=== PATIENT | female | born 1950 | race Caucasian/White ===

== ENCOUNTER 2017-12-02 13:42 | Inpatient (IN) | payer MEDICARE, OTHER ==
[~2017-12-02 13:42] MED LIST: MIDAZOLAM 2 MG/2 ML VIAL IV PRN; ceFAZolin 1,000 MG in SODIUM CHLORIDE 0.9% IRRIGATIO 250 ML IRRIGATION ONE; ceFAZolin IN SWFI 2 GM/20 ML SYRINGE IVP ONE; fentaNYL (PF) 50 MCG/ML 2 ML AMP IV PRN
[2017-12-02 14:27] LABS: Glucose,Whole Blood 121 mg/dL (75-99)
[2017-12-02] MEDS: SODIUM CHLORIDE 0.9% 1,000 ML IV SCH (14:31)
[2017-12-02 14:40] LABS: Anisocytosis Slight; Basophils % (A) 0 %; Eosinophils # (A) 0.2 k/uL (0-0.7); Eosinophils % (A) 2 %; HCT 34.1 % (34.0-46.0); HGB 10.8 gm/dL (11.4-16.0); Lymphocytes # (A) 1.2 k/uL (1.0-4.8); Lymphocytes % (A) 12 %; MCHC 31.8 g/dL (31.0-37.0); MCV 85.1 fL (80.0-100.0); Mean Platelet Volume 7.9; Monocytes # (A) 0.7 k/uL (0-1.0); Monocytes % (A) 7 %; Neutrophils # (A) 7.6 k/uL (1.3-7.7); Neutrophils % (A) 77 %; Platelet Count 205 k/uL (150-450); RBC 4.01 m/uL (3.80-5.40); RDW 16.3 % (11.5-15.5); WBC 9.9 k/uL (3.8-10.6)
[2017-12-02 14:45] LABS: Calcium 9.2 mg/dL (8.4-10.2); Potassium 4.8 mmol/L (3.5-5.1)
[2017-12-02 14:47] LABS: INR 2.5 (<1.2); Prothrombin Time 22.4 sec (9.0-12.0)
[2017-12-02] MEDS ORDERED: LIDOCAINE 1% INJ 10MG/ML (20 ML MDV) ONE (15:04)
[2017-12-02] MEDS ORDERED: LIDOCAINE 1% INJ 10MG/ML (20 ML MDV) SQ ONE ×4 (15:42→17:01)
[2017-12-02] MEDS ORDERED: NITROGLYCERIN OINT 1 INCH/GM PACKET TOPICAL ONE (15:58)
[2017-12-02] MEDS ORDERED: FUROSEMIDE 10 MG/ML 4 ML VIAL ONE ×2 (16:06→16:13)
[2017-12-02] MEDS ORDERED: DOBUTamine DRIP 500 MG in DEXTROSE/WATER 1 250ML.BAG IV ONE (16:45)
[2017-12-02] MEDS ORDERED: ACETAMINOPHEN TAB 325 MG TAB PO PRN (17:24)
--- NOTE | 2017-12-02 17:36 | P.PCN ---
Preoperative Diagnosis: Management of flash pulmonary edema during biventricular ICD generator change Patient started complaining of shortness of breath while lying flat on the EP lab table as the generator, biventricular ICD, was be connected to the leads. Her respirations deteriorated rapidly. motor carrier inspector was called immediately. An additional pump house operator was also called. She was intubated, given 1 dose of IV epinephrine and a biventricular ICD/biventricular pacemaker was programmed to a single zone VF with Bi V pacing turned on a total of 120 mg of IV Lasix was administered followed by an IV Lasix drip that was started at 10 mg /h Briefly 1 inch of Nitropaste was used which was removed later. Under sterile precautions 1. A Solis catheter was placed Under sterile precautions a right femoral venous sheath was placed for central venous access. Access was obtained a guidewire was placed and an 8-Burkinan sheath was placed in the femoral vein on the right side Under sterile precautions femoral arterial access was obtained. A guidewire was placed. A 5-Burkinan arterial sheath was placed for continuous hemodynamic monitoring and sampling Both the arterial and venous sheaths were then secured to the skin Plan ICU management IV Lasix drip 10 mg an hour IV antibiotics 4 doses IV dobutamine 5 g per KG per minute IV dopamine 2 mics per KG per minute Strict intake output charting Continue warfarin, continue spironolactone Continue statins, continue Singulair Hold beta blockers and angiotensin receptor blockers Discussed with family including and daughter
[2017-12-02] MEDS ORDERED: IPRATROPIUM-ALBUTEROL 3 ML NEB INHALATION PRN (18:54)
[2017-12-02] MEDS ORDERED: PROPOFOL 100 ML IV ONE (18:55)
[2017-12-02 18:58] LABS: Glucose,Whole Blood 208 mg/dL (75-99)
[2017-12-02] MEDS: LACTATED RINGERS 1,000 ML IV SCH (19:11)
[2017-12-02] MEDS: FUROSEMIDE 250 MG in SODIUM CHLORIDE 0.9% 225 ML IVP SCH (19:15)
[2017-12-02 19:31] LABS: ABG Base Excess 0.2 mmol/L; ABG HCO3 27 mmol/L (21-25); ABG PCO2 58 mmHg (35-45); ABG PH 7.28 (7.35-7.45); ABG PO2 86 mmHg (83-108); ABG TCO2 29 mmol/L (19-24)
--- NOTE | 2017-12-02 19:45 | CE ---
CARDIAC ELECTROPHYSIOLOGY REPORT Priscilla Gee has a biventricular ICD which is at [facility]. She has severe congestive heart failure class III as well as severe cardiomyopathy and device at [facility] for normal battery depletion. She was brought into the EP lab in the fasting state. Written informed consent was obtained prior to the procedure. The left shoulder area was prepped and draped as per protocol. An incision was made over the generator and carried down to the level of the generator. Hemostasis was assured. A partial capsulectomy was performed. The device was removed. A new device was connected. As the new device was being connected, she started complaining of shortness of breath and difficulty breathing and went into flash pulmonary edema with acute respiratory failure, requiring intubation. Please see the separate dictation for this. As she was being intubated by anesthesia, the incision site was covered sterilely and with sterile precautions and once she was intubated and her respirations were controlled, the wound was closed in 3 layers and dressed per protocol. She received perioperative antibiotics. MMODL / IJN: [id number] /
[2017-12-02] MEDS: IPRATROPIUM-ALBUTEROL 3 ML NEB INHALATION SCH ×2 (20:00→23:16)
[2017-12-02] MEDS ORDERED: NOREPINEPHRINE 4 MG in DEXTROSE 5% IN WATER 250 ML IV SCH ×2 (20:15)
[2017-12-02] MEDS ORDERED: NOREPINEPHRIN 4 MG-0.9% NS PMX 4 MG/250 ML ML IV ONE (20:32)
[2017-12-02] MEDS: AMIODARONE 450 MG in DEXTROSE 5% IN WATER 250 ML IV SCH ×2 (21:00)
--- NOTE | 2017-12-02 21:16 | XR ---
EXAMINATION: XR chest 1V portable DATE AND TIME: 12/02/2017 7:14 PM ORDERING PROVIDER: Tennille Armenta MD CLINICAL INDICATION: Tube placement TECHNIQUE: AP semiupright portable COMPARISON: 12/20/2015 DESCRIPTION: ET tube tip at the ryan and may be better placed if withdrawn 3 cm proximally. Cardiac pacemaker and EKG leads. There is a whiteout of the right hemithorax, having the appearance of a posteriorly layering large pl eural effusion and airspace filling process throughout the right upper and mid and lower lung zones. There remains partial inflation of the right lung, however. Left upper lung zone is well inflated. The left mid and lower lung zone appears only partially inflat ed. Moderately enlarged cardiac silhouette. No definite abnormal gas collections, but supine radiography cannot exclude pneumothorax or pneumoperitoneum. IMPRESSION: POST INTUBATION CHEST X-RAY, ET TUBE TIP MAY BE BETTER PLACED MORE PROXIMALLY.
[2017-12-02 21:24] LABS: ABG Base Excess -1.9 mmol/L; ABG HCO3 24 mmol/L (21-25); ABG Oxygen Saturation 95.6 % (94-97); ABG PCO2 45 mmHg (35-45); ABG PH 7.34 (7.35-7.45); ABG PO2 76 mmHg (83-108); ABG TCO2 25 mmol/L (19-24)
[2017-12-02] MEDS: WARFARIN 3 MG TAB PO SCH (21:54)
[2017-12-02] MEDS: PROPOFOL 1,000 MG in EMPTY BAG 1 BAG IV SCH (21:55)
[2017-12-02] MEDS: INSULIN DETEMIR 100 UNIT/ML 10 ML VIAL SQ SCH (22:00)
[2017-12-02] MEDS: MONTELUKAST 10 MG TAB PO SCH (22:00)
[2017-12-02] MEDS: CHLORHEXIDINE GLUCONATE 15 ML CUP MUCOUS MEM SCH (22:00)
[2017-12-02] MEDS: ATORVASTATIN 20 MG TAB PO SCH (22:00)
[2017-12-02] MEDS: ceFAZolin IN SWFI 2 GM/20 ML SYRINGE IVP SCH (22:02)
[2017-12-02 22:05] LABS: Glucose,Whole Blood 260 mg/dL (75-99)
[2017-12-02] MEDS ORDERED: INSULIN ASPART 100 UNIT/ML 1 ML 10 ML VIAL SQ SCH (22:30)
[2017-12-02] MEDS ORDERED: fentaNYL (PF) 2,500 MCG in SODIUM CHLORIDE 0.9% 200 ML IV SCH (23:00)
[2017-12-03 00:27] LABS: Glucose,Whole Blood 315 mg/dL (75-99)
[2017-12-03] MEDS: SODIUM CHLORIDE 0.9% 1,000 ML IV SCH (02:30)
[2017-12-03] MEDS: IPRATROPIUM-ALBUTEROL 3 ML NEB INHALATION SCH ×5 (03:15→20:24)
[2017-12-03] MEDS: AMIODARONE 450 MG in DEXTROSE 5% IN WATER 250 ML IV SCH ×8 (03:50→22:32)
[2017-12-03] MEDS: ceFAZolin IN SWFI 2 GM/20 ML SYRINGE IVP SCH ×3 (04:03→15:16)
[2017-12-03] MEDS: INSULIN ASPART 100 UNIT/ML 1 ML 10 ML VIAL SQ SCH ×4 (04:05→18:57)
[2017-12-03] MEDS: PROPOFOL 1,000 MG in EMPTY BAG 1 BAG IV SCH ×2 (04:16→08:35)
[2017-12-03 04:26] LABS: Anisocytosis Slight; HGB 11.1 gm/dL (11.4-16.0); Hypochromasia Slight; MCH 27.2 pg (25.0-35.0); MCHC 31.8 g/dL (31.0-37.0); MCV 85.6 fL (80.0-100.0); Mean Platelet Volume 8.3; Platelet Count 259 k/uL (150-450); RBC 4.09 m/uL (3.80-5.40); WBC 20.3 k/uL (3.8-10.6)
[2017-12-03 04:36] LABS: INR 2.7 (<1.2); Prothrombin Time 24.1 sec (9.0-12.0)
[2017-12-03 04:41] LABS: Albumin 3.4 g/dL (3.5-5.0); Calcium 8.6 mg/dL (8.4-10.2); Magnesium 1.9 mg/dL (1.6-2.3); Phosphorus 4.1 mg/dL (2.5-4.5); Total Bilirubin 0.2 mg/dL (0.2-1.3); Total Protein 5.7 g/dL (6.3-8.2)
[2017-12-03] MEDS ORDERED: Magnesium Replacement Protocol 1 EACH MISC MISCELLANE PRN (04:54)
[2017-12-03] MEDS ORDERED: NOREPINEPHRIN 16 MG-0.9%NS PMX 16 MG/250 ML ML IV SCH (05:30)
--- NOTE | 2017-12-03 06:28 | P.PN ---
Progress Note - Text Progress Note Date: 12/02/17 Brief incident note: Patient is a 66-year-old female who was scheduled for by the pacemaker generator change. Patient is a history of severe cardiomyopathy with an EF of 15%. Prior to procedure patient stated that she was tolerant to laying flat, and throughout the majority of the procedure the patient was tolerating laying supine position well. However about three quarters into the procedure was to new generator was placed, patient was complaining of shortness of breath. She is quickly placed in the reverse Trendelenburg position as much was allowed on the electrophysiology bed. Patient appeared to go into flash pulmonary edema. We quickly secured and airway with an endotracheal tube. During the process of securing an airway we will unable to obtain a palpable pulse, and ACLS protocol then ensued. Chest compressions were initiated and 1 mg of epinephrine wasn't was given. A pulse was quickly then identified within 1 minute and ACLS was suspended. Arterial line and central venous catheter were placed. Prior to transportation to the intensive care unit, patient was following commands moving all extremities, and hemodynamically stable on dobutamine 5 mics per KG minute.
[2017-12-03 06:51] LABS: Glucose,Whole Blood 233 mg/dL (75-99)
[2017-12-03] MEDS: LEVOTHYROXINE 25 MCG TAB PO SCH (06:57)
[2017-12-03] MEDS: LACTATED RINGERS 1,000 ML IV SCH (07:03)
--- NOTE | 2017-12-03 07:18 | XR ---
EXAMINATION TYPE: XR chest 1V portable DATE OF EXAM: 12/03/2017 Comparison: 12/02/2017 Clinical History: 66-year-old female Tube placement Findings: ET tube has been pulled back in the interval. The tip is 3.7 cm from the ryan. NG tube is satisfact ory. Left anterior chest wall is the generator with right atrial and right ventricular leads. Overlyi ng skin dorcas. Significantly improved aeration of the right lung though residual hazy densities rem ain throughout. Continued dense opacity in the retrocardiac region. Impression: 1. ET tube pulled back, now satisfactory, with improving aeration in the right lung. There is residua l diffuse edema or atelectasis that remains on the right. 2. Continued dense retrocardiac atelectasis and/or consolidation or underlying effusion.
--- NOTE | 2017-12-03 08:10 | P.PN ---
Subjective Principal diagnosis: Patient is still intubated. She is on IV Lasix drip has had an adequate urine output of between 50-100 mL per hour. She is not on dobutamine or dopamine is on levo fed for blood pressure management. She has had ventricular ectopy on Levophed. She also had a rapid supraventricular possibly atrial fibrillation and was started on IV amiodarone last night. Labs are reviewed.[id number] hemoglobin 11.1, sodium 135, potassium 4.0, BUN 56, creatinine 1.9 Pulse rate in the 70s, intermittent Bi V pacing, ventricular ectopy noted, on levo fed blood pressure 126/54 mmHg Breath sounds are reduced bilaterally but equal Heart sounds are distant Extremity is warm skin is warm Impression /Pulmonary edema during ICD generator change requiring intubation, IV Lasix push as well as drip, IV dobutamine Central venous line, femoral was placed Femoral arterial line for hemodynamic monitoring was placed Severe cardio myopathy and heart failure history Discussed with nurses Discussed with nurse practitioner Suggest Reduce Levophed dose to maintain blood pressure around 100 systolic Continue IV Lasix drip Continue IV antibiotics Hopefully she can be extubated today and oppressors can come off once her sedation is off Patient of Dr. VC Roman was around Status at this time She will need higher doses of oral diuretics as an outpatient and we will have to except a higher BUN/creatinine to keep her free of heart failure symptoms especially orthopnea Objective - Vital Signs Vital signs: Vital Signs Temp 97.9 F 12/03/17 06:00 Pulse 74 12/03/17 08:00 Resp 23 12/03/17 08:00 BP 178/77 12/02/17 18:40 Pulse Ox 97 12/03/17 08:00 Intake & Output 12/02/17 12/03/17 12/03/17 18:59 06:59 18:59 Intake Total 52 1009.98 80 Output Total 1085 100 Balance 52 -75.02 -20 Weight 125.7 kg 130.181 kg Intake: IV 52 710 80 Furosemide 250 mg In 110 10 Sodium Chloride 0.9% 225 ml @ 10 MG/HR 10 mls/hr IVP .Q24H KRISTY Rx#: [id number] Lactated Ringers 1,000 ml 20 @ 20 mls/hr IV .Q24H KRISTY Rx#:[id number] Sodium Chloride 0.9% 1, 600 50 000 ml @ 50 mls/hr IV . Q20H KRISTY Rx#:[id number] Intake, IV Titration 299.98 Amount Amiodarone 450 mg In 199.98 Dextrose 5% in Water 250 ml @ 1 MG/MIN 33.33 mls/ hr IV .Q7H31M KRISTY Rx#: [id number] Propofol 1,000 mg In 100 Empty Bag 1 bag @ Titrate IV .Q0M KRISTY Rx#: [id number] Output: Urine 1085 100 Other: Voiding Method Indwelling Catheter ABP, PAP, CO, CI - Last Documented Arterial Blood Pressure 126/51 - Labs CBC & Chem 7: 12/03/17 04:14 12/03/17 04:14 Labs: Abnormal Lab Results - Last 24 Hours (Table) 12/02/17 12/02/17 12/02/17 Range/Units 14:10 14:10 14:10 WBC (3.8-10.6) k/uL Hgb 10.8 L (11.4-16.0) gm/dL RDW 16.3 H (11.5-15.5) % PT 22.4 H (9.0-12.0) sec INR 2.5 H (<1.2) ABG pH (7.35-7.45) ABG pCO2 (35-45) mmHg ABG pO2 (83-108) mmHg ABG HCO3 (21-25) mmol/L ABG Total CO2 (19-24) mmol/L Sodium (137-145) mmol/L BUN 56 H (7-17) mg/dL Creatinine 1.70 H (0.52-1.04) mg/dL Glucose 109 H (74-99) mg/dL POC Glucose (mg/dL) (75-99) mg/dL Total Protein (6.3-8.2) g/dL Albumin (3.5-5.0) g/dL 12/02/17 12/02/17 12/02/17 Range/Units 14:19 18:38 19:28 WBC (3.8-10.6) k/uL Hgb (11.4-16.0) gm/dL RDW (11.5-15.5) % PT (9.0-12.0) sec INR (<1.2) ABG pH 7.28 L (7.35-7.45) ABG pCO2 58 H (35-45) mmHg ABG pO2 (83-108) mmHg ABG HCO3 27 H (21-25) mmol/L ABG Total CO2 29 H (19-24) mmol/L Sodium (137-145) mmol/L BUN (7-17) mg/dL Creatinine (0.52-1.04) mg/dL Glucose (74-99) mg/dL POC Glucose (mg/dL) 121 H 208 H (75-99) mg/dL Total Protein (6.3-8.2) g/dL Albumin (3.5-5.0) g/dL 12/02/17 12/02/17 12/03/17 Range/Units 21:20 22:03 00:22 WBC (3.8-10.6) k/uL Hgb (11.4-16.0) gm/dL RDW (11.5-15.5) % PT (9.0-12.0) sec INR (<1.2) ABG pH 7.34 L (7.35-7.45) ABG pCO2 (35-45) mmHg ABG pO2 76 L (83-108) mmHg ABG HCO3 (21-25) mmol/L ABG Total CO2 25 H (19-24) mmol/L Sodium (137-145) mmol/L BUN (7-17) mg/dL Creatinine (0.52-1.04) mg/dL Glucose (74-99) mg/dL POC Glucose (mg/dL) 260 H 315 H (75-99) mg/dL Total Protein (6.3-8.2) g/dL Albumin (3.5-5.0) g/dL 12/03/17 12/03/17 12/03/17 Range/Units 04:14 04:14 04:14 WBC 20.3 H (3.8-10.6) k/uL Hgb 11.1 L (11.4-16.0) gm/dL RDW 16.0 H (11.5-15.5) % PT 24.1 H (9.0-12.0) sec INR 2.7 H (<1.2) ABG pH (7.35-7.45) ABG pCO2 (35-45) mmHg ABG pO2 (83-108) mmHg ABG HCO3 (21-25) mmol/L ABG Total CO2 (19-24) mmol/L Sodium 135 L (137-145) mmol/L BUN 56 H (7-17) mg/dL Creatinine 1.90 H (0.52-1.04) mg/dL Glucose 259 H (74-99) mg/dL POC Glucose (mg/dL) (75-99) mg/dL Total Protein 5.7 L (6.3-8.2) g/dL Albumin 3.4 L (3.5-5.0) g/dL 12/03/17 Range/Units 06:28 WBC (3.8-10.6) k/uL Hgb (11.4-16.0) gm/dL RDW (11.5-15.5) % PT (9.0-12.0) sec INR (<1.2) ABG pH (7.35-7.45) ABG pCO2 (35-45) mmHg ABG pO2 (83-108) mmHg ABG HCO3 (21-25) mmol/L ABG Total CO2 (19-24) mmol/L Sodium (137-145) mmol/L BUN (7-17) mg/dL Creatinine (0.52-1.04) mg/dL Glucose (74-99) mg/dL POC Glucose (mg/dL) 233 H (75-99) mg/dL Total Protein (6.3-8.2) g/dL Albumin (3.5-5.0) g/dL
[2017-12-03] MEDS: MAGNESIUM SULFATE-D5W PMX 1 GM in DEXTROSE/WATER 1 100ML.BAG IVPB SCH ×2 (08:39→10:03)
[2017-12-03] MEDS: CHLORHEXIDINE GLUCONATE 15 ML CUP MUCOUS MEM SCH (08:40)
[2017-12-03] MEDS: SPIRONOLACTONE 25 MG TAB PO SCH (08:40)
[2017-12-03] MEDS ORDERED: LIDOCAINE 2% SYG (PF) 100 MG/5 ML ONE (09:18)
[2017-12-03 09:25] LABS: ABG Base Excess 0.2 mmol/L; ABG HCO3 24 mmol/L (21-25); ABG PCO2 36 mmHg (35-45); ABG PH 7.44 (7.35-7.45); ABG PO2 78 mmHg (83-108); ABG TCO2 25 mmol/L (19-24)
[2017-12-03 12:17] LABS: Glucose,Whole Blood 170 mg/dL (75-99)
[2017-12-03 13:23] LABS: Hemoglobin A1C 6.7 % (4.0-6.0)
--- NOTE | 2017-12-03 13:26 | P.CNPUL ---
History of Present Illness Consult date: 12/03/17 Requesting physician: Larry Hogan Reason for consult: other (Acute respiratory failure secondary to pulmonary edema) Chief complaint: Status post ICD generator change, complicated by acute pulmonary edema and History of present illness: This is a 66-year-old female, known history of severe cardiomyopathy, previous biventricular ICD placement. Patient has chronic severe congestive heart failure class III, patient was brought in yesterday by cardiology/Dr. Chavez for ICD generator change. While in the EP lab, left shoulder incision was made , partial capsulectomy was performed, device was removed, and a new device was connected. As the new device was being connected, patient started complaining of shortness of breath and difficulty breathing. Clinically the patient went into flash pulmonary edema with acute respiratory failure requiring intubation and mechanical ventilation. Patient was admitted to the intensive care unit and I was asked to see her on consultation. Overnight, the patient required pressors, she also required Lasix drip. I reviewed the chest x-ray shortly after the patient was intubated, and she was clearly in pulmonary edema. When I saw the patient this morning, her chest x-ray showed dramatic improvement, however she was still on 9 g of levo fed. Patient was also on the following vent settings assist control rate of 24 tidal volume of 400 FiO2 of 50% and PEEP of 5. ABG this morning showed a pO2 of 7 pCO2 of 36 and pH of 7.44. Labs , medications, ABG, were all reviewed chest x-ray was also reviewed. Patient was already on propofol which I have discontinued, awaken the patient, and she was very appropriate and followed all instructions properly. Then I proceeded to a short trial of weaning utilizing pressure support of 8 and CPAP. Patient did well for about half an hour while I was at bedside. Then I proceeded to extubating the patient. In the meantime I kept the patient on her Lasix drip, and she is back on her usual cardiac meds. Norepinephrine will be titrated down and hopefully discontinued soon. Patient had an excellent urine output, and her labs were basically unremarkable. She was noted however to have some ventricular ectopy on levo fed, and she was on amiodarone overnight. Review of Systems ROS unobtainable: due to endotracheal tube Past Medical History Past Medical History: Asthma, Coronary Artery Disease (CAD), Heart Failure, COPD , Diabetes Mellitus, Fibromyalgia, Hyperlipidemia, Hypertension, Renal Disease, Thyroid Disorder Additional Past Medical History / Comment(s): RENAL INSUFFICENCY,GOUT,ARRYTHMIA , CARDIOMYOPATHY,VARICOSE VEINS,HX PNEUMONIA & BRONCHITIS, HEMMRROIDS, STRESS INCONT OF URINE, ANEMIA; See DR HOGAN'S H&P History of Any Multi-Drug Resistant Organisms: None Reported Past Surgical History: Heart Catheterization, Tubal Ligation Additional Past Surgical History / Comment(s): 3 LEAD PACEMAKER AND DEFIB, RT BREAST LUMPECTOMY(BENIGN) HEART CATH 1996, BRONCHOSCOPY , Past Anesthesia/Blood Transfusion Reactions: No Reported Reaction Type of Cardiac Device: Permanent Pacemaker Device Placement Date:: Past Psychological History: No Psychological Hx Reported Smoking Status: Former smoker Past Alcohol Use History: None Reported Additional Past Alcohol Use History / Comment(s): smoked 1ppd from teens until 1985 Past Drug Use History: None Reported - Past Family History Father Family Medical History: Congestive Heart Failure (CHF), Coronary Artery Disease (CAD) Medications and Allergies Home Medications Medication Instructions Recorded Confirmed Type Montelukast [Singulair] 10 mg PO HS 09/23/13 12/02/17 History Simvastatin [Zocor] 40 mg PO HS 09/23/13 12/02/17 History Warfarin Sodium [Coumadin] 6 mg PO SUTUTH 09/23/13 12/02/17 History hydrALAZINE HCL [Apresoline] 25 mg PO TID 09/23/13 12/02/17 History Levothyroxine Sodium [Synthroid] 25 mcg PO DAILY@0630 #30 tab 09/26/13 12/02/17 Rx Allopurinol [Zyloprim] 300 mg PO DAILY 12/20/15 12/02/17 History Losartan Potassium [Cozaar] 50 mg PO DAILY 12/20/15 12/02/17 History Metoprolol Tartrate [Lopressor] 100 mg PO BID 12/20/15 12/02/17 History Spironolactone [Aldactone] 25 mg PO DAILY 12/20/15 12/02/17 History Warfarin Sodium [Coumadin] 3 mg PO [id number] 12/20/15 12/02/17 History Albuterol Inhaler [Ventolin Hfa 1 - 2 puff INHALATION RT-Q6H PRN 12/21/15 Rx Inhaler] #1 inhaler Bumetanide [BUMEX] 1 mg PO HS 11/24/17 12/02/17 History Bumetanide [Bumex] 2 mg PO [id number] 11/24/17 12/02/17 History Insulin Glargine,Hum.rec.anlog 41 unit SQ HS 12/02/17 12/02/17 History [Basaglar Kwikpen U-100] Allergies Allergy/AdvReac Type Severity Reaction Status Date / Time sotalol Allergy Rapid Verified 12/02/17 19:11 Heart Rate ADHESIVE TAPE Allergy Itching Uncoded 12/02/17 14:00 Physical Exam Vitals: Vital Signs Temp Pulse Pulse Resp BP BP Pulse Ox 12/03/17 11:50 101 H 18 12/03/17 11:41 100 18 12/03/17 11:30 102 H 17 92 L 12/03/17 11:00 106 H 16 96 12/03/17 10:30 94 20 98 12/03/17 10:00 74 16 97 12/03/17 09:30 87 24 96 12/03/17 09:00 73 27 H 95 12/03/17 08:30 79 24 97 12/03/17 08:00 74 23 97 12/03/17 07:52 85 24 12/03/17 07:31 69 24 12/03/17 07:15 73 24 97 12/03/17 07:00 96 24 97 12/03/17 06:45 74 24 97 12/03/17 06:30 74 24 97 12/03/17 06:15 74 24 96 12/03/17 06:00 97.9 F 91 25 H 97 12/03/17 05:45 69 24 97 12/03/17 05:30 92 24 98 12/03/17 05:15 82 24 97 12/03/17 05:00 69 24 97 12/03/17 04:45 75 25 H 97 12/03/17 04:30 69 24 97 12/03/17 04:15 69 24 96 12/03/17 04:00 69 25 H 97 12/03/17 03:45 69 24 97 12/03/17 03:30 69 24 97 12/03/17 03:21 69 12/03/17 03:15 85 24 98 12/03/17 03:11 69 12/03/17 03:00 69 24 98 12/03/17 02:45 75 24 98 12/03/17 02:30 69 24 98 12/03/17 02:15 73 24 98 12/03/17 02:00 69 24 98 12/03/17 01:45 69 24 99 12/03/17 01:30 68 25 H 98 12/03/17 01:15 85 24 98 12/03/17 01:00 86 24 98 12/03/17 00:45 69 24 99 12/03/17 00:30 69 25 H 98 12/03/17 00:15 69 24 98 12/03/17 00:00 97.7 F 69 24 99 12/02/17 23:45 69 24 99 12/02/17 23:30 69 24 98 12/02/17 23:26 72 12/02/17 23:18 69 12/02/17 23:15 69 25 H 98 12/02/17 23:00 71 24 98 12/02/17 22:45 69 25 H 97 12/02/17 22:30 90 26 H 96 12/02/17 22:15 69 24 96 12/02/17 22:00 76 24 96 12/02/17 21:45 80 25 H 94 L 12/02/17 21:30 81 24 94 L 12/02/17 21:16 71 24 94 L 12/02/17 21:15 71 23 94 L 12/02/17 21:00 92 20 92 L 12/02/17 20:45 108 H 23 92 L 12/02/17 20:30 121 H 23 94 L 12/02/17 20:15 134 H 25 H 89 L 12/02/17 20:00 160 H 19 95 12/02/17 19:45 174 H 16 87 L 12/02/17 19:30 114 H 16 95 12/02/17 19:15 117 H 18 12/02/17 19:00 97.5 F L 133 H 16 93 L 12/02/17 18:40 136 H 16 178/77 91 L 12/02/17 18:33 95 12/02/17 14:29 98.1 F 93 18 131/60 95 Intake and Output 12/02/17 12/03/17 12/03/17 22:59 06:59 14:59 Intake Total 280 779.98 500 Output Total 265 820 420 Balance 15 -40.02 80 Intake: IV 280 480 400 Furosemide 250 mg In 30 80 60 Sodium Chloride 0.9% 225 ml @ 10 MG/HR 10 mls/hr IVP .Q24H KRISTY Rx#: [id number] Lactated Ringers 1,000 ml 120 @ 20 mls/hr IV .Q24H KRISTY Rx#:[id number] Sodium Chloride 0.9% 1, 200 400 220 000 ml @ 50 mls/hr IV . Q20H KRISTY Rx#:[id number] Intake, IV Titration 299.98 100 Amount Amiodarone 450 mg In 199.98 Dextrose 5% in Water 250 ml @ 1 MG/MIN 33.33 mls/ hr IV .Q7H31M KRISTY Rx#: [id number] Propofol 1,000 mg In 100 100 Empty Bag 1 bag @ Titrate IV .Q0M KRISTY Rx#: [id number] Output: Urine 265 820 420 Other: Voiding Method Indwelling Catheter Indwelling Catheter Indwelling Catheter Weight 130.181 kg ABP, PAP, CO, CI - Last 8 Hours Arterial Blood Pressure 115/51 Arterial Blood Pressure 124/55 Arterial Blood Pressure 121/48 Arterial Blood Pressure 101/40 Arterial Blood Pressure 99/44 Arterial Blood Pressure 98/43 Arterial Blood Pressure 106/48 Arterial Blood Pressure 126/51 Arterial Blood Pressure 129/58 Arterial Blood Pressure 124/54 Arterial Blood Pressure 105/57 Arterial Blood Pressure 138/58 Arterial Blood Pressure 142/65 Arterial Blood Pressure 144/55 Arterial Blood Pressure 124/54 Arterial Blood Pressure 119/49 Arterial Blood Pressure 94/48 Physical Exam: Revealed a 66-year-old female obese, on mechanical ventilation, in no distress. Arousable, followed all simple instructions. Head: Atraumatic, normocephalic. HEENT:[Neck is supple.] [No neck masses.] [No thyromegaly.] [No JVD.] PERRLA, EOMI, endotracheal tube is intact. Chest: [Crackles at the right base, no rhonchi, no wheezes. Symmetrical chest expansion noted.] Cardiac Exam: [Irregular rhythm Normal S1 and S2, no S3 gallop, 2/6 systolic murmur thought the precordium. Abdomen: [Obese, Soft, nontender, no megaly, no rebound, no guarding, normal bowel sounds.] Extremities: [No clubbing, trace of bipedal edema, no cyanosis.] Good pulses bilaterally upper and lower extremities. Neurological Exam: [No focal neurologic deficit. Patient on mechanical ventilation, however able to follow all instructions when the propofol was weaned down. Lymphatics: Lymphadenopathy. Psychiatric: Normal mood affect and mental status examination.] Results - Laboratory Findings CBC and BMP: 12/03/17 04:14 12/03/17 12:03 ABG ABG pH 7.44 (7.35-7.45) 12/03/17 09:21 ABG pCO2 36 mmHg (35-45) 12/03/17 09:21 ABG pO2 78 mmHg (83-108) L 12/03/17 09:21 ABG O2 Saturation 97.0 % (94-97) 12/03/17 09:21 PT/INR, D-dimer PT 24.1 sec (9.0-12.0) H 12/03/17 04:14 INR 2.7 (<1.2) H 12/03/17 04:14 Abnormal lab findings: Abnormal Labs 12/02/17 12/02/17 12/02/17 14:10 14:10 14:10 WBC Hgb 10.8 L RDW 16.3 H PT 22.4 H INR 2.5 H ABG pH ABG pCO2 ABG pO2 ABG HCO3 ABG Total CO2 Sodium BUN 56 H Creatinine 1.70 H Glucose 109 H POC Glucose (mg/dL) Total Protein Albumin 12/02/17 12/02/17 12/02/17 14:19 18:38 19:28 WBC Hgb RDW PT INR ABG pH 7.28 L ABG pCO2 58 H ABG pO2 ABG HCO3 27 H ABG Total CO2 29 H Sodium BUN Creatinine Glucose POC Glucose (mg/dL) 121 H 208 H Total Protein Albumin 12/02/17 12/02/17 12/03/17 21:20 22:03 00:22 WBC Hgb RDW PT INR ABG pH 7.34 L ABG pCO2 ABG pO2 76 L ABG HCO3 ABG Total CO2 25 H Sodium BUN Creatinine Glucose POC Glucose (mg/dL) 260 H 315 H Total Protein Albumin 12/03/17 12/03/17 12/03/17 04:14 04:14 04:14 WBC 20.3 H Hgb 11.1 L RDW 16.0 H PT 24.1 H INR 2.7 H ABG pH ABG pCO2 ABG pO2 ABG HCO3 ABG Total CO2 Sodium 135 L BUN 56 H Creatinine 1.90 H Glucose 259 H POC Glucose (mg/dL) Total Protein 5.7 L Albumin 3.4 L 12/03/17 12/03/17 12/03/17 06:28 09:21 12:13 WBC Hgb RDW PT INR ABG pH ABG pCO2 ABG pO2 78 L ABG HCO3 ABG Total CO2 25 H Sodium BUN Creatinine Glucose POC Glucose (mg/dL) 233 H 170 H Total Protein Albumin - Diagnostic Findings Chest x-ray: image reviewed (Endotracheal tube is in the proper position, significant improvement overnight in the pulmonary edema bilaterally, continues to have some dense retrocardiac atelectasis and possibly a small effusion.) Assessment and Plan Assessment: Impression: 1 acute hypoxic respiratory failure requiring intubation and mechanical ventilation secondary to flash pulmonary edema secondary to severe cardiomyopathy and LV dysfunction. 2 status post ICD generator change, postoperative day #1. 3 intermittent ventricular ectopy, being addressed by cardiology on the case. 4 hypotension secondary to severe cardiomyopathy and LV dysfunction 5 nonischemic cardiomyopathy and LV dysfunction 6 type 2 diabetes 7 hypothyroidism maintained on Synthroid 8 acute on chronic kidney failure with history of stage III chronic kidney disease 9 suspect some component of acute kidney injury and acute tubular necrosis. Secondary to hypotension. Recommendation: Continue present treatment plan including diuretics, antibiotics , pressors which will be titrated accordingly, amiodarone for arrhythmia, continue to monitor in the ICU for the next 24 hours, and likely transfer to a monitor bed in the next 24 hours if she continues to demonstrate clinical stability. We'll continue to follow. Patient was extubated uneventfully to a nasal cannula. Critical care time is 45 minutes. Time with Patient: Greater than 30
[2017-12-03] MEDS: FUROSEMIDE 250 MG in SODIUM CHLORIDE 0.9% 225 ML IVP SCH (13:31)
--- NOTE | 2017-12-03 15:00 | P.HPIM ---
History of Present Illness H&P Date: 12/03/17 (Patient seen and evaluated examined while covering for Dr. Adams) Chief Complaint: Acute hypoxic respirator failure This is a 66-year-old female, known history of severe cardiomyopathy, previous biventricular ICD placement. Patient has chronic severe congestive heart failure class III, patient was brought in yesterday by cardiology/Dr. Chavez for ICD generator change. While in the EP lab, left shoulder incision was made , partial capsulectomy was performed, device was removed, and a new device was connected. As the new device was being connected, patient started complaining of shortness of breath and difficulty breathing. Clinically the patient went into flash pulmonary edema with acute respiratory failure requiring intubation and mechanical ventilation. Patient was admitted to the intensive care unit Patient did require transient vasopressors however came off of it patient was giving Lasix drip this, patient successfully weaned and extubated earlier this morning however patient continued to be short of breath has wheezing has dry nonproductive cough Review of Systems All systems: negative Past Medical History Past Medical History: Asthma, Coronary Artery Disease (CAD), Heart Failure, COPD , Diabetes Mellitus, Fibromyalgia, Hyperlipidemia, Hypertension, Renal Disease, Thyroid Disorder Additional Past Medical History / Comment(s): RENAL INSUFFICENCY,GOUT,ARRYTHMIA , CARDIOMYOPATHY,VARICOSE VEINS,HX PNEUMONIA & BRONCHITIS, HEMMRROIDS, STRESS INCONT OF URINE, ANEMIA; See DR IGNACIO'S H&P History of Any Multi-Drug Resistant Organisms: None Reported Past Surgical History: Heart Catheterization, Tubal Ligation Additional Past Surgical History / Comment(s): 3 LEAD PACEMAKER AND DEFIB, RT BREAST LUMPECTOMY(BENIGN) HEART CATH 1996, BRONCHOSCOPY , Past Anesthesia/Blood Transfusion Reactions: No Reported Reaction Type of Cardiac Device: Permanent Pacemaker Device Placement Date:: Past Psychological History: No Psychological Hx Reported Smoking Status: Former smoker Past Alcohol Use History: None Reported Additional Past Alcohol Use History / Comment(s): smoked 1ppd from teens until 1985 Past Drug Use History: None Reported - Past Family History Father Family Medical History: Congestive Heart Failure (CHF), Coronary Artery Disease (CAD) Medications and Allergies Home Medications Medication Instructions Recorded Confirmed Type Montelukast [Singulair] 10 mg PO HS 09/23/13 12/02/17 History Simvastatin [Zocor] 40 mg PO HS 09/23/13 12/02/17 History Warfarin Sodium [Coumadin] 6 mg PO SUTUTH 09/23/13 12/02/17 History hydrALAZINE HCL [Apresoline] 25 mg PO TID 09/23/13 12/02/17 History Levothyroxine Sodium [Synthroid] 25 mcg PO DAILY@0630 #30 tab 09/26/13 12/02/17 Rx Allopurinol [Zyloprim] 300 mg PO DAILY 12/20/15 12/02/17 History Losartan Potassium [Cozaar] 50 mg PO DAILY 12/20/15 12/02/17 History Metoprolol Tartrate [Lopressor] 100 mg PO BID 12/20/15 12/02/17 History Spironolactone [Aldactone] 25 mg PO DAILY 12/20/15 12/02/17 History Warfarin Sodium [Coumadin] 3 mg PO [id number] 12/20/15 12/02/17 History Albuterol Inhaler [Ventolin Hfa 1 - 2 puff INHALATION RT-Q6H PRN 12/21/15 Rx Inhaler] #1 inhaler Bumetanide [BUMEX] 1 mg PO HS 11/24/17 12/02/17 History Bumetanide [Bumex] 2 mg PO [id number] 11/24/17 12/02/17 History Insulin Glargine,Hum.rec.anlog 41 unit SQ HS 12/02/17 12/02/17 History [Basaglar Kwikpen U-100] Allergies Allergy/AdvReac Type Severity Reaction Status Date / Time sotalol Allergy Rapid Verified 12/02/17 19:11 Heart Rate ADHESIVE TAPE Allergy Itching Uncoded 12/02/17 14:00 Physical Exam Vitals: Vital Signs Temp Pulse Resp BP Pulse Ox 12/03/17 14:30 113 H 21 92 L 12/03/17 14:00 115 H 20 93 L 12/03/17 13:30 114 H 20 94 L 12/03/17 13:00 114 H 20 92 L 12/03/17 12:30 98 21 94 L 12/03/17 12:00 98 F 109 H 19 94 L 12/03/17 11:50 101 H 18 12/03/17 11:41 100 18 12/03/17 11:30 102 H 17 92 L 12/03/17 11:00 106 H 16 96 12/03/17 10:30 94 20 98 12/03/17 10:00 74 16 97 12/03/17 09:30 87 24 96 12/03/17 09:00 73 27 H 95 12/03/17 08:30 79 24 97 12/03/17 08:00 74 23 97 12/03/17 07:52 85 24 12/03/17 07:31 69 24 12/03/17 07:15 73 24 97 12/03/17 07:00 96 24 97 12/03/17 06:45 74 24 97 12/03/17 06:30 74 24 97 12/03/17 06:15 74 24 96 12/03/17 06:00 97.9 F 91 25 H 97 12/03/17 05:45 69 24 97 12/03/17 05:30 92 24 98 12/03/17 05:15 82 24 97 12/03/17 05:00 69 24 97 12/03/17 04:45 75 25 H 97 12/03/17 04:30 69 24 97 12/03/17 04:15 69 24 96 12/03/17 04:00 69 25 H 97 12/03/17 03:45 69 24 97 12/03/17 03:30 69 24 97 12/03/17 03:21 69 12/03/17 03:15 85 24 98 12/03/17 03:11 69 12/03/17 03:00 69 24 98 12/03/17 02:45 75 24 98 12/03/17 02:30 69 24 98 12/03/17 02:15 73 24 98 12/03/17 02:00 69 24 98 12/03/17 01:45 69 24 99 12/03/17 01:30 68 25 H 98 12/03/17 01:15 85 24 98 12/03/17 01:00 86 24 98 12/03/17 00:45 69 24 99 12/03/17 00:30 69 25 H 98 12/03/17 00:15 69 24 98 12/03/17 00:00 97.7 F 69 24 99 12/02/17 23:45 69 24 99 12/02/17 23:30 69 24 98 12/02/17 23:26 72 12/02/17 23:18 69 12/02/17 23:15 69 25 H 98 12/02/17 23:00 71 24 98 12/02/17 22:45 69 25 H 97 12/02/17 22:30 90 26 H 96 12/02/17 22:15 69 24 96 12/02/17 22:00 76 24 96 12/02/17 21:45 80 25 H 94 L 12/02/17 21:30 81 24 94 L 12/02/17 21:16 71 24 94 L 12/02/17 21:15 71 23 94 L 12/02/17 21:00 92 20 92 L 12/02/17 20:45 108 H 23 92 L 12/02/17 20:30 121 H 23 94 L 12/02/17 20:15 134 H 25 H 89 L 12/02/17 20:00 160 H 19 95 12/02/17 19:45 174 H 16 87 L 12/02/17 19:30 114 H 16 95 12/02/17 19:15 117 H 18 12/02/17 19:00 97.5 F L 133 H 16 93 L 12/02/17 18:40 136 H 16 178/77 91 L 12/02/17 18:33 95 Intake and Output 12/02/17 12/03/17 12/03/17 22:59 06:59 14:59 Intake Total 280 779.98 762.667 Output Total 265 820 620 Balance 15 -40.02 142.667 Intake: IV 280 480 480 Furosemide 250 mg In 30 80 80 Sodium Chloride 0.9% 225 ml @ 10 MG/HR 10 mls/hr IVP .Q24H [facility] Rx#: [id number] Lactated Ringers 1,000 ml 160 @ 20 mls/hr IV .Q24H [facility] Rx#:[id number] Sodium Chloride 0.9% 1, 200 400 240 000 ml @ 50 mls/hr IV . Q20H [facility] Rx#:[id number] Intake, IV Titration 299.98 282.667 Amount Amiodarone 450 mg In 199.98 Dextrose 5% in Water 250 ml @ 1 MG/MIN 33.33 mls/ hr IV .Q7H31M [facility] Rx#: [id number] Furosemide 250 mg In 182.667 Sodium Chloride 0.9% 225 ml @ 10 MG/HR 10 mls/hr IVP .Q24H [facility] Rx#: [id number] Propofol 1,000 mg In 100 100 Empty Bag 1 bag @ Titrate IV .Q0M [facility] Rx#: [id number] Output: Urine 265 820 620 Other: Voiding Method Indwelling Catheter Indwelling Catheter Indwelling Catheter Weight 130.181 kg ABP, PAP, CO, CI - Last 8 Hours Arterial Blood Pressure 101/52 Arterial Blood Pressure 120/54 Arterial Blood Pressure 131/45 Arterial Blood Pressure 109/48 Arterial Blood Pressure 102/51 Arterial Blood Pressure 118/51 Arterial Blood Pressure 115/51 Arterial Blood Pressure 124/55 Arterial Blood Pressure 121/48 Arterial Blood Pressure 101/40 Arterial Blood Pressure 99/44 Arterial Blood Pressure 98/43 Arterial Blood Pressure 106/48 Arterial Blood Pressure 126/51 Arterial Blood Pressure 129/58 Arterial Blood Pressure 124/54 - Constitutional General appearance: disheveled, mild distress, obese - EENT Eyes: EOMI, PERRLA, normal appearance ENT: hearing grossly normal Ears: bilateral: normal - Neck Neck: normal ROM Carotids: bilateral: upstroke normal Thyroid: bilateral: normal size - Respiratory Respiratory: bilateral: rhonchi, wheezing, prolonged expiration - Cardiovascular Heart sounds: normal: S1, S2 - Gastrointestinal General gastrointestinal: distended, normal bowel sounds, soft - Neurologic Neurologic: CNII-XII intact - Musculoskeletal Musculoskeletal: generalized weakness, strength equal bilaterally - Psychiatric Psychiatric: A&O x's 3, appropriate affect, intact judgment & insight Results CBC & Chem 7: 12/03/17 04:14 12/03/17 12:03 Labs: Abnormal Lab Results - Last 24 Hours (Table) 12/02/17 12/02/17 12/02/17 Range/Units 14:10 18:38 19:28 WBC (3.8-10.6) k/uL Hgb (11.4-16.0) gm/dL RDW (11.5-15.5) % PT 22.4 H (9.0-12.0) sec INR 2.5 H (<1.2) ABG pH 7.28 L (7.35-7.45) ABG pCO2 58 H (35-45) mmHg ABG pO2 (83-108) mmHg ABG HCO3 27 H (21-25) mmol/L ABG Total CO2 29 H (19-24) mmol/L Sodium (137-145) mmol/L BUN (7-17) mg/dL Creatinine (0.52-1.04) mg/dL Glucose (74-99) mg/dL POC Glucose (mg/dL) 208 H (75-99) mg/dL Hemoglobin A1c (4.0-6.0) % Total Protein (6.3-8.2) g/dL Albumin (3.5-5.0) g/dL 12/02/17 12/02/17 12/03/17 Range/Units 21:20 22:03 00:22 WBC (3.8-10.6) k/uL Hgb (11.4-16.0) gm/dL RDW (11.5-15.5) % PT (9.0-12.0) sec INR (<1.2) ABG pH 7.34 L (7.35-7.45) ABG pCO2 (35-45) mmHg ABG pO2 76 L (83-108) mmHg ABG HCO3 (21-25) mmol/L ABG Total CO2 25 H (19-24) mmol/L Sodium (137-145) mmol/L BUN (7-17) mg/dL Creatinine (0.52-1.04) mg/dL Glucose (74-99) mg/dL POC Glucose (mg/dL) 260 H 315 H (75-99) mg/dL Hemoglobin A1c (4.0-6.0) % Total Protein (6.3-8.2) g/dL Albumin (3.5-5.0) g/dL 12/03/17 12/03/17 12/03/17 Range/Units 04:14 04:14 04:14 WBC 20.3 H (3.8-10.6) k/uL Hgb 11.1 L (11.4-16.0) gm/dL RDW 16.0 H (11.5-15.5) % PT 24.1 H (9.0-12.0) sec INR 2.7 H (<1.2) ABG pH (7.35-7.45) ABG pCO2 (35-45) mmHg ABG pO2 (83-108) mmHg ABG HCO3 (21-25) mmol/L ABG Total CO2 (19-24) mmol/L Sodium (137-145) mmol/L BUN (7-17) mg/dL Creatinine (0.52-1.04) mg/dL Glucose (74-99) mg/dL POC Glucose (mg/dL) (75-99) mg/dL Hemoglobin A1c 6.7 H (4.0-6.0) % Total Protein (6.3-8.2) g/dL Albumin (3.5-5.0) g/dL 12/03/17 12/03/17 12/03/17 Range/Units 04:14 06:28 09:21 WBC (3.8-10.6) k/uL Hgb (11.4-16.0) gm/dL RDW (11.5-15.5) % PT (9.0-12.0) sec INR (<1.2) ABG pH (7.35-7.45) ABG pCO2 (35-45) mmHg ABG pO2 78 L (83-108) mmHg ABG HCO3 (21-25) mmol/L ABG Total CO2 25 H (19-24) mmol/L Sodium 135 L (137-145) mmol/L BUN 56 H (7-17) mg/dL Creatinine 1.90 H (0.52-1.04) mg/dL Glucose 259 H (74-99) mg/dL POC Glucose (mg/dL) 233 H (75-99) mg/dL Hemoglobin A1c (4.0-6.0) % Total Protein 5.7 L (6.3-8.2) g/dL Albumin 3.4 L (3.5-5.0) g/dL 12/03/17 Range/Units 12:13 WBC (3.8-10.6) k/uL Hgb (11.4-16.0) gm/dL RDW (11.5-15.5) % PT (9.0-12.0) sec INR (<1.2) ABG pH (7.35-7.45) ABG pCO2 (35-45) mmHg ABG pO2 (83-108) mmHg ABG HCO3 (21-25) mmol/L ABG Total CO2 (19-24) mmol/L Sodium (137-145) mmol/L BUN (7-17) mg/dL Creatinine (0.52-1.04) mg/dL Glucose (74-99) mg/dL POC Glucose (mg/dL) 170 H (75-99) mg/dL Hemoglobin A1c (4.0-6.0) % Total Protein (6.3-8.2) g/dL Albumin (3.5-5.0) g/dL Chest x-ray: report reviewed, image reviewed (12/02/2017 right hemithorax near- total Whiteout likely related to pulmonary edema was noted, ET tube in right mainstem bronchus, this morning x-ray showed significant improvement in the right lung with ET tube in stable position along with cardiomegaly) Assessment and Plan Assessment: Acute hypoxic respirator failure related to acute pulmonary edema Acute systolic heart failure Chronic systolic heart failure status post ICD change Severe degree of cardiomyopathy nonischemic in nature Acute renal failure with baseline his stage III chronic renal failure Plan: Monitor observe in ICU closely Bronchodilators, and short course of IV steroids can be tapered and DC in next 24-48 hours Gentle diuresis Amiodarone for arrhythmia Duration of home medication including antilipid agent Broad-spectrum antibiotics with IV cefazolin followed by IV Rocephin Anticoagulation as per planned Peptic ulcer disease prophylaxis Further recommendations pending plan of care as per clinical response of the patient Patient seen eval reexamined while covering for Dr. Adams Time with Patient: Greater than 30
[2017-12-03] MEDS: methylPREDNISolone SOD SUCCI 40 MG/ML 1 ML VIAL IV SCH (15:17)
[2017-12-03 17:18] LABS: Glucose,Whole Blood 96 mg/dL (75-99)
[2017-12-03] MEDS ORDERED: WARFARIN 3 MG TAB PO SCH (18:00)
[2017-12-03] MEDS ORDERED: Potassium Replacement Protocol 1 EACH MISC MISCELLANE PRN ×3 (18:44→23:12)
[2017-12-03] MEDS ORDERED: POTASSIUM CHLORIDE ER 20 MEQ TAB.ER PO ONE (19:00)
[2017-12-03] MEDS: BUDESONIDE 0.25 MG/2 ML NEBU INHALATION SCH (20:24)
[2017-12-03] MEDS: INSULIN DETEMIR 100 UNIT/ML 10 ML VIAL SQ SCH (21:19)
[2017-12-03] MEDS: ATORVASTATIN 20 MG TAB PO SCH (21:20)
[2017-12-03] MEDS: MONTELUKAST 10 MG TAB PO SCH (21:20)
[2017-12-03 21:21] LABS: Glucose,Whole Blood 161 mg/dL (75-99)
[2017-12-03] MEDS ORDERED: DEXTROSE 5% IN WATER 100 ML with AMIODARONE 150 MG IV ONE (21:57)
[2017-12-03] MEDS ORDERED: FUROSEMIDE 250 MG in SODIUM CHLORIDE 0.9% 225 ML IVP SCH (22:30)
[2017-12-03 22:54] LABS: Calcium 8.7 mg/dL (8.4-10.2); Magnesium 2.2 mg/dL (1.6-2.3); Phosphorus 3.1 mg/dL (2.5-4.5); Potassium 3.8 mmol/L (3.5-5.1)
[2017-12-04] MEDS: INSULIN ASPART 100 UNIT/ML 1 ML 10 ML VIAL SQ SCH ×5 (00:26→21:28)
[2017-12-04] MEDS: methylPREDNISolone SOD SUCCI 40 MG/ML 1 ML VIAL IV SCH ×4 (00:27→23:23)
[2017-12-04 00:28] LABS: Glucose,Whole Blood 194 mg/dL (75-99)
[2017-12-04 03:58] LABS: Anisocytosis Slight; HCT 32.4 % (34.0-46.0); HGB 10.6 gm/dL (11.4-16.0); MCH 27.3 pg (25.0-35.0); MCHC 32.7 g/dL (31.0-37.0); MCV 83.6 fL (80.0-100.0); Mean Platelet Volume 8.7; Platelet Count 187 k/uL (150-450); RBC 3.87 m/uL (3.80-5.40); RDW 16.2 % (11.5-15.5); WBC 14.2 k/uL (3.8-10.6)
[2017-12-04 04:06] LABS: INR 4.2 (<1.2)
[2017-12-04 04:09] LABS: Albumin 3.3 g/dL (3.5-5.0); Calcium 8.8 mg/dL (8.4-10.2); Magnesium 2.2 mg/dL (1.6-2.3); Phosphorus 3.5 mg/dL (2.5-4.5); Potassium 3.9 mmol/L (3.5-5.1); Total Bilirubin 0.3 mg/dL (0.2-1.3); Total Protein 5.6 g/dL (6.3-8.2)
[2017-12-04 05:36] LABS: Glucose,Whole Blood 170 mg/dL (75-99)
[2017-12-04] MEDS: AMIODARONE 450 MG in DEXTROSE 5% IN WATER 250 ML IV SCH ×8 (05:38→23:21)
[2017-12-04] MEDS: LACTATED RINGERS 1,000 ML IV SCH (06:17)
[2017-12-04] MEDS: LEVOTHYROXINE 25 MCG TAB PO SCH (06:18)
[2017-12-04] MEDS ORDERED: POTASSIUM CHLORIDE ER 20 MEQ TAB.ER PO STA (06:33)
[2017-12-04] MEDS: SPIRONOLACTONE 25 MG TAB PO SCH (07:07)
[2017-12-04] MEDS: IPRATROPIUM-ALBUTEROL 3 ML NEB INHALATION SCH ×4 (07:22→21:07)
[2017-12-04] MEDS: BUDESONIDE 0.25 MG/2 ML NEBU INHALATION SCH (07:22)
[2017-12-04] MEDS: cefTRIAXone IN SWFI 1,000 MG/10 ML SYRINGE IVP SCH (08:47)
[2017-12-04] MEDS ORDERED: METOPROLOL TARTRATE 25 MG TAB PO SCH (09:00)
[2017-12-04] MEDS ORDERED: SPIRONOLACTONE 25 MG TAB PO SCH (09:00)
--- NOTE | 2017-12-04 09:02 | XR ---
EXAMINATION TYPE: XR chest 1V portable DATE OF EXAM: 12/04/2017 CLINICAL HISTORY: Difficulty breathing and pulmonary edema progress study. TECHNIQUE: Single AP portable frontal view of the chest is obtained. COMPARISON: Chest x-ray from one day earlier and older studies. FINDINGS: There is interval extubation with removal of endotracheal and orogastric tubes. There is p ersistent cardiomegaly with multi lead pacemaker/AICD. There is background chronic emphysematous roman ge within improving right lung opacities. Improved aeration retrocardiac region with improved visuali zation of left hemidiaphragm is noted. No large pleural effusion or pneumothorax is seen bilaterally. Osseous structures remain demineralized. IMPRESSION: Interval extubation. Cardiomegaly and chronic emphysematous change with improving bilater al edema and/or infiltrates.
[2017-12-04] MEDS ORDERED: PHYTONADIONE ORAL 5 MG/5 ML ORAL.SYRG PO STA (10:11)
[2017-12-04] MEDS: WARFARIN 3 MG TAB PO SCH (10:20)
[2017-12-04] MEDS: BUMETANIDE 1 MG TAB PO SCH ×2 (10:39→16:45)
--- NOTE | 2017-12-04 12:17 | PN ---
PROGRESS NOTE Mrs. Gee is a 66-year-old female who underwent a pacemaker generator change and subsequently patient went into acute pulmonary edema. Patient has a nonischemic cardiomyopathy with severely impaired left ventricular systolic function. Patient's condition has improved. She is off the Levophed and she is extubated. She is feeling comfortable, lying in the bed without any . Yesterday patient had several episodes of wide QRS complex tachycardia. The patient's blood pressure is 133/59 mmHg. Heart rate is 100 per minute. First and second heart sounds are normal. Lungs are clinically clear to auscultation and percussion. Patient's potassium is 3.9, creatinine is 1.88. INR is 4.2. Chest x-ray shows improvement in the congestive cardiac failure. ASSESSMENT AND PLAN: Congestive heart failure is improving. We will discontinue the IV Lasix and start the patient on Bumex 2 mg p.o. b.i.d. Patient will be given 1 dose of vitamin K 5 mg p.o. If the INR improves, the arterial line and venous line will be removed. The patient is currently taking Lopressor 25 mg b.i.d. If the blood pressure remains stable, we will increase the dose of Lopressor from tomorrow. MMODL / IJN: [id number] /
[2017-12-04 12:31] LABS: Glucose,Whole Blood 203 mg/dL (75-99)
--- NOTE | 2017-12-04 14:05 | P.PN ---
Subjective Progress Note Date: 12/04/17 This is a 66-year-old female, known history of severe cardiomyopathy, previous biventricular ICD placement. Patient has chronic severe congestive heart failure class III, patient was brought in yesterday by cardiology/Dr. Chavez for ICD generator change. While in the EP lab, left shoulder incision was made , partial capsulectomy was performed, device was removed, and a new device was connected. As the new device was being connected, patient started complaining of shortness of breath and difficulty breathing. Clinically the patient went into flash pulmonary edema with acute respiratory failure requiring intubation and mechanical ventilation. Patient was admitted to the intensive care unit On 12/04/2017 patient was extubated yesterday. Patient states she is feeling much improved. Patient is currently off the Levophed. Patient remains on amiodarone and Lasix drip. Patient denies chest pain or shortness breath at this time. Patient is being followed cardiology and Dr. Armenta. Objective - Vital Signs Vital signs: Vital Signs Temp 97.9 F 12/04/17 08:00 Pulse 103 H 12/04/17 11:17 Resp 19 12/04/17 11:00 BP 178/77 12/02/17 18:40 Pulse Ox 94 L 12/04/17 11:00 Intake & Output 12/03/17 12/04/17 12/04/17 18:59 06:59 18:59 Intake Total 1172.667 870.512 298.2 Output Total 1045 1990 600 Balance 127.667 -1119.488 -301.8 Weight 130.1 kg 127.006 kg Intake: IV 640 435 298.2 Amiodarone 450 mg In 133.2 Dextrose 5% in Water 250 ml @ 1 MG/MIN 33.33 mls/ hr IV .Q7H31M [facility] Rx#: [id number] Furosemide 250 mg In 120 75 15 Sodium Chloride 0.9% 225 ml @ 5 MG/HR 5 mls/hr IVP .Q24H [facility] Rx#:[id number] Lactated Ringers 1,000 ml 240 240 100 @ 20 mls/hr IV .Q24H [facility] Rx#:[id number] Sodium Chloride 0.9% 1, 280 120 50 000 ml @ 50 mls/hr IV . Q20H [facility] Rx#:[id number] Intake, IV Titration 532.667 435.512 Amount Amiodarone 450 mg In 250 198.869 Dextrose 5% in Water 250 ml @ 1 MG/MIN 33.33 mls/ hr IV .Q7H31M [facility] Rx#: [id number] Amiodarone 450 mg In 236.643 Dextrose 5% in Water 250 ml @ 1 MG/MIN 33.33 mls/ hr IV .Q7H31M [facility] Rx#: [id number] Furosemide 250 mg In 182.667 Sodium Chloride 0.9% 225 ml @ 5 MG/HR 5 mls/hr IVP .Q24H [facility] Rx#:[id number] Propofol 1,000 mg In 100 Empty Bag 1 bag @ Titrate IV .Q0M [facility] Rx#: [id number] Output: Urine 1045 1990 600 Other: Voiding Method Indwelling Catheter Indwelling Catheter Indwelling Catheter ABP, PAP, CO, CI - Last Documented Arterial Blood Pressure 133/59 - Exam Head normocephalic Neck supple Lungs bilateral wheezing Heart regular rate and rhythm S1-S2, no rub or gallop Abdomen is soft nontender nondistended positive bowel sounds no hepatosplenomegaly Extremities no edema Neuro alert and orientated to 3 - Labs CBC & Chem 7: 12/04/17 03:50 12/04/17 03:50 Labs: Abnormal Lab Results - Last 24 Hours (Table) 12/03/17 12/03/17 12/03/17 Range/Units 04:14 12:13 21:18 WBC (3.8-10.6) k/uL Hgb (11.4-16.0) gm/dL Hct (34.0-46.0) % RDW (11.5-15.5) % PT (9.0-12.0) sec INR (<1.2) BUN (7-17) mg/dL Creatinine (0.52-1.04) mg/dL Glucose (74-99) mg/dL POC Glucose (mg/dL) 170 H 161 H (75-99) mg/dL Hemoglobin A1c 6.7 H (4.0-6.0) % Total Protein (6.3-8.2) g/dL Albumin (3.5-5.0) g/dL 12/03/17 12/04/17 12/04/17 Range/Units 22:10 00:05 03:50 WBC (3.8-10.6) k/uL Hgb (11.4-16.0) gm/dL Hct (34.0-46.0) % RDW (11.5-15.5) % PT 38.0 H (9.0-12.0) sec INR 4.2 H (<1.2) BUN 52 H (7-17) mg/dL Creatinine 1.94 H (0.52-1.04) mg/dL Glucose 162 H (74-99) mg/dL POC Glucose (mg/dL) 194 H (75-99) mg/dL Hemoglobin A1c (4.0-6.0) % Total Protein (6.3-8.2) g/dL Albumin (3.5-5.0) g/dL 12/04/17 12/04/17 12/04/17 Range/Units 03:50 03:50 05:32 WBC 14.2 H (3.8-10.6) k/uL Hgb 10.6 L (11.4-16.0) gm/dL Hct 32.4 L (34.0-46.0) % RDW 16.2 H (11.5-15.5) % PT (9.0-12.0) sec INR (<1.2) BUN 52 H (7-17) mg/dL Creatinine 1.88 H (0.52-1.04) mg/dL Glucose 167 H (74-99) mg/dL POC Glucose (mg/dL) 170 H (75-99) mg/dL Hemoglobin A1c (4.0-6.0) % Total Protein 5.6 L (6.3-8.2) g/dL Albumin 3.3 L (3.5-5.0) g/dL Assessment and Plan Assessment: 1 acute hypoxic respiratory failure requiring intubation and mechanical ventilation secondary to flash pulmonary edema secondary to severe cardiomyopathy and LV dysfunction. Patient has been extubated. Patient remains on Solu-Medrol, DuoNeb and pulmicort. Chest x-ray completed this morning showing interval extubation. Cardiomegaly and chronic emphysematous changes. Dr. Armenta for pulmonary services are following 2 status post ICD generator change, postoperative day #2. 3 intermittent ventricular ectopy, being addressed by cardiology on the case. Patient remains on amiodarone. [facility] services are following 4 hypotension secondary to severe cardiomyopathy and LV dysfunction. patient currently off the Levophed drip 5 nonischemic cardiomyopathy and LV dysfunction 6 type 2 diabetes. Continue home Levemir dose of 41 units and sliding scale insulin. 7 hypothyroidism maintained on Synthroid 8 acute on chronic kidney failure with history of stage III chronic kidney disease 9 suspect some component of acute kidney injury and acute tubular necrosis. Secondary to hypotension. 10. Leukocytosis. White blood cell elevated at 20.3. Improved to 14.2. Patient remains on Rocephin for antibiotics. GI prophylaxis Pepcid. DVT Prophylaxis his Coumadin I performed an examination of the patient and discussed their management with the Nurse Practitioner. I have reviewed the Nurse Practitioner's notes and agree with the documented findings and plan of care
--- NOTE | 2017-12-04 14:32 | P.PN ---
Subjective Progress Note Date: 12/04/17 This is a 66-year-old female, known history of severe cardiomyopathy, previous biventricular ICD placement. Patient has chronic severe congestive heart failure class III, patient was brought in yesterday by cardiology/Dr. Chavez for ICD generator change. While in the EP lab, left shoulder incision was made , partial capsulectomy was performed, device was removed, and a new device was connected. As the new device was being connected, patient started complaining of shortness of breath and difficulty breathing. Clinically the patient went into flash pulmonary edema with acute respiratory failure requiring intubation and mechanical ventilation. Patient was admitted to the intensive care unit and I was asked to see her on consultation. Overnight, the patient required pressors, she also required Lasix drip. I reviewed the chest x-ray shortly after the patient was intubated, and she was clearly in pulmonary edema. When I saw the patient this morning, her chest x-ray showed dramatic improvement, however she was still on 9 g of levo fed. Patient was also on the following vent settings assist control rate of 24 tidal volume of 400 FiO2 of 50% and PEEP of 5. ABG this morning showed a pO2 of 7 pCO2 of 36 and pH of 7.44. Labs , medications, ABG, were all reviewed chest x-ray was also reviewed. Patient was already on propofol which I have discontinued, awaken the patient, and she was very appropriate and followed all instructions properly. Then I proceeded to a short trial of weaning utilizing pressure support of 8 and CPAP. Patient did well for about half an hour while I was at bedside. Then I proceeded to extubating the patient. In the meantime I kept the patient on her Lasix drip, and she is back on her usual cardiac meds. Norepinephrine will be titrated down and hopefully discontinued soon. Patient had an excellent urine output, and her labs were basically unremarkable. She was noted however to have some ventricular ectopy on levo fed, and she was on amiodarone overnight. On today's evaluation of 12/04/2017, I'm seeing this patient for a follow-up. The patient day intensive care unit. The patient has been extubated. Chest x- ray shows improvement in the volume status. Currently the patient on Bumex 2 mg by mouth twice a day. The patient is a negative fluid balance. The patient is improving. The patient is currently on an amiodarone drip as the patient has developed episodes of nonsustained V. tach. These episodes are ranging between 2-3 beats up to 15 beats. The underlying rhythm is atrial fibrillation with a controlled rate. She is also on metoprolol 25 mg by mouth twice a day. She is on warfarin for long-term anticoagulation and the patient's INR is slightly supratherapeutic at 4.2. She has chronic renal failure creatinine is stable at 1.8. The patient has severe nonischemic cardiomyopathy with an ejection fraction of less than 20%. She underwent a recent AICD generator change and her postoperative course was complicated by flash pulmonary edema. Patient was briefly on the mechanical ventilator from which she was weaned off after her volume status was optimized. No cough. No sputum production. No altered mentation. No 70 chronic hypoxic respiratory failure. No history of obstructive sleep apnea. She is morbidly obese. Her current BMI 54.7. Objective - Vital Signs Vital signs: Vital Signs Temp 98.3 F 12/04/17 12:00 Pulse 114 H 12/04/17 14:00 Resp 24 12/04/17 14:00 BP 178/77 12/02/17 18:40 Pulse Ox 92 L 12/04/17 14:00 Intake & Output 12/03/17 12/04/17 12/04/17 18:59 06:59 18:59 Intake Total 1172.667 870.512 468.1 Output Total 1045 1990 925 Balance 127.667 -1119.488 -456.9 Weight 130.1 kg 127.006 kg Intake: IV 640 435 468.1 Amiodarone 450 mg In 233.1 Dextrose 5% in Water 250 ml @ 1 MG/MIN 33.33 mls/ hr IV .Q7H31M [facility] Rx#: [id number] Furosemide 250 mg In 120 75 15 Sodium Chloride 0.9% 225 ml @ 5 MG/HR 5 mls/hr IVP .Q24H [facility] Rx#:[id number] Lactated Ringers 1,000 ml 240 240 160 @ 20 mls/hr IV .Q24H [facility] Rx#:[id number] Sodium Chloride 0.9% 1, 280 120 60 000 ml @ 50 mls/hr IV . Q20H [facility] Rx#:[id number] Intake, IV Titration 532.667 435.512 Amount Amiodarone 450 mg In 250 198.869 Dextrose 5% in Water 250 ml @ 1 MG/MIN 33.33 mls/ hr IV .Q7H31M [facility] Rx#: [id number] Amiodarone 450 mg In 236.643 Dextrose 5% in Water 250 ml @ 1 MG/MIN 33.33 mls/ hr IV .Q7H31M [facility] Rx#: [id number] Furosemide 250 mg In 182.667 Sodium Chloride 0.9% 225 ml @ 5 MG/HR 5 mls/hr IVP .Q24H [facility] Rx#:[id number] Propofol 1,000 mg In 100 Empty Bag 1 bag @ Titrate IV .Q0M [facility] Rx#: [id number] Output: Urine 1045 1990 925 Other: Voiding Method Indwelling Catheter Indwelling Catheter Indwelling Catheter ABP, PAP, CO, CI - Last Documented Arterial Blood Pressure 124/49 - Exam Physical Exam: Revealed a 66-year-old female obese, on mechanical ventilation, in no distress. Awake and alert and answering questions and following commands without any major difficulties. The patient is comfortable and nonlabored breathing. Head: Atraumatic, normocephalic.Head exam was generally normal. There was no scleral icterus or corneal arcus. Mucous membranes were moist. HEENT:Neck was supple and without jugular venous distension, thyromegaly, or carotid bruits. Carotids were easily palpable bilaterally. There was no adenopathy. The patient is a Mallampati class IV was significant crowding of the posterior oropharynx Chest: Few crackles in lung bases bilaterally. Overall breath sounds are diminished. She had minimal wheezes / rhonchi at this point in time she has Cardiac Exam: [Irregular rhythm Normal S1 and S2, no S3 gallop, 2/6 systolic murmur thought the precordium. Abdomen: [Obese, Soft, nontender, no megaly, no rebound, no guarding, normal bowel sounds.] Extremities: The patient has +1 pitting edema lower extremities bilaterally. No cyanosis. No clubbing. Good pulses bilaterally upper and lower extremities. Neurological Exam: [No focal neurologic deficit. Patient on mechanical ventilation, however able to follow all instructions when the propofol was weaned down. Lymphatics: No Lymphadenopathy. Psychiatric: Normal mood affect and mental status examination.] Neurologically the patient is awake and alert and is no focal neurological deficits. Examination of the skin revealed no evidence of significant rashes, suspicious appearing nevi or other concerning lesions. - Labs CBC & Chem 7: 12/04/17 03:50 12/04/17 03:50 Labs: Abnormal Lab Results - Last 24 Hours (Table) 12/03/17 12/03/17 12/04/17 Range/Units 21:18 22:10 00:05 WBC (3.8-10.6) k/uL Hgb (11.4-16.0) gm/dL Hct (34.0-46.0) % RDW (11.5-15.5) % PT (9.0-12.0) sec INR (<1.2) BUN 52 H (7-17) mg/dL Creatinine 1.94 H (0.52-1.04) mg/dL Glucose 162 H (74-99) mg/dL POC Glucose (mg/dL) 161 H 194 H (75-99) mg/dL Total Protein (6.3-8.2) g/dL Albumin (3.5-5.0) g/dL 12/04/17 12/04/17 12/04/17 Range/Units 03:50 03:50 03:50 WBC 14.2 H (3.8-10.6) k/uL Hgb 10.6 L (11.4-16.0) gm/dL Hct 32.4 L (34.0-46.0) % RDW 16.2 H (11.5-15.5) % PT 38.0 H (9.0-12.0) sec INR 4.2 H (<1.2) BUN 52 H (7-17) mg/dL Creatinine 1.88 H (0.52-1.04) mg/dL Glucose 167 H (74-99) mg/dL POC Glucose (mg/dL) (75-99) mg/dL Total Protein 5.6 L (6.3-8.2) g/dL Albumin 3.3 L (3.5-5.0) g/dL 12/04/17 12/04/17 Range/Units 05:32 12:30 WBC (3.8-10.6) k/uL Hgb (11.4-16.0) gm/dL Hct (34.0-46.0) % RDW (11.5-15.5) % PT (9.0-12.0) sec INR (<1.2) BUN (7-17) mg/dL Creatinine (0.52-1.04) mg/dL Glucose (74-99) mg/dL POC Glucose (mg/dL) 170 H 203 H (75-99) mg/dL Total Protein (6.3-8.2) g/dL Albumin (3.5-5.0) g/dL Assessment and Plan Plan: Impression: 1 acute hypoxic respiratory failure requiring intubation and mechanical ventilation secondary to flash pulmonary edema secondary to severe cardiomyopathy and LV dysfunction. The patient was diuresed and her volume status improved and subsequent chest x-ray showed improvement in the pulmonary edema. The patient was weaned off the mechanical ventilator and extubated blood any major difficulties. Currently reading spontaneously on few liters of oxygen by nasal cannula. No other significant events overnight. 2 status post ICD generator change, postoperative day #2 3 intermittent episodes of nonsustained V. tach up to 15 beats. Currently on amiodarone IV loading. She is also on metoprolol. Electrodes are being managed including hypomagnesemia and hypokalemia. 4 hypotension secondary to severe cardiomyopathy and LV dysfunction, recovered and currently on no pressors 5 nonischemic cardiomyopathy and LV dysfunction, with an ejection fraction of less than 20% 6 type 2 diabetes 7 hypothyroidism maintained on Synthroid 8 acute on chronic kidney failure with history of stage III chronic kidney disease, creatinine stable at 1.8 for now 9 obesity with a BMI 54.7 10 long-term antibiotic ventilation with warfarin was slightly supratherapeutic INR Plan I'm going to continue the diuretics with Bumex. Replace potassium and magnesium levels. Continue amiodarone loading. Continue beta blockers. Monitor the cardiac rhythm and one concern is that recurrent episodes of nonsustained V. tach but patient is having. He is a very short runs. The AICD has been replaced and exchanged. The patient is postop day #2. Volume status improved with diuretics. We'll continue to follow. The patient be staying in ICU for now. No Coumadin for today. Monitor hemodynamics. We'll follow.
[2017-12-04] MEDS ORDERED: POTASSIUM CHLORIDE ER 20 MEQ TAB.ER PO ONE (16:00)
[2017-12-04 17:23] LABS: Glucose,Whole Blood 209 mg/dL (75-99)
[2017-12-04] MEDS: BUDESONIDE 1 MG/2 ML NEBU INHALATION SCH (21:07)
[2017-12-04] MEDS: MONTELUKAST 10 MG TAB PO SCH (21:28)
[2017-12-04] MEDS: INSULIN DETEMIR 100 UNIT/ML 10 ML VIAL SQ SCH (21:28)
[2017-12-04] MEDS: ATORVASTATIN 20 MG TAB PO SCH (21:28)
[2017-12-04] MEDS: METOPROLOL TARTRATE 50 MG TAB PO SCH (21:28)
[2017-12-04 21:30] LABS: Glucose,Whole Blood 228 mg/dL (75-99)
[2017-12-04] MEDS ORDERED: POTASSIUM CHLORIDE ER 20 MEQ TAB.ER PO SCH (23:11)
[2017-12-05 04:54] LABS: Anisocytosis Slight; HCT 33.1 % (34.0-46.0); HGB 10.5 gm/dL (11.4-16.0); MCHC 31.9 g/dL (31.0-37.0); MCV 84.8 fL (80.0-100.0); Mean Platelet Volume 8.7; Platelet Count 202 k/uL (150-450); RDW 16.3 % (11.5-15.5); WBC 19.7 k/uL (3.8-10.6)
[2017-12-05 04:56] LABS: INR 2.2 (<1.2)
[2017-12-05 05:04] LABS: Albumin 3.3 g/dL (3.5-5.0); Calcium 9.5 mg/dL (8.4-10.2); Magnesium 2.3 mg/dL (1.6-2.3); Phosphorus 3.4 mg/dL (2.5-4.5); Total Bilirubin 0.3 mg/dL (0.2-1.3); Total Protein 5.7 g/dL (6.3-8.2)
[2017-12-05] MEDS: IPRATROPIUM-ALBUTEROL 3 ML NEB INHALATION SCH ×4 (07:24→19:56)
[2017-12-05] MEDS: BUDESONIDE 1 MG/2 ML NEBU INHALATION SCH ×2 (07:24→19:56)
[2017-12-05 07:29] LABS: Glucose,Whole Blood 191 mg/dL (75-99)
[2017-12-05] MEDS: LEVOTHYROXINE 25 MCG TAB PO SCH (08:06)
[2017-12-05] MEDS: INSULIN ASPART 100 UNIT/ML 1 ML 10 ML VIAL SQ SCH ×4 (08:06→21:44)
[2017-12-05] MEDS: methylPREDNISolone SOD SUCCI 40 MG/ML 1 ML VIAL IV SCH ×3 (08:18→16:51)
--- NOTE | 2017-12-05 08:49 | P.PN ---
Subjective Progress Note Date: 12/05/17 Principal diagnosis: Acute hypoxic respiratory failure secondary to flash pulmonary edema. This is a 66-year-old female, known history of severe cardiomyopathy, previous biventricular ICD placement. Patient has chronic severe congestive heart failure class III, patient was brought in yesterday by cardiology/Dr. Chavez for ICD generator change. While in the EP lab, left shoulder incision was made , partial capsulectomy was performed, device was removed, and a new device was connected. As the new device was being connected, patient started complaining of shortness of breath and difficulty breathing. Clinically the patient went into flash pulmonary edema with acute respiratory failure requiring intubation and mechanical ventilation. Patient was admitted to the intensive care unit and I was asked to see her on consultation. Overnight, the patient required pressors, she also required Lasix drip. I reviewed the chest x-ray shortly after the patient was intubated, and she was clearly in pulmonary edema. When I saw the patient this morning, her chest x-ray showed dramatic improvement, however she was still on 9 g of levo fed. Patient was also on the following vent settings assist control rate of 24 tidal volume of 400 FiO2 of 50% and PEEP of 5. ABG this morning showed a pO2 of 7 pCO2 of 36 and pH of 7.44. Labs , medications, ABG, were all reviewed chest x-ray was also reviewed. Patient was already on propofol which I have discontinued, awaken the patient, and she was very appropriate and followed all instructions properly. Then I proceeded to a short trial of weaning utilizing pressure support of 8 and CPAP. Patient did well for about half an hour while I was at bedside. Then I proceeded to extubating the patient. In the meantime I kept the patient on her Lasix drip, and she is back on her usual cardiac meds. Norepinephrine will be titrated down and hopefully discontinued soon. Patient had an excellent urine output, and her labs were basically unremarkable. She was noted however to have some ventricular ectopy on levo fed, and she was on amiodarone overnight. On today's evaluation of 12/04/2017, I'm seeing this patient for a follow-up. The patient day intensive care unit. The patient has been extubated. Chest x- ray shows improvement in the volume status. Currently the patient on Bumex 2 mg by mouth twice a day. The patient is a negative fluid balance. The patient is improving. The patient is currently on an amiodarone drip as the patient has developed episodes of nonsustained V. tach. These episodes are ranging between 2-3 beats up to 15 beats. The underlying rhythm is atrial fibrillation with a controlled rate. She is also on metoprolol 25 mg by mouth twice a day. She is on warfarin for long-term anticoagulation and the patient's INR is slightly supratherapeutic at 4.2. She has chronic renal failure creatinine is stable at 1.8. The patient has severe nonischemic cardiomyopathy with an ejection fraction of less than 20%. She underwent a recent AICD generator change and her postoperative course was complicated by flash pulmonary edema. Patient was briefly on the mechanical ventilator from which she was weaned off after her volume status was optimized. No cough. No sputum production. No altered mentation. No 70 chronic hypoxic respiratory failure. No history of obstructive sleep apnea. She is morbidly obese. Her current BMI 54.7. The patient is seen today on 12/05/2017 in follow-up in the intensive care unit. She is awake and alert in no acute distress. She denies any worsening shortness of breath, cough or congestion. She is breathing easier today as compared to yesterday. Less wheezing. She is maintaining good O2 saturations in the mid 90s on 2 L/m per nasal cannula. She's been afebrile. White count 19.7. Hemoglobin 10.5. INR 2.2. Creatinine 1.90. She remains on empiric antibiotics in the form of ceftriaxone. She is continued on amiodarone drip per cardiology. Objective - Vital Signs Vital signs: Vital Signs Temp 98 F 12/05/17 08:00 Pulse 102 H 12/05/17 08:00 Resp 18 12/05/17 08:00 BP 178/77 12/02/17 18:40 Pulse Ox 95 12/05/17 08:00 Intake & Output 12/04/17 12/05/17 12/05/17 18:59 06:59 18:59 Intake Total 931.3 452.726 50 Output Total 1175 785 160 Balance -243.7 -332.274 -110 Weight 127.006 kg 127.3 kg Intake: IV 681.3 273.3 50 Amiodarone 450 mg In 366.3 33.3 Dextrose 5% in Water 250 ml @ 1 MG/MIN 33.33 mls/ hr IV .Q7H31M [facility] Rx#: [id number] Furosemide 250 mg In 15 Sodium Chloride 0.9% 225 ml @ 5 MG/HR 5 mls/hr IVP .Q24H [facility] Rx#:[id number] Lactated Ringers 1,000 ml 240 240 50 @ 20 mls/hr IV .Q24H [facility] Rx#:[id number] Sodium Chloride 0.9% 1, 60 000 ml @ 50 mls/hr IV . Q20H [facility] Rx#:[id number] Intake, IV Titration 250 179.426 Amount Amiodarone 450 mg In 250 179.426 Dextrose 5% in Water 250 ml @ 1 MG/MIN 33.33 mls/ hr IV .Q7H31M [facility] Rx#: [id number] Output: Urine 1175 785 160 Other: Voiding Method Indwelling Catheter Indwelling Catheter ABP, PAP, CO, CI - Last Documented Arterial Blood Pressure 140/70 - Exam Physical Exam: Revealed a 66-year-old female obese, on mechanical ventilation, in no distress. Awake and alert and answering questions and following commands without any major difficulties. The patient is comfortable and nonlabored breathing. Head: Atraumatic, normocephalic.Head exam was generally normal. There was no scleral icterus or corneal arcus. Mucous membranes were moist. HEENT:Neck was supple and without jugular venous distension, thyromegaly, or carotid bruits. Carotids were easily palpable bilaterally. There was no adenopathy. The patient is a Mallampati class IV was significant crowding of the posterior oropharynx Chest: Few crackles in lung bases bilaterally. Overall breath sounds are diminished. She had minimal wheezes / rhonchi at this point in time she has Cardiac Exam: [Irregular rhythm Normal S1 and S2, no S3 gallop, 2/6 systolic murmur thought the precordium. Abdomen: [Obese, Soft, nontender, no megaly, no rebound, no guarding, normal bowel sounds.] Extremities: The patient has +1 pitting edema lower extremities bilaterally. No cyanosis. No clubbing. Good pulses bilaterally upper and lower extremities. Neurological Exam: [No focal neurologic deficit. Patient on mechanical ventilation, however able to follow all instructions when the propofol was weaned down. Lymphatics: No Lymphadenopathy. Psychiatric: Normal mood affect and mental status examination.] Neurologically the patient is awake and alert and is no focal neurological deficits. Examination of the skin revealed no evidence of significant rashes, suspicious appearing nevi or other concerning lesions. - Labs CBC & Chem 7: 12/05/17 04:35 12/05/17 04:35 Labs: Abnormal Lab Results - Last 24 Hours (Table) 12/04/17 12/04/17 12/04/17 Range/Units 12:30 17:20 21:24 WBC (3.8-10.6) k/uL Hgb (11.4-16.0) gm/dL Hct (34.0-46.0) % RDW (11.5-15.5) % PT (9.0-12.0) sec INR (<1.2) BUN (7-17) mg/dL Creatinine (0.52-1.04) mg/dL Glucose (74-99) mg/dL POC Glucose (mg/dL) 203 H 209 H 228 H (75-99) mg/dL Total Protein (6.3-8.2) g/dL Albumin (3.5-5.0) g/dL 12/05/17 12/05/17 12/05/17 Range/Units 04:35 04:35 04:35 WBC 19.7 H (3.8-10.6) k/uL Hgb 10.5 L (11.4-16.0) gm/dL Hct 33.1 L (34.0-46.0) % RDW 16.3 H (11.5-15.5) % PT 20.0 H (9.0-12.0) sec INR 2.2 H (<1.2) BUN 59 H (7-17) mg/dL Creatinine 1.90 H (0.52-1.04) mg/dL Glucose 181 H (74-99) mg/dL POC Glucose (mg/dL) (75-99) mg/dL Total Protein 5.7 L (6.3-8.2) g/dL Albumin 3.3 L (3.5-5.0) g/dL 12/05/17 Range/Units 07:27 WBC (3.8-10.6) k/uL Hgb (11.4-16.0) gm/dL Hct (34.0-46.0) % RDW (11.5-15.5) % PT (9.0-12.0) sec INR (<1.2) BUN (7-17) mg/dL Creatinine (0.52-1.04) mg/dL Glucose (74-99) mg/dL POC Glucose (mg/dL) 191 H (75-99) mg/dL Total Protein (6.3-8.2) g/dL Albumin (3.5-5.0) g/dL Assessment and Plan Assessment: Impression: 1 acute hypoxic respiratory failure requiring intubation and mechanical ventilation secondary to flash pulmonary edema secondary to severe cardiomyopathy and LV dysfunction. The patient was diuresed and her volume status improved and subsequent chest x-ray showed improvement in the pulmonary edema. The patient was weaned off the mechanical ventilator and extubated blood any major difficulties. Currently reading spontaneously on few liters of oxygen by nasal cannula. No other significant events overnight. 2 status post ICD generator change, postoperative day #3 3 intermittent episodes of nonsustained V. tach up to 15 beats. Currently on amiodarone IV loading. She is also on metoprolol. Electrodes are being managed including hypomagnesemia and hypokalemia. 4 hypotension secondary to severe cardiomyopathy and LV dysfunction, recovered and currently on no pressors 5 nonischemic cardiomyopathy and LV dysfunction, with an ejection fraction of less than 20% 6 type 2 diabetes 7 hypothyroidism maintained on Synthroid 8 acute on chronic kidney failure with history of stage III chronic kidney disease, creatinine stable at 1.9 for now 9 obesity with a BMI 54.7 10 long-term antibiotic ventilation with warfarin was slightly supratherapeutic INR Plan The patient was seen and evaluated by Dr. Martinez. She is improved today from the pulmonary standpoint. We'll discontinue IV Solu-Medrol and start a prednisone burst and taper. Back off on the bronchodilators to avoid tachyarrhythmias. She remains on amiodarone at 1 mg/m. Less ventricular ectopy today. Continues on ceftriaxone. INR is 2.2. Right groin sheath remains in place. We'll continue to follow and make further recommendations based on her clinical status.
[2017-12-05] MEDS: METOPROLOL TARTRATE 50 MG TAB PO SCH ×2 (09:50→10:12)
[2017-12-05] MEDS: BUMETANIDE 1 MG TAB PO SCH ×2 (10:00→16:51)
[2017-12-05] MEDS: AMIODARONE 450 MG in DEXTROSE 5% IN WATER 250 ML IV SCH ×4 (10:01→17:08)
[2017-12-05] MEDS: FAMOTIDINE 20 MG TAB PO SCH (10:02)
[2017-12-05] MEDS ORDERED: ATROPINE SULFATE 0.1 MG/ML 10ML SYRINGE ONE (10:16)
[2017-12-05] MEDS: SPIRONOLACTONE 25 MG TAB PO SCH (10:16)
[2017-12-05] MEDS ORDERED: FUROSEMIDE 10 MG/ML 4 ML VIAL ONE (11:14)
[2017-12-05] MEDS ORDERED: MORPHINE SULFATE 2 MG/ML SYRINGE ONE ×2 (11:18→11:31)
[2017-12-05] MEDS ORDERED: NITROGLYCERIN SL TABS 0.4 MG TAB SUBLINGUAL ONE (11:21)
[2017-12-05] MEDS ORDERED: NITROGLYCERIN OINT 1 INCH/GM PACKET TOPICAL ONE (11:21)
[2017-12-05] MEDS ORDERED: NITROGLYCERIN OINT 1 INCH/GM PACKET TOPICAL STA (11:24)
[2017-12-05] MEDS ORDERED: NITROGLYCERIN SL TABS 0.4 MG TAB SUBLINGUAL STA (11:25)
[2017-12-05] MEDS: cefTRIAXone IN SWFI 1,000 MG/10 ML SYRINGE IVP SCH (11:30)
--- NOTE | 2017-12-05 12:00 | XR ---
EXAMINATION TYPE: XR chest 1V DATE OF EXAM: 12/05/2017 COMPARISON: Prior chest 12/04/2017 HISTORY: Shortness of breath TECHNIQUE: Single frontal view of the chest is obtained. FINDINGS: There has been interval development of airspace disease predominantly within the right hem ithorax. Difficult to exclude retrocardiac density. Intracardiac defibrillator leads are again noted. No evident pneumothorax or pleural effusion. Heart remains enlarged. Generator in the left pectoral region, there are multiple surgical dorcas at this level. There are overlying cardiac leads. IMPRESSION: Findings could represent pulmonary edema, atypical presentation of congestive heart fail ure, correlate for pneumonia, follow-up recommended.
--- NOTE | 2017-12-05 12:15 | PN ---
PROGRESS NOTE DATE OF SERVICE: 12/05/2017. HISTORY: The patient is recovering from pulmonary edema. The patient is doing better. She is comfortable. The patient continues to have intermittent wide QRS complex rhythm. Blood pressure is 140/70 mmHg. Heart S1 and S2. Her lungs are clear to auscultation and percussion. The patient's urine output remains fairly good. PLAN: We will continue the current medications artery with baseline would be discontinued. INR is 2.2. We will switch her to p.o. Lasix amiodarone 200 mg t.i.d. and increase the Lopressor to 75 mg b.i.d. Once the patient's renal functions are stable and the blood pressure remains stable, we will try the patient on . FRANK / HOLGERN: [id number] /
--- NOTE | 2017-12-05 12:19 | P.PN ---
Subjective Progress Note Date: 12/05/17 This is a 66-year-old female, known history of severe cardiomyopathy, previous biventricular ICD placement. Patient has chronic severe congestive heart failure class III, patient was brought in yesterday by cardiology/Dr. Chavez for ICD generator change. While in the EP lab, left shoulder incision was made , partial capsulectomy was performed, device was removed, and a new device was connected. As the new device was being connected, patient started complaining of shortness of breath and difficulty breathing. Clinically the patient went into flash pulmonary edema with acute respiratory failure requiring intubation and mechanical ventilation. Patient was admitted to the intensive care unit On 12/04/2017 patient was extubated yesterday. Patient states she is feeling much improved. Patient is currently off the Levophed. Patient remains on amiodarone and Lasix drip. Patient denies chest pain or shortness breath at this time. Patient is being followed cardiology and Dr. Armenta. On 12/05/2017 patient currently resting comfortably in bed. Patient denies chest pain or shortness of breath at this time. Patient remains on amiodarone drip for possible transition to by mouth per cardiology today. Lasix drip has been discontinued and patient back on home dose of Bumex and Aldactone. Patient remains on Rocephin. Cardiology and pulmonary services are following. Patient denies chest pain or shortness of breath Objective - Vital Signs Vital signs: Vital Signs Temp 98 F 12/05/17 08:00 Pulse 155 H 12/05/17 11:26 Resp 23 12/05/17 11:10 BP 149/82 12/05/17 11:10 Pulse Ox 88 L 12/05/17 11:10 Intake & Output 12/04/17 12/05/17 12/05/17 18:59 06:59 18:59 Intake Total 931.3 452.726 600 Output Total 1175 785 260 Balance -243.7 -332.274 340 Weight 127.006 kg 127.3 kg Intake: IV 681.3 273.3 110 Amiodarone 450 mg In 366.3 33.3 Dextrose 5% in Water 250 ml @ 1 MG/MIN 33.33 mls/ hr IV .Q7H31M [facility] Rx#: [id number] Furosemide 250 mg In 15 Sodium Chloride 0.9% 225 ml @ 5 MG/HR 5 mls/hr IVP .Q24H [facility] Rx#:[id number] Lactated Ringers 1,000 ml 240 240 110 @ 20 mls/hr IV .Q24H [facility] Rx#:[id number] Sodium Chloride 0.9% 1, 60 000 ml @ 50 mls/hr IV . Q20H [facility] Rx#:[id number] Intake, IV Titration 250 179.426 250 Amount Amiodarone 450 mg In 250 179.426 Dextrose 5% in Water 250 ml @ 1 MG/MIN 33.33 mls/ hr IV .Q7H31M [facility] Rx#: [id number] Amiodarone 450 mg In 250 Dextrose 5% in Water 250 ml @ 1 MG/MIN 33.33 mls/ hr IV .Q7H31M [facility] Rx#: [id number] Oral 240 Output: Urine 1175 785 260 Other: Voiding Method Indwelling Catheter Indwelling Catheter ABP, PAP, CO, CI - Last Documented Arterial Blood Pressure 135/67 - Exam Head normocephalic Neck supple Lungs diminished bilaterally Heart regular rate and rhythm S1-S2, no rub or gallop Abdomen is soft nontender nondistended positive bowel sounds no hepatosplenomegaly Extremities no edema Neuro alert and orientated to 3 - Labs CBC & Chem 7: 12/05/17 04:35 12/05/17 04:35 Labs: Abnormal Lab Results - Last 24 Hours (Table) 12/04/17 12/04/17 12/04/17 Range/Units 12:30 17:20 21:24 WBC (3.8-10.6) k/uL Hgb (11.4-16.0) gm/dL Hct (34.0-46.0) % RDW (11.5-15.5) % PT (9.0-12.0) sec INR (<1.2) BUN (7-17) mg/dL Creatinine (0.52-1.04) mg/dL Glucose (74-99) mg/dL POC Glucose (mg/dL) 203 H 209 H 228 H (75-99) mg/dL Total Protein (6.3-8.2) g/dL Albumin (3.5-5.0) g/dL 12/05/17 12/05/17 12/05/17 Range/Units 04:35 04:35 04:35 WBC 19.7 H (3.8-10.6) k/uL Hgb 10.5 L (11.4-16.0) gm/dL Hct 33.1 L (34.0-46.0) % RDW 16.3 H (11.5-15.5) % PT 20.0 H (9.0-12.0) sec INR 2.2 H (<1.2) BUN 59 H (7-17) mg/dL Creatinine 1.90 H (0.52-1.04) mg/dL Glucose 181 H (74-99) mg/dL POC Glucose (mg/dL) (75-99) mg/dL Total Protein 5.7 L (6.3-8.2) g/dL Albumin 3.3 L (3.5-5.0) g/dL 12/05/17 Range/Units 07:27 WBC (3.8-10.6) k/uL Hgb (11.4-16.0) gm/dL Hct (34.0-46.0) % RDW (11.5-15.5) % PT (9.0-12.0) sec INR (<1.2) BUN (7-17) mg/dL Creatinine (0.52-1.04) mg/dL Glucose (74-99) mg/dL POC Glucose (mg/dL) 191 H (75-99) mg/dL Total Protein (6.3-8.2) g/dL Albumin (3.5-5.0) g/dL Microbiology - Last 24 Hours (Table) 12/04/17 07:30 Gram Stain - Preliminary Sputum Assessment and Plan Assessment: 1 acute hypoxic respiratory failure requiring intubation and mechanical ventilation secondary to flash pulmonary edema secondary to severe cardiomyopathy and LV dysfunction. Patient has been extubated. Patient remains on Solu-Medrol, DuoNeb and pulmicort. Chest x-ray completed this morning showing interval extubation. Cardiomegaly and chronic emphysematous changes. Dr. Armenta for pulmonary services are following. Lasix drip has been discontinued patient is currently on bumex and Aldactone. 2 status post ICD generator change, postoperative day #3. 3 intermittent ventricular ectopy, being addressed by cardiology on the case. Patient remains on amiodarone. Cardiolgoy services are following. Possible transition to by mouth amiodarone today per cardiology 4 hypotension secondary to severe cardiomyopathy and LV dysfunction. patient currently off the Levophed drip. Resolved 5 nonischemic cardiomyopathy and LV dysfunction 6 type 2 diabetes. Continue home Levemir dose of 41 units and sliding scale insulin. 7 hypothyroidism maintained on Synthroid 8 acute on chronic kidney failure with history of stage III chronic kidney disease. Bun 59, creatinine 1.90. Continue to monitor patient closely 9 suspect some component of acute kidney injury and acute tubular necrosis. Secondary to hypotension. 10. Leukocytosis. White blood cell elevated at 20.3. Improved to 14.2. Patient remains on Rocephin for antibiotics. WBC 19.7 patient is currently on Solu-Medrol 40 mg every 8 hours. 11. History of paroxysmal atrial fibrillation. Patient currently on Coumadin managed by cardiology. INR today 2.2 GI prophylaxis Pepcid. DVT Prophylaxis his Coumadin I performed an examination of the patient and discussed their management with the Nurse Practitioner. I have reviewed the Nurse Practitioner's notes and agree with the documented findings and plan of care
[2017-12-05] MEDS: NITROGLYCERIN-D5W PMX 50 MG in DEXTROSE/WATER 1 250ML.BAG IV SCH (14:04)
[2017-12-05 14:08] LABS: Glucose,Whole Blood 194 mg/dL (75-99)
[2017-12-05] MEDS: SODIUM CHLORIDE 0.9% 1,000 ML IV SCH (14:12)
[2017-12-05] MEDS: AMIODARONE 200 MG TAB PO SCH ×2 (16:50→21:45)
[2017-12-05] MEDS: METOPROLOL TARTRATE 25 MG TAB PO SCH ×2 (16:52→21:45)
[2017-12-05 17:26] LABS: Glucose,Whole Blood 161 mg/dL (75-99)
[2017-12-05 21:37] LABS: Glucose,Whole Blood 146 mg/dL (75-99)
[2017-12-05] MEDS: MONTELUKAST 10 MG TAB PO SCH (21:45)
[2017-12-05] MEDS: ATORVASTATIN 20 MG TAB PO SCH (21:45)
[2017-12-05] MEDS: INSULIN DETEMIR 100 UNIT/ML 10 ML VIAL SQ SCH (21:45)
[2017-12-06] MEDS: methylPREDNISolone SOD SUCCI 40 MG/ML 1 ML VIAL IV SCH ×2 (00:28→08:04)
[2017-12-06] MEDS: AMIODARONE 450 MG in DEXTROSE 5% IN WATER 250 ML IV SCH ×2 (00:30)
[2017-12-06 04:17] LABS: Anisocytosis Slight; HCT 35.6 % (34.0-46.0); HGB 11.3 gm/dL (11.4-16.0); Hypochromasia Slight; MCH 27.3 pg (25.0-35.0); MCHC 31.8 g/dL (31.0-37.0); MCV 85.8 fL (80.0-100.0); Mean Platelet Volume 8.8; Platelet Count 216 k/uL (150-450); RBC 4.15 m/uL (3.80-5.40); RDW 16.1 % (11.5-15.5); WBC 17.4 k/uL (3.8-10.6)
[2017-12-06 04:28] LABS: Albumin 3.5 g/dL (3.5-5.0); Calcium 9.5 mg/dL (8.4-10.2); Magnesium 2.3 mg/dL (1.6-2.3); Phosphorus 4.7 mg/dL (2.5-4.5); Potassium 5.3 mmol/L (3.5-5.1); Total Bilirubin 0.4 mg/dL (0.2-1.3); Total Protein 5.9 g/dL (6.3-8.2)
[2017-12-06 07:10] LABS: Glucose,Whole Blood 150 mg/dL (75-99)
[2017-12-06] MEDS: IPRATROPIUM-ALBUTEROL 3 ML NEB INHALATION SCH ×4 (07:26→20:25)
[2017-12-06] MEDS: BUDESONIDE 1 MG/2 ML NEBU INHALATION SCH ×2 (07:26→20:25)
[2017-12-06] MEDS: BUMETANIDE 1 MG TAB PO SCH ×2 (08:03→18:32)
[2017-12-06] MEDS: AMIODARONE 200 MG TAB PO SCH ×3 (08:03→21:35)
[2017-12-06] MEDS: LEVOTHYROXINE 25 MCG TAB PO SCH (08:04)
[2017-12-06] MEDS: FAMOTIDINE 20 MG TAB PO SCH (08:04)
[2017-12-06] MEDS: METOPROLOL TARTRATE 25 MG TAB PO SCH ×3 (08:04→21:35)
[2017-12-06] MEDS: SPIRONOLACTONE 25 MG TAB PO SCH (08:05)
[2017-12-06] MEDS: INSULIN ASPART 100 UNIT/ML 1 ML 10 ML VIAL SQ SCH ×4 (08:05→21:34)
[2017-12-06] MEDS: cefTRIAXone IN SWFI 1,000 MG/10 ML SYRINGE IVP SCH (08:05)
--- NOTE | 2017-12-06 08:50 | XR ---
EXAMINATION TYPE: XR chest 1V portable DATE OF EXAM: 12/06/2017 HISTORY: pulmonary edema. REFERENCE: Previous study dated 12/05/2017. FINDINGS: There is a multilead pacing device in place on the left. The heart is enlarged. Pulmonary vasculature has improved. Changes of pulmonary edema have improved. No definite pleural fluid is seen. IMPRESSION: IMPROVING CHANGES OF CONGESTIVE HEART FAILURE.
--- NOTE | 2017-12-06 11:00 | P.PN ---
Subjective Progress Note Date: 12/06/17 This is a 66-year-old female, known history of severe cardiomyopathy, previous biventricular ICD placement. Patient has chronic severe congestive heart failure class III, patient was brought in yesterday by cardiology/Dr. Chavez for ICD generator change. While in the EP lab, left shoulder incision was made , partial capsulectomy was performed, device was removed, and a new device was connected. As the new device was being connected, patient started complaining of shortness of breath and difficulty breathing. Clinically the patient went into flash pulmonary edema with acute respiratory failure requiring intubation and mechanical ventilation. Patient was admitted to the intensive care unit and I was asked to see her on consultation. Overnight, the patient required pressors, she also required Lasix drip. I reviewed the chest x-ray shortly after the patient was intubated, and she was clearly in pulmonary edema. When I saw the patient this morning, her chest x-ray showed dramatic improvement, however she was still on 9 g of levo fed. Patient was also on the following vent settings assist control rate of 24 tidal volume of 400 FiO2 of 50% and PEEP of 5. ABG this morning showed a pO2 of 7 pCO2 of 36 and pH of 7.44. Labs , medications, ABG, were all reviewed chest x-ray was also reviewed. Patient was already on propofol which I have discontinued, awaken the patient, and she was very appropriate and followed all instructions properly. Then I proceeded to a short trial of weaning utilizing pressure support of 8 and CPAP. Patient did well for about half an hour while I was at bedside. Then I proceeded to extubating the patient. In the meantime I kept the patient on her Lasix drip, and she is back on her usual cardiac meds. Norepinephrine will be titrated down and hopefully discontinued soon. Patient had an excellent urine output, and her labs were basically unremarkable. She was noted however to have some ventricular ectopy on levo fed, and she was on amiodarone overnight. On today's evaluation of 12/04/2017, I'm seeing this patient for a follow-up. The patient day intensive care unit. The patient has been extubated. Chest x- ray shows improvement in the volume status. Currently the patient on Bumex 2 mg by mouth twice a day. The patient is a negative fluid balance. The patient is improving. The patient is currently on an amiodarone drip as the patient has developed episodes of nonsustained V. tach. These episodes are ranging between 2-3 beats up to 15 beats. The underlying rhythm is atrial fibrillation with a controlled rate. She is also on metoprolol 25 mg by mouth twice a day. She is on warfarin for long-term anticoagulation and the patient's INR is slightly supratherapeutic at 4.2. She has chronic renal failure creatinine is stable at 1.8. The patient has severe nonischemic cardiomyopathy with an ejection fraction of less than 20%. She underwent a recent AICD generator change and her postoperative course was complicated by flash pulmonary edema. Patient was briefly on the mechanical ventilator from which she was weaned off after her volume status was optimized. No cough. No sputum production. No altered mentation. No 70 chronic hypoxic respiratory failure. No history of obstructive sleep apnea. She is morbidly obese. Her current BMI 54.7. The patient is seen today on 12/05/2017 in follow-up in the intensive care unit. She is awake and alert in no acute distress. She denies any worsening shortness of breath, cough or congestion. She is breathing easier today as compared to yesterday. Less wheezing. She is maintaining good O2 saturations in the mid 90s on 2 L/m per nasal cannula. She's been afebrile. White count 19.7. Hemoglobin 10.5. INR 2.2. Creatinine 1.90. She remains on empiric antibiotics in the form of ceftriaxone. She is continued on amiodarone drip per cardiology. On 12/06/2017, I'm seeing this patient for a follow-up. Events from yesterday were noted. The patient went into acute pulmonary edema and this occurred as the patient was placed flat for removal of the arterial sheath. She immediately was placed on a BiPAP which was given a dose of Lasix 80 mg IV push. She was placed on a combination of morphine and nitroglycerin. Nitroglycerin was given to her in the form of a patch. Ultimately she improved. She diuresed. The patient subsequently improved. She was weaned off the BiPAP and she was placed back in oxygen currently is on oxygen by nasal cannula at 5-6 L. She is able to talk normally. No signs of any respiratory distress. She is in a bed at 30 head of bed elevation. She is having occasional PVCs. Amiodarone has been weaned and the patient is currently on oral amiodarone. No episodes of V. tach. She is on Bumex 2 mg by mouth twice a day. She is on no pressors. She is also on Aldactone. The IV Solu Medrol will be weaned down to oral prednisone. The venous sheath will be also removed. Objective - Vital Signs Vital signs: Vital Signs Temp 97.8 F 12/06/17 04:00 Pulse 91 12/06/17 08:30 Resp 22 12/06/17 08:30 BP 108/63 12/06/17 08:30 Pulse Ox 98 12/06/17 08:30 Intake & Output 12/05/17 12/06/17 12/06/17 18:59 06:59 18:59 Intake Total 858.564 412.729 60 Output Total 802 1405 157 Balance 56.564 -992.271 -97 Weight 130.1 kg Intake: IV 250 240 60 Lactated Ringers 1,000 ml 110 @ 20 mls/hr IV .Q24H [facility] Rx#:[id number] Sodium Chloride 0.9% 1, 140 240 60 000 ml @ 20 mls/hr IV . Q24H [facility] Rx#:[id number] Intake, IV Titration 368.564 122.729 Amount Amiodarone 450 mg In 368.564 122.729 Dextrose 5% in Water 250 ml @ 1 MG/MIN 33.33 mls/ hr IV .Q7H31M [facility] Rx#: [id number] Oral 240 50 Output: Urine 802 1405 157 Other: Voiding Method Indwelling Catheter Indwelling Catheter Indwelling Catheter ABP, PAP, CO, CI - Last Documented Arterial Blood Pressure 135/67 - Exam Physical Exam: Revealed a 66-year-old female obese, on mechanical ventilation, in no distress. Awake and alert and answering questions and following commands without any major difficulties. The patient is comfortable and nonlabored breathing. Head: Atraumatic, normocephalic.Head exam was generally normal. There was no scleral icterus or corneal arcus. Mucous membranes were moist. HEENT:Neck was supple and without jugular venous distension, thyromegaly, or carotid bruits. Carotids were easily palpable bilaterally. There was no adenopathy. The patient is a Mallampati class IV was significant crowding of the posterior oropharynx Chest: Few crackles in lung bases bilaterally. Overall breath sounds are diminished. She had minimal wheezes / rhonchi at this point in time she has Cardiac Exam: [Irregular rhythm Normal S1 and S2, no S3 gallop, 2/6 systolic murmur thought the precordium. Abdomen: [Obese, Soft, nontender, no megaly, no rebound, no guarding, normal bowel sounds.] Extremities: The patient has +1 pitting edema lower extremities bilaterally. No cyanosis. No clubbing. Good pulses bilaterally upper and lower extremities. Neurological Exam: [No focal neurologic deficit. Patient on mechanical ventilation, however able to follow all instructions when the propofol was weaned down. Lymphatics: No Lymphadenopathy. Psychiatric: Normal mood affect and mental status examination.] Neurologically the patient is awake and alert and is no focal neurological deficits. Examination of the skin revealed no evidence of significant rashes, suspicious appearing nevi or other concerning lesions. - Labs CBC & Chem 7: 12/06/17 04:05 12/06/17 04:05 Labs: Abnormal Lab Results - Last 24 Hours (Table) 12/05/17 12/05/17 12/05/17 Range/Units 14:00 17:13 21:24 WBC (3.8-10.6) k/uL Hgb (11.4-16.0) gm/dL RDW (11.5-15.5) % Potassium (3.5-5.1) mmol/L BUN (7-17) mg/dL Creatinine (0.52-1.04) mg/dL Glucose (74-99) mg/dL POC Glucose (mg/dL) 194 H 161 H 146 H (75-99) mg/dL Phosphorus (2.5-4.5) mg/dL Total Protein (6.3-8.2) g/dL 12/06/17 12/06/17 12/06/17 Range/Units 04:05 04:05 07:09 WBC 17.4 H (3.8-10.6) k/uL Hgb 11.3 L (11.4-16.0) gm/dL RDW 16.1 H (11.5-15.5) % Potassium 5.3 H (3.5-5.1) mmol/L BUN 77 H (7-17) mg/dL Creatinine 2.10 H (0.52-1.04) mg/dL Glucose 148 H (74-99) mg/dL POC Glucose (mg/dL) 150 H (75-99) mg/dL Phosphorus 4.7 H (2.5-4.5) mg/dL Total Protein 5.9 L (6.3-8.2) g/dL Microbiology - Last 24 Hours (Table) 12/04/17 07:30 Gram Stain - Final Sputum Sputum Culture - Final Assessment and Plan Plan: 1 acute hypoxic respiratory failure secondary to flash pulmonary edema. The patient was initially intubated and placed on a mechanical ventilator. Subsequent she was weaned off and extubated. Yesterday she had another episode of flash pulmonary edema from which she recovered without the need to intubate. She was managed by and invasive possible pressure ventilation. Currently she is on a combination of Bumex and Aldactone. She is also on amiodarone in regards to her intermittent episodes of nonsustained V. tach and frequent PVCs. She is also on beta blockers and the patient is receiving metoprolol 75 mg by mouth 3 times a day. Hemodynamically stable. She is on no pressors for now. Cardiology is on the case. 2 status post ICD generator change, postoperative day #4 3 intermittent episodes of nonsustained V. tach up to 15 beats. Currently on amiodarone orally. She is also on metoprolol. 4 hypotension secondary to severe cardiomyopathy and LV dysfunction, recovered 5 nonischemic cardiomyopathy and LV dysfunction, with an ejection fraction of less than 20% 6 type 2 diabetes 7 hypothyroidism maintained on Synthroid 8 acute on chronic kidney failure with history of stage III chronic kidney disease, creatinine stable 9 obesity with a BMI 54.7 10 long-term antibiotic ventilation with warfarin with a therapeutic INR. Plan Continue the treatment. Continue metoprolol. Continue amiodarone. Continue Bumex and Aldactone. Remove the venous sheath. Monitor PT/INR. Monitor renal function. Sit up on a chair. Wean the FiO2 to maintain a saturation above 90% . This continued IV Solu Medrol put the patient prednisone burst taper. We'll continue to follow.
[2017-12-06 12:05] LABS: Glucose,Whole Blood 133 mg/dL (75-99)
[2017-12-06] MEDS: NITROGLYCERIN-D5W PMX 50 MG in DEXTROSE/WATER 1 250ML.BAG IV SCH (12:55)
--- NOTE | 2017-12-06 14:45 | P.PN ---
Subjective Progress Note Date: 12/06/17 This is a 66-year-old female, known history of severe cardiomyopathy, previous biventricular ICD placement. Patient has chronic severe congestive heart failure class III, patient was brought in yesterday by cardiology/Dr. Chavez for ICD generator change. While in the EP lab, left shoulder incision was made , partial capsulectomy was performed, device was removed, and a new device was connected. As the new device was being connected, patient started complaining of shortness of breath and difficulty breathing. Clinically the patient went into flash pulmonary edema with acute respiratory failure requiring intubation and mechanical ventilation. Patient was admitted to the intensive care unit On 12/04/2017 patient was extubated yesterday. Patient states she is feeling much improved. Patient is currently off the Levophed. Patient remains on amiodarone and Lasix drip. Patient denies chest pain or shortness breath at this time. Patient is being followed cardiology and Dr. Armenta. On 12/05/2017 patient currently resting comfortably in bed. Patient denies chest pain or shortness of breath at this time. Patient remains on amiodarone drip for possible transition to by mouth per cardiology today. Lasix drip has been discontinued and patient back on home dose of Bumex and Aldactone. Patient remains on Rocephin. Cardiology and pulmonary services are following. Patient denies chest pain or shortness of breath. On 12/06/2017 patient is alert and oriented 3 in no apparent distress, she is seen and examined in the intensive care unit, she is maintained on oxygen via nasal cannula and is tolerating well, she denies any chest pain or shortness of breath at this time, there is no cough no nausea or vomiting no abdominal pain and no urinary symptoms. She has chest wall pain at the site of recent pacemaker incision for battery change, otherwise she denies any symptoms at this time. Objective - Vital Signs Vital signs: Vital Signs Temp 98.1 F 12/06/17 12:00 Pulse 82 12/06/17 13:30 Resp 18 12/06/17 13:30 BP 114/51 12/06/17 13:30 Pulse Ox 98 12/06/17 13:30 Intake & Output 12/05/17 12/06/17 12/06/17 18:59 06:59 18:59 Intake Total 858.564 412.729 250 Output Total 802 1405 457 Balance 56.564 -992.271 -207 Weight 130.1 kg Intake: IV 250 240 100 Lactated Ringers 1,000 ml 110 @ 20 mls/hr IV .Q24H [facility] Rx#:[id number] Sodium Chloride 0.9% 1, 140 240 100 000 ml @ 20 mls/hr IV . Q24H [facility] Rx#:[id number] Intake, IV Titration 368.564 122.729 Amount Amiodarone 450 mg In 368.564 122.729 Dextrose 5% in Water 250 ml @ 1 MG/MIN 33.33 mls/ hr IV .Q7H31M [facility] Rx#: [id number] Oral 240 50 150 Output: Urine 802 1405 457 Other: Voiding Method Indwelling Catheter Indwelling Catheter Indwelling Catheter ABP, PAP, CO, CI - Last Documented Arterial Blood Pressure 135/67 - Exam Head normocephalic and atraumatic Neck supple no JVD Lungs diminished bilaterally no crackles no wheezing Heart regular rate and rhythm S1-S2, no rub or gallop Abdomen is soft nontender nondistended positive bowel sounds no hepatosplenomegaly Extremities no edema no cyanosis or clubbing Neuro alert and orientated to 3 - Labs CBC & Chem 7: 12/06/17 04:05 12/06/17 04:05 Labs: Abnormal Lab Results - Last 24 Hours (Table) 12/05/17 12/05/17 12/06/17 Range/Units 17:13 21:24 04:05 WBC 17.4 H (3.8-10.6) k/uL Hgb 11.3 L (11.4-16.0) gm/dL RDW 16.1 H (11.5-15.5) % Potassium (3.5-5.1) mmol/L BUN (7-17) mg/dL Creatinine (0.52-1.04) mg/dL Glucose (74-99) mg/dL POC Glucose (mg/dL) 161 H 146 H (75-99) mg/dL Phosphorus (2.5-4.5) mg/dL Total Protein (6.3-8.2) g/dL 12/06/17 12/06/17 12/06/17 Range/Units 04:05 07:09 11:51 WBC (3.8-10.6) k/uL Hgb (11.4-16.0) gm/dL RDW (11.5-15.5) % Potassium 5.3 H (3.5-5.1) mmol/L BUN 77 H (7-17) mg/dL Creatinine 2.10 H (0.52-1.04) mg/dL Glucose 148 H (74-99) mg/dL POC Glucose (mg/dL) 150 H 133 H (75-99) mg/dL Phosphorus 4.7 H (2.5-4.5) mg/dL Total Protein 5.9 L (6.3-8.2) g/dL Microbiology - Last 24 Hours (Table) 12/04/17 07:30 Gram Stain - Final Sputum Sputum Culture - Final Assessment and Plan Plan: 1 acute hypoxic respiratory failure requiring intubation and mechanical ventilation secondary to flash pulmonary edema secondary to severe cardiomyopathy and LV dysfunction. Patient has been extubated. Patient remains on Solu-Medrol, DuoNeb and pulmicort. Chest x-ray completed this morning showing interval extubation. Cardiomegaly and chronic emphysematous changes. Dr. Armenta for pulmonary services are following. Lasix drip has been discontinued patient is currently on bumex and Aldactone. 2 status post ICD generator change, postoperative day #3. 3 intermittent ventricular ectopy, being addressed by cardiology on the case. Patient remains on amiodarone. Cardiolgoy services are following. Possible transition to by mouth amiodarone today per cardiology 4 hypotension secondary to severe cardiomyopathy and LV dysfunction. patient currently off the Levophed drip. Resolved 5 nonischemic cardiomyopathy and LV dysfunction 6 type 2 diabetes. Continue home Levemir dose of 41 units and sliding scale insulin. 7 hypothyroidism maintained on Synthroid 8 acute on chronic kidney failure with history of stage III chronic kidney disease. Bun 59, creatinine 1.90. Continue to monitor patient closely 9 suspect some component of acute kidney injury and acute tubular necrosis. Secondary to hypotension. 10. Leukocytosis. White blood cell elevated at 20.3. Improved to 14.2. Patient remains on Rocephin for antibiotics. WBC 19.7 patient is currently on Solu-Medrol 40 mg every 8 hours. 11. History of paroxysmal atrial fibrillation. Patient currently on Coumadin managed by cardiology. INR today is pending 12. Morbid obesity GI prophylaxis Pepcid. DVT Prophylaxis Coumadin
[2017-12-06 15:40] LABS: INR 1.4 (<1.2); Prothrombin Time 12.9 sec (9.0-12.0)
[2017-12-06 17:26] LABS: Glucose,Whole Blood 147 mg/dL (75-99)
[2017-12-06] MEDS ORDERED: WARFARIN 7.5 MG TAB PO ONE (18:00)
[2017-12-06] MEDS: SODIUM CHLORIDE 0.9% 1,000 ML IV SCH (18:33)
[2017-12-06] MEDS: ATORVASTATIN 20 MG TAB PO SCH (20:15)
[2017-12-06] MEDS: MONTELUKAST 10 MG TAB PO SCH (20:15)
[2017-12-06 20:21] LABS: Glucose,Whole Blood 200 mg/dL (75-99)
[2017-12-06 20:59] LABS: Glucose,Whole Blood 198 mg/dL (75-99)
[2017-12-06] MEDS: INSULIN DETEMIR 100 UNIT/ML 10 ML VIAL SQ SCH (21:35)
--- NOTE | 2017-12-06 22:10 | PN ---
PROGRESS NOTE This patient has advanced nonischemic cardiomyopathy. The patient's arterial line was pulled out yesterday and patient went into acute flash pulmonary edema. Patient was sedated and subsequently improved. She is doing much better. No respiratory distress is noted. The patient is afebrile. HEART: First and second heart sounds are normal. Lungs reveal bilateral few scattered wheezes. Blood pressure is 130/80 mmHg. HEART: S1 and S2 normal. Patient's electrolytes are normal. Creatinine is 2.10. ASSESSMENT AND PLAN: 1. Acute pulmonary edema, resolved. 2. Nonischemic cardiomyopathy with severely impaired left ventricular systolic function. We will continue the patient on current dose of Bumex and if the patient's blood pressure is stable, we will start the patient on hydralazine. If the patient's creatinine remains stable, we will consider starting the patient on Entresto. RONNIE / ARTIE: [id number] /
[2017-12-07 03:58] LABS: Anisocytosis Slight; Basophils % (A) 0 %; Eosinophils % (A) 0 %; HCT 34.7 % (34.0-46.0); HGB 11.1 gm/dL (11.4-16.0); Lymphocytes # (A) 0.8 k/uL (1.0-4.8); Lymphocytes % (A) 5 %; MCH 27.3 pg (25.0-35.0); MCV 85.2 fL (80.0-100.0); Mean Platelet Volume 8.6; Monocytes # (A) 1.1 k/uL (0-1.0); Monocytes % (A) 7 %; Neutrophils # (A) 13.3 k/uL (1.3-7.7); Neutrophils % (A) 86 %; Platelet Count 203 k/uL (150-450); RBC 4.07 m/uL (3.80-5.40); RDW 16.1 % (11.5-15.5); WBC 15.4 k/uL (3.8-10.6)
[2017-12-07 04:09] LABS: Albumin 3.3 g/dL (3.5-5.0); Calcium 9.1 mg/dL (8.4-10.2); Potassium 4.9 mmol/L (3.5-5.1); Total Bilirubin 0.5 mg/dL (0.2-1.3); Total Protein 5.6 g/dL (6.3-8.2)
[2017-12-07 04:13] LABS: INR 1.3 (<1.2); Prothrombin Time 12.2 sec (9.0-12.0)
[2017-12-07 06:57] LABS: Glucose,Whole Blood 134 mg/dL (75-99)
[2017-12-07] MEDS: INSULIN ASPART 100 UNIT/ML 1 ML 10 ML VIAL SQ SCH ×4 (07:51→21:23)
[2017-12-07] MEDS: LEVOTHYROXINE 25 MCG TAB PO SCH (07:58)
[2017-12-07] MEDS: AMIODARONE 200 MG TAB PO SCH ×3 (08:00→21:17)
[2017-12-07] MEDS: BUMETANIDE 1 MG TAB PO SCH ×2 (08:00→16:41)
[2017-12-07] MEDS: SPIRONOLACTONE 25 MG TAB PO SCH (08:00)
[2017-12-07] MEDS: predniSONE 10 MG TAB PO SCH (08:00)
[2017-12-07] MEDS: METOPROLOL TARTRATE 25 MG TAB PO SCH ×3 (08:00→21:18)
[2017-12-07] MEDS: FAMOTIDINE 20 MG TAB PO SCH (08:00)
[2017-12-07] MEDS: IPRATROPIUM-ALBUTEROL 3 ML NEB INHALATION SCH ×4 (08:05→20:01)
[2017-12-07] MEDS: BUDESONIDE 1 MG/2 ML NEBU INHALATION SCH ×2 (08:05→20:01)
[2017-12-07] MEDS: cefTRIAXone IN SWFI 1,000 MG/10 ML SYRINGE IVP SCH (08:05)
[2017-12-07 11:48] LABS: Glucose,Whole Blood 120 mg/dL (75-99)
--- NOTE | 2017-12-07 11:59 | PN ---
PROGRESS NOTE DATE OF SERVICE: 12/07/2017. HISTORY: This patient has recovered from acute pulmonary edema. She is feeling better. She is lying comfortably in the bed. The patient cannot lay flat for a long time. She has been diuresing fairly well. PHYSICAL EXAM: Blood pressure is 110/62 mmHg, heart rate is 82 per minute. First and second heart sounds are normal. Lung examination reveals bilateral rhonchi. Abdomen is soft. LABS: Electrolytes are normal. Creatinine is 2.27 and BUN is 98. Some rise in the BUN could be secondary to the prednisone. PLAN: I will decrease the dose of Bumex to 1 mg in the afternoon. The patient is started on hydralazine 25 mg t.i.d. and nitro paste 1 inch every 8 hours. We will get nephrology consult because of increasing creatinine. Patient's overall long-term prognosis is guarded. After discharge from the hospital we will recommend to refer the patient to the heart failure clinic at [facility]. MMODL / IJN: [id number] /
--- NOTE | 2017-12-07 13:16 | P.PN ---
Subjective Progress Note Date: 12/07/17 This is a 66-year-old female, known history of severe cardiomyopathy, previous biventricular ICD placement. Patient has chronic severe congestive heart failure class III, patient was brought in yesterday by cardiology/Dr. Chavez for ICD generator change. While in the EP lab, left shoulder incision was made , partial capsulectomy was performed, device was removed, and a new device was connected. As the new device was being connected, patient started complaining of shortness of breath and difficulty breathing. Clinically the patient went into flash pulmonary edema with acute respiratory failure requiring intubation and mechanical ventilation. Patient was admitted to the intensive care unit and I was asked to see her on consultation. Overnight, the patient required pressors, she also required Lasix drip. I reviewed the chest x-ray shortly after the patient was intubated, and she was clearly in pulmonary edema. When I saw the patient this morning, her chest x-ray showed dramatic improvement, however she was still on 9 g of levo fed. Patient was also on the following vent settings assist control rate of 24 tidal volume of 400 FiO2 of 50% and PEEP of 5. ABG this morning showed a pO2 of 7 pCO2 of 36 and pH of 7.44. Labs , medications, ABG, were all reviewed chest x-ray was also reviewed. Patient was already on propofol which I have discontinued, awaken the patient, and she was very appropriate and followed all instructions properly. Then I proceeded to a short trial of weaning utilizing pressure support of 8 and CPAP. Patient did well for about half an hour while I was at bedside. Then I proceeded to extubating the patient. In the meantime I kept the patient on her Lasix drip, and she is back on her usual cardiac meds. Norepinephrine will be titrated down and hopefully discontinued soon. Patient had an excellent urine output, and her labs were basically unremarkable. She was noted however to have some ventricular ectopy on levo fed, and she was on amiodarone overnight. On today's evaluation of 12/04/2017, I'm seeing this patient for a follow-up. The patient day intensive care unit. The patient has been extubated. Chest x- ray shows improvement in the volume status. Currently the patient on Bumex 2 mg by mouth twice a day. The patient is a negative fluid balance. The patient is improving. The patient is currently on an amiodarone drip as the patient has developed episodes of nonsustained V. tach. These episodes are ranging between 2-3 beats up to 15 beats. The underlying rhythm is atrial fibrillation with a controlled rate. She is also on metoprolol 25 mg by mouth twice a day. She is on warfarin for long-term anticoagulation and the patient's INR is slightly supratherapeutic at 4.2. She has chronic renal failure creatinine is stable at 1.8. The patient has severe nonischemic cardiomyopathy with an ejection fraction of less than 20%. She underwent a recent AICD generator change and her postoperative course was complicated by flash pulmonary edema. Patient was briefly on the mechanical ventilator from which she was weaned off after her volume status was optimized. No cough. No sputum production. No altered mentation. No 70 chronic hypoxic respiratory failure. No history of obstructive sleep apnea. She is morbidly obese. Her current BMI 54.7. The patient is seen today on 12/05/2017 in follow-up in the intensive care unit. She is awake and alert in no acute distress. She denies any worsening shortness of breath, cough or congestion. She is breathing easier today as compared to yesterday. Less wheezing. She is maintaining good O2 saturations in the mid 90s on 2 L/m per nasal cannula. She's been afebrile. White count 19.7. Hemoglobin 10.5. INR 2.2. Creatinine 1.90. She remains on empiric antibiotics in the form of ceftriaxone. She is continued on amiodarone drip per cardiology. On 12/06/2017, I'm seeing this patient for a follow-up. Events from yesterday were noted. The patient went into acute pulmonary edema and this occurred as the patient was placed flat for removal of the arterial sheath. She immediately was placed on a BiPAP which was given a dose of Lasix 80 mg IV push. She was placed on a combination of morphine and nitroglycerin. Nitroglycerin was given to her in the form of a patch. Ultimately she improved. She diuresed. The patient subsequently improved. She was weaned off the BiPAP and she was placed back in oxygen currently is on oxygen by nasal cannula at 5-6 L. She is able to talk normally. No signs of any respiratory distress. She is in a bed at 30 head of bed elevation. She is having occasional PVCs. Amiodarone has been weaned and the patient is currently on oral amiodarone. No episodes of V. tach. She is on Bumex 2 mg by mouth twice a day. She is on no pressors. She is also on Aldactone. The IV Solu Medrol will be weaned down to oral prednisone. The venous sheath will be also removed. On 12/07/2017 the patient remains in intensive care unit. The patient is calm and comfortable. No signs of any respiratory distress. No fever or chills. She is being diuresed with oral Bumex. He will noted that the patient's creatinine is on the rise and the BUN is also on the rise. Nephrology consultation was obtained. Occasional PVCs. On the site monitor. No worsening and oxygenation. No chest pain. No altered mentation. She is able to sit up on a chair as she did yesterday. No other significant events overnight. The patient is currently on 4 L about 2 by nasal cannula with a pulse ox of 97%. He is also on antibiotic ventilation with warfarin. PT/INR is subtherapeutic at this point in time Objective - Vital Signs Vital signs: Vital Signs Temp 98.7 F 12/07/17 08:00 Pulse 78 12/07/17 12:03 Resp 24 12/07/17 10:30 BP 110/62 12/07/17 10:30 Pulse Ox 97 12/07/17 10:30 Intake & Output 12/06/17 12/07/17 12/07/17 18:59 06:59 18:59 Intake Total 250 Output Total 757 1575 590 Balance -507 -0908 -038 Weight 125.2 kg Intake: IV 100 Sodium Chloride 0.9% 1, 100 000 ml @ 20 mls/hr IV . Q24H [facility] Rx#:[id number] Oral 150 Output: Urine 757 1575 590 Other: Voiding Method Indwelling Catheter Indwelling Catheter Indwelling Catheter ABP, PAP, CO, CI - Last Documented Arterial Blood Pressure 135/67 - Exam Physical Exam: Revealed a 66-year-old female obese, on mechanical ventilation, in no distress. Awake and alert and answering questions and following commands without any major difficulties. The patient is comfortable and nonlabored breathing. Head: Atraumatic, normocephalic.Head exam was generally normal. There was no scleral icterus or corneal arcus. Mucous membranes were moist. HEENT:Neck was supple and without jugular venous distension, thyromegaly, or carotid bruits. Carotids were easily palpable bilaterally. There was no adenopathy. The patient is a Mallampati class IV was significant crowding of the posterior oropharynx Chest: Few crackles in lung bases bilaterally. Overall breath sounds are diminished. She had minimal wheezes / rhonchi at this point in time she has Cardiac Exam: [Irregular rhythm Normal S1 and S2, no S3 gallop, 2/6 systolic murmur thought the precordium. Abdomen: [Obese, Soft, nontender, no megaly, no rebound, no guarding, normal bowel sounds.] Extremities: The patient has +1 pitting edema lower extremities bilaterally. No cyanosis. No clubbing. Good pulses bilaterally upper and lower extremities. Neurological Exam: [No focal neurologic deficit. Patient on mechanical ventilation, however able to follow all instructions when the propofol was weaned down. Lymphatics: No Lymphadenopathy. Psychiatric: Normal mood affect and mental status examination.] Neurologically the patient is awake and alert and is no focal neurological deficits. Examination of the skin revealed no evidence of significant rashes, suspicious appearing nevi or other concerning lesions. - Labs CBC & Chem 7: 12/07/17 03:40 12/07/17 03:40 Labs: Abnormal Lab Results - Last 24 Hours (Table) 12/06/17 12/06/17 12/06/17 Range/Units 15:13 17:23 20:17 WBC (3.8-10.6) k/uL Hgb (11.4-16.0) gm/dL RDW (11.5-15.5) % Neutrophils # (1.3-7.7) k/uL Lymphocytes # (1.0-4.8) k/uL Monocytes # (0-1.0) k/uL PT 12.9 H (9.0-12.0) sec INR 1.4 H (<1.2) BUN (7-17) mg/dL Creatinine (0.52-1.04) mg/dL Glucose (74-99) mg/dL POC Glucose (mg/dL) 147 H 200 H (75-99) mg/dL Total Protein (6.3-8.2) g/dL Albumin (3.5-5.0) g/dL 12/06/17 12/07/17 12/07/17 Range/Units 20:57 03:40 03:40 WBC 15.4 H (3.8-10.6) k/uL Hgb 11.1 L (11.4-16.0) gm/dL RDW 16.1 H (11.5-15.5) % Neutrophils # 13.3 H (1.3-7.7) k/uL Lymphocytes # 0.8 L (1.0-4.8) k/uL Monocytes # 1.1 H (0-1.0) k/uL PT 12.2 H (9.0-12.0) sec INR 1.3 H (<1.2) BUN (7-17) mg/dL Creatinine (0.52-1.04) mg/dL Glucose (74-99) mg/dL POC Glucose (mg/dL) 198 H (75-99) mg/dL Total Protein (6.3-8.2) g/dL Albumin (3.5-5.0) g/dL 12/07/17 12/07/17 12/07/17 Range/Units 03:40 06:51 11:29 WBC (3.8-10.6) k/uL Hgb (11.4-16.0) gm/dL RDW (11.5-15.5) % Neutrophils # (1.3-7.7) k/uL Lymphocytes # (1.0-4.8) k/uL Monocytes # (0-1.0) k/uL PT (9.0-12.0) sec INR (<1.2) BUN 98 H* (7-17) mg/dL Creatinine 2.27 H (0.52-1.04) mg/dL Glucose 122 H (74-99) mg/dL POC Glucose (mg/dL) 134 H 120 H (75-99) mg/dL Total Protein 5.6 L (6.3-8.2) g/dL Albumin 3.3 L (3.5-5.0) g/dL Microbiology - Last 24 Hours (Table) 12/04/17 07:30 Gram Stain - Final Sputum Sputum Culture - Final Assessment and Plan Plan: 1 acute hypoxic respiratory failure secondary to flash pulmonary edema. The patient was initially intubated and placed on a mechanical ventilator. Subsequent she was weaned off and extubated. Yesterday she had another episode of flash pulmonary edema from which she recovered without the need to intubate. She was managed by and invasive possible pressure ventilation. Currently she is on a combination of Bumex and Aldactone. She is also on amiodarone in regards to her intermittent episodes of nonsustained V. tach and frequent PVCs. She is also on beta blockers and the patient is receiving metoprolol 75 mg by mouth 3 times a day. Hemodynamically stable. She is on no pressors for now. Cardiology is on the case. On today's evaluation of 12/07/2017, the patient's pulmonary status is stable. The patient is not having any significant respiratory distress at rest. She is on 40s about 2 by nasal cannula. She is being monitored from a cardiac standpoint that she is having occasional PVCs. She is also on a combination of Bumex and Aldactone as diuretics, warfarin as long-term anticoagulation and the PT/INR is being monitored. Diuretics have been cut down based on concerns of developing renal failure. 2 status post ICD generator change, postoperative day #5 3 intermittent episodes of nonsustained V. tach up to 15 beats. Currently on amiodarone orally. She is also on metoprolol. 4 hypotension secondary to severe cardiomyopathy and LV dysfunction, recovered 5 nonischemic cardiomyopathy and LV dysfunction, with an ejection fraction of less than 20% 6 type 2 diabetes 7 hypothyroidism maintained on Synthroid 8 acute on chronic kidney failure with history of stage III chronic kidney disease, and there is interval rise in the BUN and the creatinine. Nephrology will be consulted. 9 obesity with a BMI 54.7 10 long-term antibiotic ventilation with warfarin with a therapeutic INR. Plan Continue the treatment. Continue metoprolol. Continue amiodarone. Continue Bumex and Aldactone. Her max dose was cut down by cardiology. We'll continue monitoring the function. Consult nephrology. Wean down the FiO2 as tolerated currently she is on 40s about 2 by nasal cannula. We'll continue to follow. Keep the patient ICU.
--- NOTE | 2017-12-07 15:13 | P.PN ---
Subjective Progress Note Date: 12/07/17 This is a 66-year-old female, known history of severe cardiomyopathy, previous biventricular ICD placement. Patient has chronic severe congestive heart failure class III, patient was brought in yesterday by cardiology/Dr. Chavez for ICD generator change. While in the EP lab, left shoulder incision was made , partial capsulectomy was performed, device was removed, and a new device was connected. As the new device was being connected, patient started complaining of shortness of breath and difficulty breathing. Clinically the patient went into flash pulmonary edema with acute respiratory failure requiring intubation and mechanical ventilation. Patient was admitted to the intensive care unit On 12/04/2017 patient was extubated yesterday. Patient states she is feeling much improved. Patient is currently off the Levophed. Patient remains on amiodarone and Lasix drip. Patient denies chest pain or shortness breath at this time. Patient is being followed cardiology and Dr. Armenta. On 12/05/2017 patient currently resting comfortably in bed. Patient denies chest pain or shortness of breath at this time. Patient remains on amiodarone drip for possible transition to by mouth per cardiology today. Lasix drip has been discontinued and patient back on home dose of Bumex and Aldactone. Patient remains on Rocephin. Cardiology and pulmonary services are following. Patient denies chest pain or shortness of breath. On 12/06/2017 patient is alert and oriented 3 in no apparent distress, she is seen and examined in the intensive care unit, she is maintained on oxygen via nasal cannula and is tolerating well, she denies any chest pain or shortness of breath at this time, there is no cough no nausea or vomiting no abdominal pain and no urinary symptoms. She has chest wall pain at the site of recent pacemaker incision for battery change, otherwise she denies any symptoms at this time. On 12/07/2017 patient is alert and oriented 3 she is seen and examined in ICU complaining of chest wall pain site of incision otherwise she denies any complaints at this time there is no fever or chills no headache no dizziness no chest pain no shortness of breath no cough no nausea or vomiting no abdominal pain and no urinary symptoms Objective - Vital Signs Vital signs: Vital Signs Temp 98.7 F 12/07/17 12:00 Pulse 74 08/12/18 13:30 Resp 20 12/07/17 13:30 BP 111/66 12/07/17 13:30 Pulse Ox 99 12/07/17 13:30 Intake & Output 12/06/17 12/07/17 12/07/17 18:59 06:59 18:59 Intake Total 250 Output Total 428 6587 672 Balance -396 -1643 -738 Weight 125.2 kg Intake: IV 100 Sodium Chloride 0.9% 1, 100 000 ml @ 20 mls/hr IV . Q24H [facility] Rx#:[id number] Oral 150 Output: Urine 926 [id number] 489 Other: Voiding Method Indwelling Catheter Indwelling Catheter Indwelling Catheter ABP, PAP, CO, CI - Last Documented Arterial Blood Pressure 135/67 - Exam Head normocephalic and atraumatic Neck supple no JVD Lungs diminished bilaterally no crackles no wheezing Heart regular rate and rhythm S1-S2, no rub or gallop Abdomen is soft nontender nondistended positive bowel sounds no hepatosplenomegaly Extremities no edema no cyanosis or clubbing Neuro alert and orientated to 3 - Labs CBC & Chem 7: 12/07/17 03:40 12/07/17 03:40 Labs: Abnormal Lab Results - Last 24 Hours (Table) 12/06/17 12/06/17 12/06/17 Range/Units 15:13 17:23 20:17 WBC (3.8-10.6) k/uL Hgb (11.4-16.0) gm/dL RDW (11.5-15.5) % Neutrophils # (1.3-7.7) k/uL Lymphocytes # (1.0-4.8) k/uL Monocytes # (0-1.0) k/uL PT 12.9 H (9.0-12.0) sec INR 1.4 H (<1.2) BUN (7-17) mg/dL Creatinine (0.52-1.04) mg/dL Glucose (74-99) mg/dL POC Glucose (mg/dL) 147 H 200 H (75-99) mg/dL Total Protein (6.3-8.2) g/dL Albumin (3.5-5.0) g/dL 12/06/17 12/07/17 12/07/17 Range/Units 20:57 03:40 03:40 WBC 15.4 H (3.8-10.6) k/uL Hgb 11.1 L (11.4-16.0) gm/dL RDW 16.1 H (11.5-15.5) % Neutrophils # 13.3 H (1.3-7.7) k/uL Lymphocytes # 0.8 L (1.0-4.8) k/uL Monocytes # 1.1 H (0-1.0) k/uL PT 12.2 H (9.0-12.0) sec INR 1.3 H (<1.2) BUN (7-17) mg/dL Creatinine (0.52-1.04) mg/dL Glucose (74-99) mg/dL POC Glucose (mg/dL) 198 H (75-99) mg/dL Total Protein (6.3-8.2) g/dL Albumin (3.5-5.0) g/dL 12/07/17 12/07/17 12/07/17 Range/Units 03:40 06:51 11:29 WBC (3.8-10.6) k/uL Hgb (11.4-16.0) gm/dL RDW (11.5-15.5) % Neutrophils # (1.3-7.7) k/uL Lymphocytes # (1.0-4.8) k/uL Monocytes # (0-1.0) k/uL PT (9.0-12.0) sec INR (<1.2) BUN 98 H* (7-17) mg/dL Creatinine 2.27 H (0.52-1.04) mg/dL Glucose 122 H (74-99) mg/dL POC Glucose (mg/dL) 134 H 120 H (75-99) mg/dL Total Protein 5.6 L (6.3-8.2) g/dL Albumin 3.3 L (3.5-5.0) g/dL Assessment and Plan Plan: 1 acute hypoxic respiratory failure requiring intubation and mechanical ventilation secondary to flash pulmonary edema secondary to severe cardiomyopathy and LV dysfunction. Patient has been extubated. Patient remains on Solu-Medrol, DuoNeb and pulmicort. Chest x-ray completed this morning showing interval extubation. Cardiomegaly and chronic emphysematous changes. Dr. Armenta for pulmonary services are following. Lasix drip has been discontinued patient is currently on bumex and Aldactone. 2 status post ICD generator change, postoperative day #3. 3 intermittent ventricular ectopy, being addressed by cardiology on the case. Patient remains on amiodarone. Cardiolgoy services are following. Possible transition to by mouth amiodarone today per cardiology 4 hypotension secondary to severe cardiomyopathy and LV dysfunction. patient currently off the Levophed drip. Resolved 5 nonischemic cardiomyopathy and LV dysfunction 6 type 2 diabetes. Continue home Levemir dose of 41 units and sliding scale insulin. 7 hypothyroidism maintained on Synthroid 8 acute on chronic kidney failure with history of stage III chronic kidney disease. Bun 59, creatinine 1.90. Continue to monitor patient closely 9 suspect some component of acute kidney injury and acute tubular necrosis. Secondary to hypotension. 10. Leukocytosis. White blood cell elevated at 20.3. Improved to 14.2. Patient remains on Rocephin for antibiotics. WBC 19.7 patient is currently on Solu-Medrol 40 mg every 8 hours. 11. History of paroxysmal atrial fibrillation. Patient currently on Coumadin managed by cardiology. INR today is pending 12. Morbid obesity GI prophylaxis Pepcid. DVT Prophylaxis Coumadin
[2017-12-07] MEDS: NITROGLYCERIN OINT 1 INCH/GM PACKET TOPICAL SCH ×2 (16:38→17:46)
[2017-12-07] MEDS: SODIUM CHLORIDE 0.9% 1,000 ML IV SCH (16:41)
[2017-12-07] MEDS: hydrALAZINE HCL 25 MG TAB PO SCH ×2 (16:41→22:30)
[2017-12-07 17:03] LABS: Glucose,Whole Blood 170 mg/dL (75-99)
[2017-12-07] MEDS ORDERED: WARFARIN 7.5 MG TAB PO ONE (18:00)
[2017-12-07 20:59] LABS: Glucose,Whole Blood 180 mg/dL (75-99)
[2017-12-07] MEDS: MONTELUKAST 10 MG TAB PO SCH (21:18)
[2017-12-07] MEDS: ATORVASTATIN 20 MG TAB PO SCH (21:18)
[2017-12-07] MEDS: INSULIN DETEMIR 100 UNIT/ML 10 ML VIAL SQ SCH (21:24)
[2017-12-07] MEDS ORDERED: amLODIPine 2.5 MG TAB PO SCH (23:15)
[2017-12-08] MEDS: NITROGLYCERIN OINT 1 INCH/GM PACKET TOPICAL SCH ×5 (00:18→23:55)
[2017-12-08 05:38] LABS: Anisocytosis Slight; Basophils % (A) 0 %; Eosinophils % (A) 0 %; HCT 35.7 % (34.0-46.0); HGB 11.5 gm/dL (11.4-16.0); Lymphocytes # (A) 1.2 k/uL (1.0-4.8); Lymphocytes % (A) 7 %; MCH 27.4 pg (25.0-35.0); MCHC 32.3 g/dL (31.0-37.0); MCV 84.7 fL (80.0-100.0); Mean Platelet Volume 8.8; Monocytes # (A) 1.3 k/uL (0-1.0); Monocytes % (A) 8 %; Neutrophils # (A) 12.9 k/uL (1.3-7.7); Neutrophils % (A) 81 %; Platelet Count 196 k/uL (150-450); RBC 4.21 m/uL (3.80-5.40); RDW 16.1 % (11.5-15.5); WBC 15.9 k/uL (3.8-10.6)
[2017-12-08 05:49] LABS: INR 1.5 (<1.2); Prothrombin Time 13.9 sec (9.0-12.0)
[2017-12-08 05:55] LABS: Albumin 3.4 g/dL (3.5-5.0); Calcium 8.9 mg/dL (8.4-10.2); Potassium 4.3 mmol/L (3.5-5.1); Total Bilirubin 0.5 mg/dL (0.2-1.3); Total Protein 5.7 g/dL (6.3-8.2)
[2017-12-08] MEDS: LEVOTHYROXINE 25 MCG TAB PO SCH (06:37)
[2017-12-08 07:24] LABS: Glucose,Whole Blood 89 mg/dL (75-99)
[2017-12-08] MEDS: IPRATROPIUM-ALBUTEROL 3 ML NEB INHALATION SCH ×4 (08:02→19:21)
[2017-12-08] MEDS: BUDESONIDE 1 MG/2 ML NEBU INHALATION SCH ×2 (08:02→19:26)
[2017-12-08 08:06] LABS: Magnesium 2.5 mg/dL (1.6-2.3); Phosphorus 5.2 mg/dL (2.5-4.5)
--- NOTE | 2017-12-08 08:27 | P.PN ---
Subjective Progress Note Date: 12/08/17 Principal diagnosis: Acute hypoxic respiratory failure secondary to flash pulmonary edema, nonischemic cardiomyopathy, LV dysfunction, nonsustained V. tach This is a 66-year-old female, known history of severe cardiomyopathy, previous biventricular ICD placement. Patient has chronic severe congestive heart failure class III, patient was brought in yesterday by cardiology/Dr. Chavez for ICD generator change. While in the EP lab, left shoulder incision was made , partial capsulectomy was performed, device was removed, and a new device was connected. As the new device was being connected, patient started complaining of shortness of breath and difficulty breathing. Clinically the patient went into flash pulmonary edema with acute respiratory failure requiring intubation and mechanical ventilation. Patient was admitted to the intensive care unit and I was asked to see her on consultation. Overnight, the patient required pressors, she also required Lasix drip. I reviewed the chest x-ray shortly after the patient was intubated, and she was clearly in pulmonary edema. When I saw the patient this morning, her chest x-ray showed dramatic improvement, however she was still on 9 g of levo fed. Patient was also on the following vent settings assist control rate of 24 tidal volume of 400 FiO2 of 50% and PEEP of 5. ABG this morning showed a pO2 of 7 pCO2 of 36 and pH of 7.44. Labs , medications, ABG, were all reviewed chest x-ray was also reviewed. Patient was already on propofol which I have discontinued, awaken the patient, and she was very appropriate and followed all instructions properly. Then I proceeded to a short trial of weaning utilizing pressure support of 8 and CPAP. Patient did well for about half an hour while I was at bedside. Then I proceeded to extubating the patient. In the meantime I kept the patient on her Lasix drip, and she is back on her usual cardiac meds. Norepinephrine will be titrated down and hopefully discontinued soon. Patient had an excellent urine output, and her labs were basically unremarkable. She was noted however to have some ventricular ectopy on levo fed, and she was on amiodarone overnight. On today's evaluation of 12/04/2017, I'm seeing this patient for a follow-up. The patient day intensive care unit. The patient has been extubated. Chest x- ray shows improvement in the volume status. Currently the patient on Bumex 2 mg by mouth twice a day. The patient is a negative fluid balance. The patient is improving. The patient is currently on an amiodarone drip as the patient has developed episodes of nonsustained V. tach. These episodes are ranging between 2-3 beats up to 15 beats. The underlying rhythm is atrial fibrillation with a controlled rate. She is also on metoprolol 25 mg by mouth twice a day. She is on warfarin for long-term anticoagulation and the patient's INR is slightly supratherapeutic at 4.2. She has chronic renal failure creatinine is stable at 1.8. The patient has severe nonischemic cardiomyopathy with an ejection fraction of less than 20%. She underwent a recent AICD generator change and her postoperative course was complicated by flash pulmonary edema. Patient was briefly on the mechanical ventilator from which she was weaned off after her volume status was optimized. No cough. No sputum production. No altered mentation. No 70 chronic hypoxic respiratory failure. No history of obstructive sleep apnea. She is morbidly obese. Her current BMI 54.7. The patient is seen today on 12/05/2017 in follow-up in the intensive care unit. She is awake and alert in no acute distress. She denies any worsening shortness of breath, cough or congestion. She is breathing easier today as compared to yesterday. Less wheezing. She is maintaining good O2 saturations in the mid 90s on 2 L/m per nasal cannula. She's been afebrile. White count 19.7. Hemoglobin 10.5. INR 2.2. Creatinine 1.90. She remains on empiric antibiotics in the form of ceftriaxone. She is continued on amiodarone drip per cardiology. On 12/06/2017, I'm seeing this patient for a follow-up. Events from yesterday were noted. The patient went into acute pulmonary edema and this occurred as the patient was placed flat for removal of the arterial sheath. She immediately was placed on a BiPAP which was given a dose of Lasix 80 mg IV push. She was placed on a combination of morphine and nitroglycerin. Nitroglycerin was given to her in the form of a patch. Ultimately she improved. She diuresed. The patient subsequently improved. She was weaned off the BiPAP and she was placed back in oxygen currently is on oxygen by nasal cannula at 5-6 L. She is able to talk normally. No signs of any respiratory distress. She is in a bed at 30 head of bed elevation. She is having occasional PVCs. Amiodarone has been weaned and the patient is currently on oral amiodarone. No episodes of V. tach. She is on Bumex 2 mg by mouth twice a day. She is on no pressors. She is also on Aldactone. The IV Solu Medrol will be weaned down to oral prednisone. The venous sheath will be also removed. On 12/07/2017 the patient remains in intensive care unit. The patient is calm and comfortable. No signs of any respiratory distress. No fever or chills. She is being diuresed with oral Bumex. He will noted that the patient's creatinine is on the rise and the BUN is also on the rise. Nephrology consultation was obtained. Occasional PVCs. On the court monitor. No worsening and oxygenation. No chest pain. No altered mentation. She is able to sit up on a chair as she did yesterday. No other significant events overnight. The patient is currently on 4 L about 2 by nasal cannula with a pulse ox of 97%. He is also on antibiotic ventilation with warfarin. PT/INR is subtherapeutic at this point in time On 12/08/2017 patient seen in follow-up in the intensive care unit, she is awake alert, in no acute distress, this is postop day 6 status post ICD generator change. denies any dyspnea, currently on 2 L per nasal cannula with pulse ox of 99%, she is afebrile, hemodynamically stable. No new chest x-rays today, yesterday's chest x-ray has been reviewed, and shows improving changes of congestive heart failure, left pleural effusion and atelectasis. No chest pain, no episodes of tachyarrhythmias. No altered mentation. She is off the BiPAP support. She is currently on oral Bumex she is in -1470 mL fluid balance over the last 24 hours. Lung sounds reveals bibasilar crackles, overall breath sounds are diminished. IV fluids have been hep-locked. His labs have been reviewed, WBC is 15.9, hemoglobin is 11.5, B1 is 111, creatinine is 2.4. REnal profile has slightly worsened, INR is still subtherapeutic at 1.5. Objective - Vital Signs Vital signs: Vital Signs Temp 97.8 F 12/08/17 04:00 Pulse 75 12/08/17 08:04 Resp 20 12/08/17 07:00 BP 119/58 12/08/17 07:00 Pulse Ox 99 12/08/17 07:00 Intake & Output 12/07/17 12/08/17 12/08/17 18:59 06:59 18:59 Intake Total 450 500 Output Total 1390 1030 30 Balance -940 -530 -30 Weight 123.5 kg Intake: Oral 450 500 Output: Urine 1390 1030 30 Other: Voiding Method Indwelling Catheter Indwelling Catheter ABP, PAP, CO, CI - Last Documented Arterial Blood Pressure 135/67 - Exam Physical Exam: Revealed a 66-year-old female obese, on mechanical ventilation, in no distress. Awake and alert and answering questions and following commands without any major difficulties. The patient is comfortable and nonlabored breathing. Head: Atraumatic, normocephalic.Head exam was generally normal. There was no scleral icterus or corneal arcus. Mucous membranes were moist. HEENT:Neck was supple and without jugular venous distension, thyromegaly, or carotid bruits. Carotids were easily palpable bilaterally. There was no adenopathy. The patient is a Mallampati class IV was significant crowding of the posterior oropharynx Chest: Few crackles in lung bases bilaterally. Overall breath sounds are diminished. She had minimal wheezes / rhonchi at this point in time she has Cardiac Exam: [Irregular rhythm Normal S1 and S2, no S3 gallop, 2/6 systolic murmur thought the precordium. Abdomen: [Obese, Soft, nontender, no megaly, no rebound, no guarding, normal bowel sounds.] Extremities: The patient has +1 pitting edema lower extremities bilaterally. No cyanosis. No clubbing. Good pulses bilaterally upper and lower extremities. Neurological Exam: [No focal neurologic deficit. Patient on mechanical ventilation, however able to follow all instructions when the propofol was weaned down. Lymphatics: No Lymphadenopathy. Psychiatric: Normal mood affect and mental status examination.] Neurologically the patient is awake and alert and is no focal neurological deficits. Examination of the skin revealed no evidence of significant rashes, suspicious appearing nevi or other concerning lesions. - Labs CBC & Chem 7: 12/08/17 05:16 12/08/17 05:16 Labs: Abnormal Lab Results - Last 24 Hours (Table) 12/07/17 12/07/17 12/07/17 Range/Units 11:29 17:01 20:57 WBC (3.8-10.6) k/uL RDW (11.5-15.5) % Neutrophils # (1.3-7.7) k/uL Monocytes # (0-1.0) k/uL PT (9.0-12.0) sec INR (<1.2) BUN (7-17) mg/dL Creatinine (0.52-1.04) mg/dL POC Glucose (mg/dL) 120 H 170 H 180 H (75-99) mg/dL Phosphorus (2.5-4.5) mg/dL Magnesium (1.6-2.3) mg/dL Total Protein (6.3-8.2) g/dL Albumin (3.5-5.0) g/dL 12/08/17 12/08/17 12/08/17 Range/Units 05:16 05:16 05:16 WBC 15.9 H (3.8-10.6) k/uL RDW 16.1 H (11.5-15.5) % Neutrophils # 12.9 H (1.3-7.7) k/uL Monocytes # 1.3 H (0-1.0) k/uL PT 13.9 H (9.0-12.0) sec INR 1.5 H (<1.2) BUN 111 H* (7-17) mg/dL Creatinine 2.40 H (0.52-1.04) mg/dL POC Glucose (mg/dL) (75-99) mg/dL Phosphorus (2.5-4.5) mg/dL Magnesium (1.6-2.3) mg/dL Total Protein 5.7 L (6.3-8.2) g/dL Albumin 3.4 L (3.5-5.0) g/dL 12/08/17 Range/Units 05:16 WBC (3.8-10.6) k/uL RDW (11.5-15.5) % Neutrophils # (1.3-7.7) k/uL Monocytes # (0-1.0) k/uL PT (9.0-12.0) sec INR (<1.2) BUN (7-17) mg/dL Creatinine (0.52-1.04) mg/dL POC Glucose (mg/dL) (75-99) mg/dL Phosphorus 5.2 H (2.5-4.5) mg/dL Magnesium 2.5 H (1.6-2.3) mg/dL Total Protein (6.3-8.2) g/dL Albumin (3.5-5.0) g/dL Assessment and Plan Plan: Assessment: 1 acute hypoxic respiratory failure secondary to flash pulmonary edema. The patient was initially intubated and placed on a mechanical ventilator. Subsequent she was weaned off and extubated. Yesterday she had another episode of flash pulmonary edema from which she recovered without the need to intubate. She was managed by and invasive possible pressure ventilation. Currently she is on a combination of Bumex and Aldactone. She is also on amiodarone in regards to her intermittent episodes of nonsustained V. tach and frequent PVCs. She is also on beta blockers and the patient is receiving metoprolol 75 mg by mouth 3 times a day. Hemodynamically stable. She is on no pressors for now. Cardiology is on the case. On today's evaluation of 12/07/2017, the patient's pulmonary status is stable. The patient is not having any significant respiratory distress at rest. She is on 40s about 2 by nasal cannula. She is being monitored from a cardiac standpoint that she is having occasional PVCs. She is also on a combination of Bumex and Aldactone as diuretics, warfarin as long-term anticoagulation and the PT/INR is being monitored. Diuretics have been cut down based on concerns of developing renal failure. On 12/08/2017 patient remains stable, she remains in the intensive care, she has had no recurring episodes of V. tach, she has been weaned off the BiPAP support, currently on 2 L per nasal cannula, stable oxygenation above 95%, no dyspnea, no chest pain. Remains on oral diuretics, 2 status post ICD generator change, postoperative day #6 3 intermittent episodes of nonsustained V. tach up to 15 beats. Currently on amiodarone orally. She is also on metoprolol. 4 hypotension secondary to severe cardiomyopathy and LV dysfunction, recovered 5 nonischemic cardiomyopathy and LV dysfunction, with an ejection fraction of less than 20% 6 type 2 diabetes 7 hypothyroidism maintained on Synthroid 8 acute on chronic kidney failure with history of stage III chronic kidney disease, and there is interval rise in the BUN and the creatinine. Nephrology will be consulted. 9 obesity with a BMI 54.7 10 long-term antibiotic ventilation with warfarin with a therapeutic INR. Plan Continue oral diuretics, continue oral prednisone, Coumadin dosing per cardiology, patient has not had any episodes of V. tach, and she is no longer BiPAP dependent, increase activity as tolerated. Today's blood work has been reviewed, and shows slight worsening of the renal profile. Diuretics per cardiology. Continue GI and DVT prophylaxis. Patient remains stable and can probably move out of the intensive care unit today selective care. I performed a history & physical examination of the patient and discussed their management with my nurse practitioner, Rukhsana Goodwin. I reviewed the nurse practitioner's note and agree with the documented findings and plan of care. Lung sounds are positive for some bibasilar crackles. The findings and the impression was discussed with the patient. I attest to the documentation by the nurse practitioner. Time with Patient: Greater than 30
[2017-12-08] MEDS: AMIODARONE 200 MG TAB PO SCH ×3 (08:59→20:07)
[2017-12-08] MEDS: INSULIN ASPART 100 UNIT/ML 1 ML 10 ML VIAL SQ SCH ×5 (08:59→20:15)
[2017-12-08] MEDS: FAMOTIDINE 20 MG TAB PO SCH (09:00)
[2017-12-08] MEDS: hydrALAZINE HCL 25 MG TAB PO SCH ×3 (09:00→23:55)
[2017-12-08] MEDS: BUMETANIDE 1 MG TAB PO SCH ×2 (09:00→17:27)
[2017-12-08] MEDS: METOPROLOL TARTRATE 25 MG TAB PO SCH ×3 (09:00→21:33)
[2017-12-08] MEDS: SPIRONOLACTONE 25 MG TAB PO SCH (09:01)
[2017-12-08] MEDS: predniSONE 10 MG TAB PO SCH (09:01)
[2017-12-08] MEDS: cefTRIAXone IN SWFI 1,000 MG/10 ML SYRINGE IVP SCH (09:06)
--- NOTE | 2017-12-08 10:33 | P.PN ---
Subjective Progress Note Date: 12/08/17 This is a 66-year-old female, known history of severe cardiomyopathy, previous biventricular ICD placement. Patient has chronic severe congestive heart failure class III, patient was brought in yesterday by cardiology/Dr. Chavez for ICD generator change. While in the EP lab, left shoulder incision was made , partial capsulectomy was performed, device was removed, and a new device was connected. As the new device was being connected, patient started complaining of shortness of breath and difficulty breathing. Clinically the patient went into flash pulmonary edema with acute respiratory failure requiring intubation and mechanical ventilation. Patient was admitted to the intensive care unit On 12/04/2017 patient was extubated yesterday. Patient states she is feeling much improved. Patient is currently off the Levophed. Patient remains on amiodarone and Lasix drip. Patient denies chest pain or shortness breath at this time. Patient is being followed cardiology and Dr. Armenta. On 12/05/2017 patient currently resting comfortably in bed. Patient denies chest pain or shortness of breath at this time. Patient remains on amiodarone drip for possible transition to by mouth per cardiology today. Lasix drip has been discontinued and patient back on home dose of Bumex and Aldactone. Patient remains on Rocephin. Cardiology and pulmonary services are following. Patient denies chest pain or shortness of breath. On 12/06/2017 patient is alert and oriented 3 in no apparent distress, she is seen and examined in the intensive care unit, she is maintained on oxygen via nasal cannula and is tolerating well, she denies any chest pain or shortness of breath at this time, there is no cough no nausea or vomiting no abdominal pain and no urinary symptoms. She has chest wall pain at the site of recent pacemaker incision for battery change, otherwise she denies any symptoms at this time. On 12/07/2017 patient is alert and oriented 3 she is seen and examined in ICU complaining of chest wall pain site of incision otherwise she denies any complaints at this time there is no fever or chills no headache no dizziness no chest pain no shortness of breath no cough no nausea or vomiting no abdominal pain and no urinary symptoms On 12/08/2017 patient is alert and oriented 3 patient. Patient remains in the ICU. Patient denies shortness of breath or chest pain at this time. Patient's bun 111 today and creatinine 2.40. Nephrology services were consulted. Patient remains on 2 L of oxygen. Objective - Vital Signs Vital signs: Vital Signs Temp 97.8 F 12/08/17 04:00 Pulse 80 12/08/17 08:17 Resp 20 12/08/17 07:00 BP 119/58 12/08/17 07:00 Pulse Ox 99 12/08/17 07:00 Intake & Output 12/07/17 12/08/17 12/08/17 18:59 06:59 18:59 Intake Total 450 500 Output Total 1390 1030 30 Balance -940 -530 -30 Weight 123.5 kg Intake: Oral 450 500 Output: Urine 1390 1030 30 Other: Voiding Method Indwelling Catheter Indwelling Catheter ABP, PAP, CO, CI - Last Documented Arterial Blood Pressure 135/67 - Exam Head normocephalic Neck supple Lungs diminished bilaterally Heart regular rate and rhythm S1-S2, no rub or gallop Abdomen is soft nontender nondistended positive bowel sounds no hepatosplenomegaly Extremities no edema Neuro alert and orientated to 3 - Labs CBC & Chem 7: 12/08/17 05:16 12/08/17 05:16 Labs: Abnormal Lab Results - Last 24 Hours (Table) 12/07/17 12/07/17 12/07/17 Range/Units 11:29 17:01 20:57 WBC (3.8-10.6) k/uL RDW (11.5-15.5) % Neutrophils # (1.3-7.7) k/uL Monocytes # (0-1.0) k/uL PT (9.0-12.0) sec INR (<1.2) BUN (7-17) mg/dL Creatinine (0.52-1.04) mg/dL POC Glucose (mg/dL) 120 H 170 H 180 H (75-99) mg/dL Phosphorus (2.5-4.5) mg/dL Magnesium (1.6-2.3) mg/dL Total Protein (6.3-8.2) g/dL Albumin (3.5-5.0) g/dL 12/08/17 12/08/17 12/08/17 Range/Units 05:16 05:16 05:16 WBC 15.9 H (3.8-10.6) k/uL RDW 16.1 H (11.5-15.5) % Neutrophils # 12.9 H (1.3-7.7) k/uL Monocytes # 1.3 H (0-1.0) k/uL PT 13.9 H (9.0-12.0) sec INR 1.5 H (<1.2) BUN 111 H* (7-17) mg/dL Creatinine 2.40 H (0.52-1.04) mg/dL POC Glucose (mg/dL) (75-99) mg/dL Phosphorus (2.5-4.5) mg/dL Magnesium (1.6-2.3) mg/dL Total Protein 5.7 L (6.3-8.2) g/dL Albumin 3.4 L (3.5-5.0) g/dL 12/08/17 Range/Units 05:16 WBC (3.8-10.6) k/uL RDW (11.5-15.5) % Neutrophils # (1.3-7.7) k/uL Monocytes # (0-1.0) k/uL PT (9.0-12.0) sec INR (<1.2) BUN (7-17) mg/dL Creatinine (0.52-1.04) mg/dL POC Glucose (mg/dL) (75-99) mg/dL Phosphorus 5.2 H (2.5-4.5) mg/dL Magnesium 2.5 H (1.6-2.3) mg/dL Total Protein (6.3-8.2) g/dL Albumin (3.5-5.0) g/dL Assessment and Plan Assessment: 1 acute hypoxic respiratory failure requiring intubation and mechanical ventilation secondary to flash pulmonary edema secondary to severe cardiomyopathy and LV dysfunction. Patient has been extubated. Patient remains on Solu-Medrol, DuoNeb and pulmicort. Chest x-ray completed this morning showing interval extubation. Cardiomegaly and chronic emphysematous changes. Dr. Armenta for pulmonary services are following. Lasix drip has been discontinued patient is currently on bumex and Aldactone. 2 status post ICD generator change, postoperative day #3. 3 intermittent ventricular ectopy, being addressed by cardiology on the case. Patient remains on amiodarone. Cardiolgoy services are following. Possible transition to by mouth amiodarone today per cardiology 4 hypotension secondary to severe cardiomyopathy and LV dysfunction. patient currently off the Levophed drip. Resolved 5 nonischemic cardiomyopathy and LV dysfunction. Ejection fraction of less than 20%. 6 type 2 diabetes. Continue home Levemir dose of 41 units and sliding scale insulin. 7 hypothyroidism maintained on Synthroid 8 acute on chronic kidney failure with history of stage III chronic kidney disease. Bun 59, creatinine 1.90. Continue to monitor patient closely. BUN 111 and creatinine 2.40. Nephrology services are consulted 9 suspect some component of acute kidney injury and acute tubular necrosis. Secondary to hypotension. 10. Leukocytosis. White blood cell elevated at 20.3. Improved to 14.2. Patient remains on Rocephin for antibiotics. WBC 15.9 patient. Patient remains on Rocephin for antibiotics and prednisone 30 mg daily. 11. History of paroxysmal atrial fibrillation. Patient currently on Coumadin managed by cardiology. INR today 1.5. Cardiology managing GI prophylaxis Pepcid. DVT Prophylaxis his Coumadin I performed an examination of the patient and discussed their management with the Nurse Practitioner. I have reviewed the Nurse Practitioner's notes and agree with the documented findings and plan of care
[2017-12-08 12:18] LABS: Glucose,Whole Blood 119 mg/dL (75-99)
--- NOTE | 2017-12-08 14:11 | P.NPCON ---
History of Present Illness - Reason for Consult acute renal failure, chronic renal failure - History of Present Illness Reason for consultation: Acute kidney injury on chronic kidney disease History of present illness: Patient is a 66-year-old female seen in renal consultation for acute kidney injury on chronic kidney disease. Patient has chronic kidney disease stage IIIB secondary to diabetic kidney disease and cardiorenal syndrome with baseline creatinine in the range of 1.5-2. Her creatinine on admission was 1.7 and is up to 2.4 today. Patient presented to the hospital for defibrillator generator change and developed flash pulmonary edema. She was subsequently intubated and has received aggressive diuresis over the last few days. She is currently maintained on oral Bumex. Patient has systolic CHF with ejection fraction of less than 20%. Oral intake is good. Denies vomiting or diarrhea. Admits to good urine output. Does admit to taking Motrin about twice weekly. Hemodynamically stable. Vital signs are stable. General: The patient appeared well nourished and normally developed. HEENT: Head exam is unremarkable. Neck is without jugular venous distension. LUNGS: Lungs are clear to auscultation and percussion. Breath sounds decreased. HEART: Rate and Rhythm are regular. First and second heart sounds normal. No murmurs, rubs or gallops. ABDOMEN: Abdominal exam reveals normal bowel sounds. Non-tender and non- distended. No evidence of peritonitis. EXTREMITITES: No clubbing, cyanosis, or edema. Past Medical History Past Medical History: Asthma, Coronary Artery Disease (CAD), Heart Failure, COPD , Diabetes Mellitus, Fibromyalgia, Hyperlipidemia, Hypertension, Renal Disease, Thyroid Disorder Additional Past Medical History / Comment(s): RENAL INSUFFICENCY,GOUT,ARRYTHMIA , CARDIOMYOPATHY,VARICOSE VEINS,HX PNEUMONIA & BRONCHITIS, HEMMRROIDS, STRESS INCONT OF URINE, ANEMIA; See DR IGNACIO'S H&P History of Any Multi-Drug Resistant Organisms: None Reported Past Surgical History: Heart Catheterization, Tubal Ligation Additional Past Surgical History / Comment(s): 3 LEAD PACEMAKER AND DEFIB, RT BREAST LUMPECTOMY(BENIGN) HEART CATH 1996, BRONCHOSCOPY , Past Anesthesia/Blood Transfusion Reactions: No Reported Reaction Type of Cardiac Device: Permanent Pacemaker Device Placement Date:: Smoking Status: Former smoker - Past Family History Father Family Medical History: Congestive Heart Failure (CHF), Coronary Artery Disease (CAD) Medications and Allergies Home Medications Medication Instructions Recorded Confirmed Type Montelukast [Singulair] 10 mg PO HS 09/23/13 12/02/17 History Simvastatin [Zocor] 40 mg PO HS 09/23/13 12/02/17 History Warfarin Sodium [Coumadin] 6 mg PO SUTUTH 09/23/13 12/02/17 History hydrALAZINE HCL [Apresoline] 25 mg PO TID 09/23/13 12/02/17 History Levothyroxine Sodium [Synthroid] 25 mcg PO DAILY@0630 #30 tab 09/26/13 12/02/17 Rx Allopurinol [Zyloprim] 300 mg PO DAILY 12/20/15 12/02/17 History Losartan Potassium [Cozaar] 50 mg PO DAILY 12/20/15 12/02/17 History Metoprolol Tartrate [Lopressor] 100 mg PO BID 12/20/15 12/02/17 History Spironolactone [Aldactone] 25 mg PO DAILY 12/20/15 12/02/17 History Warfarin Sodium [Coumadin] 3 mg PO [id number] 12/20/15 12/02/17 History Albuterol Inhaler [Ventolin Hfa 1 - 2 puff INHALATION RT-Q6H PRN 12/21/15 Rx Inhaler] #1 inhaler Bumetanide [BUMEX] 1 mg PO HS 11/24/17 12/02/17 History Bumetanide [Bumex] 2 mg PO [id number] 11/24/17 12/02/17 History Insulin Glargine,Hum.rec.anlog 41 unit SQ 12/02/17 12/02/17 History [Basaglar Kwikpen U-100] Allergies Allergy/AdvReac Type Severity Reaction Status Date / Time sotalol Allergy Rapid Verified 12/02/17 19:11 Heart Rate ADHESIVE TAPE Allergy Itching Uncoded 12/02/17 14:00 Physical Exam Vitals: Vital Signs Temp Pulse Resp BP Pulse Ox 12/08/17 13:00 76 20 104/52 96 12/08/17 12:00 98.2 F 75 24 109/63 96 12/08/17 11:49 66 12/08/17 11:43 57 L 12/08/17 11:00 78 23 126/61 96 12/08/17 10:00 74 22 105/76 96 12/08/17 09:00 71 10 L 110/73 97 12/08/17 08:17 80 12/08/17 08:04 75 12/08/17 08:00 98.1 F 76 36 H 126/53 96 12/08/17 07:00 81 20 119/58 99 12/08/17 06:00 76 20 122/97 98 12/08/17 05:00 75 21 117/58 98 12/08/17 04:00 97.8 F 80 22 127/67 98 12/08/17 03:30 74 21 119/55 97 12/08/17 03:00 76 24 134/60 98 12/08/17 02:30 75 20 114/60 97 12/08/17 02:00 80 22 134/61 97 12/08/17 01:30 80 21 120/61 98 12/08/17 01:00 77 21 115/62 98 12/08/17 00:30 82 20 115/61 96 12/08/17 00:00 98.0 F 78 23 127/63 98 12/07/17 23:30 76 20 108/61 96 12/07/17 23:10 81 21 112/56 97 12/07/17 23:00 75 21 112/56 95 12/07/17 22:30 74 20 111/56 96 12/07/17 22:00 76 21 113/57 96 12/07/17 21:30 81 19 84/49 96 12/07/17 21:00 80 24 103/67 96 12/07/17 20:30 98.1 F 79 21 109/57 96 12/07/17 20:26 88 12/07/17 20:01 84 12/07/17 20:00 81 21 102/47 97 12/07/17 19:30 79 20 113/66 97 12/07/17 19:00 78 17 92/57 99 12/07/17 18:30 80 24 111/56 97 12/07/17 18:00 81 24 100/42 96 12/07/17 17:30 87 22 115/60 96 12/07/17 17:00 78 16 111/60 96 12/07/17 16:30 84 27 H 101/58 96 12/07/17 16:00 98.4 F 81 22 120/61 100 12/07/17 15:58 86 12/07/17 15:48 79 100 12/07/17 15:30 74 20 116/57 97 12/07/17 15:00 79 22 109/59 98 12/07/17 14:30 86 22 119/54 98 Intake and Output 12/07/17 12/08/17 12/08/17 22:59 06:59 14:59 Intake Total 450 500 Output Total 850 630 555 Balance -400 -130 -555 Intake: Oral 450 500 Output: Urine 850 630 555 Other: Voiding Method Indwelling Catheter Indwelling Catheter Weight 123.5 kg Results - Lab Results Most recent lab results ABG pH 7.44 (7.35-7.45) 12/03/17 09:21 ABG pCO2 36 mmHg (35-45) 12/03/17 09:21 ABG pO2 78 mmHg (83-108) L 12/03/17 09:21 ABG HCO3 24 mmol/L (21-25) 12/03/17 09:21 ABG O2 Saturation 97.0 % (94-97) 12/03/17 09:21 Calcium 8.9 mg/dL (8.4-10.2) 12/08/17 05:16 Phosphorus 5.2 mg/dL (2.5-4.5) H 12/08/17 05:16 Magnesium 2.5 mg/dL (1.6-2.3) H 12/08/17 05:16 12/08/17 05:16 12/08/17 05:16 Assessment and Plan Plan: Assessment: 1. Nonoliguric acute kidney injury mostly prerenal secondary to diuresis. Creatinine up to 2.4 today. 2. Chronic kidney disease stage III secondary to diabetic kidney disease and cardiorenal syndrome with baseline creatinine in the range of 1.5-2. 3. Pulmonary edema/fluid overload. Improved with diuresis. 4. Systolic CHF with ejection fraction of less than 20%. 5. Diabetes mellitus. Plan: Hold tonight's dose of Bumex. Check urinalysis. Encouraged oral intake. Avoid nephrotoxic agents and hypotensive episodes. Continue to monitor renal function and urine output. Repeat electrolytes in the morning. Thank you for the consultation. I will continue to follow the patient during her hospital stay.
--- NOTE | 2017-12-08 14:12 | PN ---
PROGRESS NOTE This patient remains hemodynamically stable. She had a good night without any symptoms of shortness of breath. The patient blood pressure remains in the range of 100-120. Urine output remains good. The patient's creatinine is 2.4. BUN is 111. First and second heart sounds are heard. Lungs examination reveals the wheezing is improved. We will restart the hydralazine 25 mg b.i.d. and hold it to keep the patient's blood pressure is less than 90 systolic. The patient would be transferred to the selective care unit and we will ambulate the patient and physical therapy will be started. MMODL / IJN: [id number] /
[2017-12-08 17:21] LABS: Glucose,Whole Blood 189 mg/dL (75-99)
[2017-12-08] MEDS: MONTELUKAST 10 MG TAB PO SCH (20:06)
[2017-12-08] MEDS: ATORVASTATIN 20 MG TAB PO SCH (20:06)
[2017-12-08 20:22] LABS: Glucose,Whole Blood 200 mg/dL (75-99)
[2017-12-08] MEDS: INSULIN DETEMIR 100 UNIT/ML 10 ML VIAL SQ SCH (20:53)
[2017-12-08 21:53] LABS: Appearance,Urine Clear (Clear); Bacteria,Urine Rare /hpf; Bilirubin,Urine Negative (Negative); Blood,Urine Large (Negative); Color,Urine Light Yellow; Glucose,Urine (UA) Negative (Negative); Hyaline Casts,Urine 57 /lpf (0-2); Ketones,Urine Negative (Negative); Leukocyte Esterase,Urine Negative (Negative); Mucus,Urine Occasional /hpf; Nitrite,Urine Negative (Negative); PH, Urine 5.5 (5.0-8.0); Protein,Urine Negative (Negative); RBC,Urine >182 /hpf (0-5); Specific Gravity,Urine 1.011 (1.001-1.035); Squamous Epithelial Cell,Urine 1 /hpf (0-4); Urobilinogen,Urine <2.0 mg/dL (<2.0); WBC,Urine 5 /hpf (0-5)
[2017-12-09 05:09] LABS: Anisocytosis Slight; Basophils % (A) 0 %; Eosinophils % (A) 0 %; HCT 35.7 % (34.0-46.0); HGB 11.4 gm/dL (11.4-16.0); Lymphocytes # (A) 1.1 k/uL (1.0-4.8); Lymphocytes % (A) 8 %; MCHC 31.8 g/dL (31.0-37.0); MCV 84.9 fL (80.0-100.0); Mean Platelet Volume 8.6; Monocytes # (A) 1.3 k/uL (0-1.0); Monocytes % (A) 9 %; Neutrophils # (A) 11.8 k/uL (1.3-7.7); Neutrophils % (A) 81 %; Platelet Count 167 k/uL (150-450); RBC 4.21 m/uL (3.80-5.40); RDW 16.3 % (11.5-15.5); WBC 14.6 k/uL (3.8-10.6)
[2017-12-09 05:12] LABS: INR 1.8 (<1.2); Prothrombin Time 16.2 sec (9.0-12.0)
[2017-12-09 05:29] LABS: Calcium 8.8 mg/dL (8.4-10.2); Potassium 4.1 mmol/L (3.5-5.1)
[2017-12-09] MEDS: LEVOTHYROXINE 25 MCG TAB PO SCH (06:52)
[2017-12-09] MEDS: NITROGLYCERIN OINT 1 INCH/GM PACKET TOPICAL SCH ×4 (06:52→23:37)
[2017-12-09] MEDS: BUDESONIDE 1 MG/2 ML NEBU INHALATION SCH ×2 (07:22→20:06)
[2017-12-09] MEDS: IPRATROPIUM-ALBUTEROL 3 ML NEB INHALATION SCH ×5 (07:22→20:06)
[2017-12-09 08:29] LABS: Glucose,Whole Blood 94 mg/dL (75-99)
[2017-12-09] MEDS: INSULIN ASPART 100 UNIT/ML 1 ML 10 ML VIAL SQ SCH ×4 (08:46→20:36)
[2017-12-09] MEDS: AMIODARONE 200 MG TAB PO SCH ×3 (08:47→22:25)
[2017-12-09] MEDS: BUMETANIDE 1 MG TAB PO SCH ×2 (08:47→16:02)
[2017-12-09] MEDS: SPIRONOLACTONE 25 MG TAB PO SCH (08:48)
[2017-12-09] MEDS: predniSONE 10 MG TAB PO SCH (08:48)
[2017-12-09] MEDS: FAMOTIDINE 20 MG TAB PO SCH (08:48)
--- NOTE | 2017-12-09 08:51 | P.PN ---
Subjective Progress Note Date: 12/09/17 Principal diagnosis: Acute hypoxic respiratory failure secondary to flash pulmonary edema, nonischemic cardiomyopathy, LV dysfunction, nonsustained V. tach This is a 66-year-old female, known history of severe cardiomyopathy, previous biventricular ICD placement. Patient has chronic severe congestive heart failure class III, patient was brought in yesterday by cardiology/Dr. Chavez for ICD generator change. While in the EP lab, left shoulder incision was made , partial capsulectomy was performed, device was removed, and a new device was connected. As the new device was being connected, patient started complaining of shortness of breath and difficulty breathing. Clinically the patient went into flash pulmonary edema with acute respiratory failure requiring intubation and mechanical ventilation. Patient was admitted to the intensive care unit and I was asked to see her on consultation. Overnight, the patient required pressors, she also required Lasix drip. I reviewed the chest x-ray shortly after the patient was intubated, and she was clearly in pulmonary edema. When I saw the patient this morning, her chest x-ray showed dramatic improvement, however she was still on 9 g of levo fed. Patient was also on the following vent settings assist control rate of 24 tidal volume of 400 FiO2 of 50% and PEEP of 5. ABG this morning showed a pO2 of 7 pCO2 of 36 and pH of 7.44. Labs , medications, ABG, were all reviewed chest x-ray was also reviewed. Patient was already on propofol which I have discontinued, awaken the patient, and she was very appropriate and followed all instructions properly. Then I proceeded to a short trial of weaning utilizing pressure support of 8 and CPAP. Patient did well for about half an hour while I was at bedside. Then I proceeded to extubating the patient. In the meantime I kept the patient on her Lasix drip, and she is back on her usual cardiac meds. Norepinephrine will be titrated down and hopefully discontinued soon. Patient had an excellent urine output, and her labs were basically unremarkable. She was noted however to have some ventricular ectopy on levo fed, and she was on amiodarone overnight. On today's evaluation of 12/04/2017, I'm seeing this patient for a follow-up. The patient day intensive care unit. The patient has been extubated. Chest x- ray shows improvement in the volume status. Currently the patient on Bumex 2 mg by mouth twice a day. The patient is a negative fluid balance. The patient is improving. The patient is currently on an amiodarone drip as the patient has developed episodes of nonsustained V. tach. These episodes are ranging between 2-3 beats up to 15 beats. The underlying rhythm is atrial fibrillation with a controlled rate. She is also on metoprolol 25 mg by mouth twice a day. She is on warfarin for long-term anticoagulation and the patient's INR is slightly supratherapeutic at 4.2. She has chronic renal failure creatinine is stable at 1.8. The patient has severe nonischemic cardiomyopathy with an ejection fraction of less than 20%. She underwent a recent AICD generator change and her postoperative course was complicated by flash pulmonary edema. Patient was briefly on the mechanical ventilator from which she was weaned off after her volume status was optimized. No cough. No sputum production. No altered mentation. No 70 chronic hypoxic respiratory failure. No history of obstructive sleep apnea. She is morbidly obese. Her current BMI 54.7. The patient is seen today on 12/05/2017 in follow-up in the intensive care unit. She is awake and alert in no acute distress. She denies any worsening shortness of breath, cough or congestion. She is breathing easier today as compared to yesterday. Less wheezing. She is maintaining good O2 saturations in the mid 90s on 2 L/m per nasal cannula. She's been afebrile. White count 19.7. Hemoglobin 10.5. INR 2.2. Creatinine 1.90. She remains on empiric antibiotics in the form of ceftriaxone. She is continued on amiodarone drip per cardiology. On 12/06/2017, I'm seeing this patient for a follow-up. Events from yesterday were noted. The patient went into acute pulmonary edema and this occurred as the patient was placed flat for removal of the arterial sheath. She immediately was placed on a BiPAP which was given a dose of Lasix 80 mg IV push. She was placed on a combination of morphine and nitroglycerin. Nitroglycerin was given to her in the form of a patch. Ultimately she improved. She diuresed. The patient subsequently improved. She was weaned off the BiPAP and she was placed back in oxygen currently is on oxygen by nasal cannula at 5-6 L. She is able to talk normally. No signs of any respiratory distress. She is in a bed at 30 head of bed elevation. She is having occasional PVCs. Amiodarone has been weaned and the patient is currently on oral amiodarone. No episodes of V. tach. She is on Bumex 2 mg by mouth twice a day. She is on no pressors. She is also on Aldactone. The IV Solu Medrol will be weaned down to oral prednisone. The venous sheath will be also removed. On 12/07/2017 the patient remains in intensive care unit. The patient is calm and comfortable. No signs of any respiratory distress. No fever or chills. She is being diuresed with oral Bumex. He will noted that the patient's creatinine is on the rise and the BUN is also on the rise. Nephrology consultation was obtained. Occasional PVCs. On the hall monitor. No worsening and oxygenation. No chest pain. No altered mentation. She is able to sit up on a chair as she did yesterday. No other significant events overnight. The patient is currently on 4 L about 2 by nasal cannula with a pulse ox of 97%. He is also on antibiotic ventilation with warfarin. PT/INR is subtherapeutic at this point in time On 12/08/2017 patient seen in follow-up in the intensive care unit, she is awake alert, in no acute distress, this is postop day 6 status post ICD generator change. denies any dyspnea, currently on 2 L per nasal cannula with pulse ox of 99%, she is afebrile, hemodynamically stable. No new chest x-rays today, yesterday's chest x-ray has been reviewed, and shows improving changes of congestive heart failure, left pleural effusion and atelectasis. No chest pain, no episodes of tachyarrhythmias. No altered mentation. She is off the BiPAP support. She is currently on oral Bumex she is in -1470 mL fluid balance over the last 24 hours. Lung sounds reveals bibasilar crackles, overall breath sounds are diminished. IV fluids have been hep-locked. His labs have been reviewed, WBC is 15.9, hemoglobin is 11.5, B1 is 111, creatinine is 2.4. REnal profile has slightly worsened, INR is still subtherapeutic at 1.5. On 12/09/2017 patient seen again in follow-up in intensive care unit. Did not require BiPAP support last night, currently on 2 L per nasal cannula, pulse ox is 92%, she is calm and comfortable, in no distress. Afebrile, vital signs are stable. Lung sounds are clear, no rhonchi, no wheezes no crackles. IV 0.9 normal saline at a rate of 20 ML per hour. Continues on oral diuretics, she is maintaining negative net fluid balance. -1470 mL over last 24 hours. Today's chest x-ray has been reviewed, and shows improving changes of congestive heart failure. Renal profile is slightly improved. BUN is 112, creatinine is 2.30. Electrolytes are relatively unremarkable. No fever, no chills. Patient is in paced rhythm, no episodes of V. tach, currently on oral amiodarone. From pulmonary standpoint patient remains stable, and could transfer out of the intensive care to [facility] (formerly [facility] Objective - Vital Signs Vital signs: Vital Signs Temp 97.7 F 12/09/17 08:00 Pulse 72 12/09/17 08:00 Resp 11 L 12/09/17 08:00 BP 104/58 12/09/17 08:00 Pulse Ox 92 L 12/09/17 08:00 Intake & Output 12/08/17 12/09/17 12/09/17 18:59 06:59 18:59 Intake Total 400 640 Output Total 850 800 Balance -450 -160 Weight 122.9 kg Intake: Oral 400 640 Output: Urine 850 800 Other: Voiding Method Indwelling Catheter Indwelling Catheter ABP, PAP, CO, CI - Last Documented Arterial Blood Pressure 135/67 - Exam Physical Exam: Revealed a 66-year-old female obese. Awake and alert and answering questions and following commands without any major difficulties. Head: Atraumatic, normocephalic.Head exam was generally normal. There was no scleral icterus or corneal arcus. Mucous membranes were moist. HEENT:Neck was supple and without jugular venous distension, thyromegaly, or carotid bruits. Carotids were easily palpable bilaterally. There was no adenopathy. The patient is a Mallampati class IV was significant crowding of the posterior oropharynx Chest: Clear breath sounds, no rhonchi, no wheezes, no rales Cardiac Exam: [Irregular rhythm Normal S1 and S2, no S3 gallop, 2/6 systolic murmur thought the precordium. Abdomen: [Obese, Soft, nontender, no megaly, no rebound, no guarding, normal bowel sounds.] Extremities: The patient has +1 pitting edema lower extremities bilaterally. No cyanosis. No clubbing. Good pulses bilaterally upper and lower extremities. Neurological Exam: [No focal neurologic deficit. Psychiatric: Normal mood affect and mental status examination.] Neurologically the patient is awake and alert and is no focal neurological deficits. Examination of the skin revealed no evidence of significant rashes, suspicious appearing nevi or other concerning lesions. - Labs CBC & Chem 7: 12/09/17 04:45 12/09/17 04:45 Labs: Abnormal Lab Results - Last 24 Hours (Table) 12/08/17 12/08/17 12/08/17 Range/Units 11:54 17:19 20:09 WBC (3.8-10.6) k/uL RDW (11.5-15.5) % Neutrophils # (1.3-7.7) k/uL Monocytes # (0-1.0) k/uL PT (9.0-12.0) sec INR (<1.2) Sodium (137-145) mmol/L BUN (7-17) mg/dL Creatinine (0.52-1.04) mg/dL Glucose (74-99) mg/dL POC Glucose (mg/dL) 119 H 189 H 200 H (75-99) mg/dL Urine Blood (Negative) Urine RBC (0-5) /hpf Urine Bacteria (None) /hpf Hyaline Casts (0-2) /lpf Urine Mucus (None) /hpf 12/08/17 12/09/17 12/09/17 Range/Units 21:34 04:45 04:45 WBC 14.6 H (3.8-10.6) k/uL RDW 16.3 H (11.5-15.5) % Neutrophils # 11.8 H (1.3-7.7) k/uL Monocytes # 1.3 H (0-1.0) k/uL PT 16.2 H (9.0-12.0) sec INR 1.8 H (<1.2) Sodium (137-145) mmol/L BUN (7-17) mg/dL Creatinine (0.52-1.04) mg/dL Glucose (74-99) mg/dL POC Glucose (mg/dL) (75-99) mg/dL Urine Blood Large H (Negative) Urine RBC >182 H (0-5) /hpf Urine Bacteria Rare H (None) /hpf Hyaline Casts 57 H (0-2) /lpf Urine Mucus Occasional H (None) /hpf 12/09/17 Range/Units 04:45 WBC (3.8-10.6) k/uL RDW (11.5-15.5) % Neutrophils # (1.3-7.7) k/uL Monocytes # (0-1.0) k/uL PT (9.0-12.0) sec INR (<1.2) Sodium 135 L (137-145) mmol/L BUN 112 H* (7-17) mg/dL Creatinine 2.30 H (0.52-1.04) mg/dL Glucose 108 H (74-99) mg/dL POC Glucose (mg/dL) (75-99) mg/dL Urine Blood (Negative) Urine RBC (0-5) /hpf Urine Bacteria (None) /hpf Hyaline Casts (0-2) /lpf Urine Mucus (None) /hpf Assessment and Plan Plan: Assessment: 1 acute hypoxic respiratory failure secondary to flash pulmonary edema. The patient was initially intubated and placed on a mechanical ventilator. Subsequent she was weaned off and extubated. Yesterday she had another episode of flash pulmonary edema from which she recovered without the need to intubate. She was managed by and invasive possible pressure ventilation. Currently she is on a combination of Bumex and Aldactone. She is also on amiodarone in regards to her intermittent episodes of nonsustained V. tach and frequent PVCs. She is also on beta blockers and the patient is receiving metoprolol 75 mg by mouth 3 times a day. Hemodynamically stable. She is on no pressors for now. Cardiology is on the case. On today's evaluation of 12/07/2017, the patient's pulmonary status is stable. The patient is not having any significant respiratory distress at rest. She is on 40s about 2 by nasal cannula. She is being monitored from a cardiac standpoint that she is having occasional PVCs. She is also on a combination of Bumex and Aldactone as diuretics, warfarin as long-term anticoagulation and the PT/INR is being monitored. Diuretics have been cut down based on concerns of developing renal failure. On 12/08/2017 patient remains stable, she remains in the intensive care, she has had no recurring episodes of V. tach, she has been weaned off the BiPAP support, currently on 2 L per nasal cannula, stable oxygenation above 95%, no dyspnea, no chest pain. Remains on oral diuretics, On 12/09/2017 patient remains stable, she could be transferred out of the intensive care today to selective care. No further episodes of recurrent V. tach, remains on oral amiodarone, continues on oral diuretics, and continues in negative fluid balance. 2 status post ICD generator change, postoperative day #7 3 intermittent episodes of nonsustained V. tach up to 15 beats. Currently on amiodarone orally. She is also on metoprolol. 4 hypotension secondary to severe cardiomyopathy and LV dysfunction, recovered 5 nonischemic cardiomyopathy and LV dysfunction, with an ejection fraction of less than 20% 6 type 2 diabetes 7 hypothyroidism maintained on Synthroid 8 acute on chronic kidney failure with history of stage III chronic kidney disease, and there is interval rise in the BUN and the creatinine. Nephrology will be consulted. 9 obesity with a BMI 54.7 10 long-term antibiotic ventilation with warfarin with a therapeutic INR. Plan Continue current medical treatment, continue oral diuretics, prednisone, nebulized treatments, empiric antibiotics. His chest x-ray has been reviewed, shows continued improvement of congestive heart failure. Patient remains stable , no recurrent episodes of VT, increase activity as tolerated. Transferred to selective care today. I performed a history & physical examination of the patient and discussed their management with my nurse practitioner, Rukhsana Goodwin. I reviewed the nurse practitioner's note and agree with the documented findings and plan of care. Lung sounds are clear. The findings and the impression was discussed with the patient. I attest to the documentation by the nurse practitioner. Time with Patient: Greater than 30
--- NOTE | 2017-12-09 08:53 | XR ---
EXAMINATION TYPE: XR chest 1V portable DATE OF EXAM: 12/09/2017 HISTORY: Shortness of breath. COMPARISON: December 06, 2017 TECHNIQUE: Single view of the chest is submitted. FINDINGS: Demonstrated are scattered senescent parenchymal change. There is no evidence for focal infiltrate. The heart is stable. Hilar and mediastinal structures are within normal limits. Degenerative changes are seen of the dorsal spine. IMPRESSION: 1. Stable chest.
[2017-12-09] MEDS: cefTRIAXone IN SWFI 1,000 MG/10 ML SYRINGE IVP SCH (09:38)
[2017-12-09] MEDS: METOPROLOL TARTRATE 25 MG TAB PO SCH ×3 (09:38→22:25)
--- NOTE | 2017-12-09 10:37 | P.PN ---
Subjective Progress Note Date: 12/09/17 This is a 66-year-old female, known history of severe cardiomyopathy, previous biventricular ICD placement. Patient has chronic severe congestive heart failure class III, patient was brought in yesterday by cardiology/Dr. Chavez for ICD generator change. While in the EP lab, left shoulder incision was made , partial capsulectomy was performed, device was removed, and a new device was connected. As the new device was being connected, patient started complaining of shortness of breath and difficulty breathing. Clinically the patient went into flash pulmonary edema with acute respiratory failure requiring intubation and mechanical ventilation. Patient was admitted to the intensive care unit On 12/04/2017 patient was extubated yesterday. Patient states she is feeling much improved. Patient is currently off the Levophed. Patient remains on amiodarone and Lasix drip. Patient denies chest pain or shortness breath at this time. Patient is being followed cardiology and Dr. Armenta. On 12/05/2017 patient currently resting comfortably in bed. Patient denies chest pain or shortness of breath at this time. Patient remains on amiodarone drip for possible transition to by mouth per cardiology today. Lasix drip has been discontinued and patient back on home dose of Bumex and Aldactone. Patient remains on Rocephin. Cardiology and pulmonary services are following. Patient denies chest pain or shortness of breath. On 12/06/2017 patient is alert and oriented 3 in no apparent distress, she is seen and examined in the intensive care unit, she is maintained on oxygen via nasal cannula and is tolerating well, she denies any chest pain or shortness of breath at this time, there is no cough no nausea or vomiting no abdominal pain and no urinary symptoms. She has chest wall pain at the site of recent pacemaker incision for battery change, otherwise she denies any symptoms at this time. On 12/07/2017 patient is alert and oriented 3 she is seen and examined in ICU complaining of chest wall pain site of incision otherwise she denies any complaints at this time there is no fever or chills no headache no dizziness no chest pain no shortness of breath no cough no nausea or vomiting no abdominal pain and no urinary symptoms On 12/08/2017 patient is alert and oriented 3 patient. Patient remains in the ICU. Patient denies shortness of breath or chest pain at this time. Patient's bun 111 today and creatinine 2.40. Nephrology services were consulted. Patient remains on 2 L of oxygen. On 12/09/2017 patient is alert and oriented 3 sitting in chair. Patient remains in intensive care unit but has been ordered to selective care per critical care team. Patient is eager to go home. Nephrology has been consulted. Creatinine today 2.30 and BUN 112. patient currently on room air. Patient denies chest pain or shortness of breath. Patient denies nausea vomiting or diarrhea. Patient denies any urinary symptoms at this time. Objective - Vital Signs Vital signs: Vital Signs Temp 97.7 F 12/09/17 08:00 Pulse 75 12/09/17 09:00 Resp 20 12/09/17 09:00 BP 119/57 12/09/17 09:00 Pulse Ox 92 L 12/09/17 08:00 Intake & Output 12/08/17 12/09/17 12/09/17 18:59 06:59 18:59 Intake Total 400 640 100 Output Total 850 800 150 Balance -450 -160 -50 Weight 122.9 kg 122.9 kg Intake: Oral 400 640 100 Output: Urine 850 800 150 Other: Voiding Method Indwelling Catheter Indwelling Catheter Indwelling Catheter ABP, PAP, CO, CI - Last Documented Arterial Blood Pressure 135/67 - Exam Head normocephalic Neck supple Lungs diminished bilaterally Heart regular rate and rhythm S1-S2, no rub or gallop Abdomen is soft nontender nondistended positive bowel sounds no hepatosplenomegaly Extremities S2 +2 nonpitting edema Neuro alert and orientated to 3 - Labs CBC & Chem 7: 12/09/17 04:45 12/09/17 04:45 Labs: Abnormal Lab Results - Last 24 Hours (Table) 12/08/17 12/08/17 12/08/17 Range/Units 11:54 17:19 20:09 WBC (3.8-10.6) k/uL RDW (11.5-15.5) % Neutrophils # (1.3-7.7) k/uL Monocytes # (0-1.0) k/uL PT (9.0-12.0) sec INR (<1.2) Sodium (137-145) mmol/L BUN (7-17) mg/dL Creatinine (0.52-1.04) mg/dL Glucose (74-99) mg/dL POC Glucose (mg/dL) 119 H 189 H 200 H (75-99) mg/dL Urine Blood (Negative) Urine RBC (0-5) /hpf Urine Bacteria (None) /hpf Hyaline Casts (0-2) /lpf Urine Mucus (None) /hpf 12/08/17 12/09/17 12/09/17 Range/Units 21:34 04:45 04:45 WBC 14.6 H (3.8-10.6) k/uL RDW 16.3 H (11.5-15.5) % Neutrophils # 11.8 H (1.3-7.7) k/uL Monocytes # 1.3 H (0-1.0) k/uL PT 16.2 H (9.0-12.0) sec INR 1.8 H (<1.2) Sodium (137-145) mmol/L BUN (7-17) mg/dL Creatinine (0.52-1.04) mg/dL Glucose (74-99) mg/dL POC Glucose (mg/dL) (75-99) mg/dL Urine Blood Large H (Negative) Urine RBC >182 H (0-5) /hpf Urine Bacteria Rare H (None) /hpf Hyaline Casts 57 H (0-2) /lpf Urine Mucus Occasional H (None) /hpf 12/09/17 Range/Units 04:45 WBC (3.8-10.6) k/uL RDW (11.5-15.5) % Neutrophils # (1.3-7.7) k/uL Monocytes # (0-1.0) k/uL PT (9.0-12.0) sec INR (<1.2) Sodium 135 L (137-145) mmol/L BUN 112 H* (7-17) mg/dL Creatinine 2.30 H (0.52-1.04) mg/dL Glucose 108 H (74-99) mg/dL POC Glucose (mg/dL) (75-99) mg/dL Urine Blood (Negative) Urine RBC (0-5) /hpf Urine Bacteria (None) /hpf Hyaline Casts (0-2) /lpf Urine Mucus (None) /hpf Assessment and Plan Assessment: 1 acute hypoxic respiratory failure requiring intubation and mechanical ventilation secondary to flash pulmonary edema secondary to severe cardiomyopathy and LV dysfunction. Patient has been extubated. Patient remains on Solu-Medrol, DuoNeb and pulmicort. Chest x-ray completed this morning showing interval extubation. Cardiomegaly and chronic emphysematous changes. Dr. Armenta for pulmonary services are following. Lasix drip has been discontinued patient is currently on bumex and Aldactone. Chest x-ray completed this a.m. showing stable chest. 2 status post ICD generator change, postoperative day #7. 3 intermittent ventricular ectopy, being addressed by cardiology on the case. Patient remains on amiodarone. Cardiolgoy services are following. Possible transition to by mouth amiodarone today per cardiology. Patient currently on by mouth amiodarone 200 mg 3 times a day 4 hypotension secondary to severe cardiomyopathy and LV dysfunction. patient currently off the Levophed drip. Resolved 5 nonischemic cardiomyopathy and LV dysfunction. Ejection fraction of less than 20%. 6 type 2 diabetes. Continue home Levemir dose of 41 units and sliding scale insulin. 7 hypothyroidism maintained on Synthroid 8 acute on chronic kidney failure with history of stage III chronic kidney disease. Bun 59, creatinine 1.90. Continue to monitor patient closely. BUN 111 and creatinine 2.40. Nephrology services are consulted. Bumex dose held last night per nephrology. Creatinine today 2.30 and bun 112. 9 suspect some component of acute kidney injury and acute tubular necrosis. Secondary to hypotension. 10. Leukocytosis. White blood cell elevated at 20.3. Improved to 14.2. Patient remains on Rocephin for antibiotics. WBC 15.9 patient. Patient remains on Rocephin for antibiotics and prednisone 30 mg daily. 11. History of paroxysmal atrial fibrillation. Patient currently on Coumadin managed by cardiology. INR today 1.8. Cardiology managing. GI prophylaxis Pepcid. DVT Prophylaxis his Coumadin I performed an examination of the patient and discussed their management with the Nurse Practitioner. I have reviewed the Nurse Practitioner's notes and agree with the documented findings and plan of care
--- NOTE | 2017-12-09 10:55 | P.PN ---
Subjective patient is seen in follow-up for acute kidney injury on chronic kidney disease. Patient has chronic kidney disease stage III with baseline creatinine in the range of 1.5-2 secondary to cardiorenal syndrome. Creatinine peaked at 2.4 this admission and is down to 2.3 today. She is noted to have systolic CHF with ejection fraction of 20%. Dyspnea is improved. Oral intake is good. She is nonoliguric. Vital signs are stable. General: The patient appeared well nourished and normally developed. HEENT: Head exam is unremarkable. Neck is without jugular venous distension. LUNGS: Lungs are clear to auscultation and percussion. Breath sounds decreased. HEART: Rate and Rhythm are regular. First and second heart sounds normal. No murmurs, rubs or gallops. ABDOMEN: Abdominal exam reveals normal bowel sounds. Non-tender and non- distended. No evidence of peritonitis. EXTREMITITES: No clubbing, cyanosis, or edema. Objective - Vital Signs Vital signs: Vital Signs Temp 97.7 F 12/09/17 08:00 Pulse 75 12/09/17 09:00 Resp 20 12/09/17 09:00 BP 119/57 12/09/17 09:00 Pulse Ox 92 L 12/09/17 08:00 Intake & Output 12/08/17 12/09/17 12/09/17 18:59 06:59 18:59 Intake Total 400 640 100 Output Total 850 800 150 Balance -450 -160 -50 Weight 122.9 kg 122.9 kg Intake: Oral 400 640 100 Output: Urine 850 800 150 Other: Voiding Method Indwelling Catheter Indwelling Catheter Indwelling Catheter ABP, PAP, CO, CI - Last Documented Arterial Blood Pressure 135/67 - Labs CBC & Chem 7: 12/09/17 04:45 12/09/17 04:45 Labs: Abnormal Lab Results - Last 24 Hours (Table) 12/08/17 12/08/17 12/08/17 Range/Units 11:54 17:19 20:09 WBC (3.8-10.6) k/uL RDW (11.5-15.5) % Neutrophils # (1.3-7.7) k/uL Monocytes # (0-1.0) k/uL PT (9.0-12.0) sec INR (<1.2) Sodium (137-145) mmol/L BUN (7-17) mg/dL Creatinine (0.52-1.04) mg/dL Glucose (74-99) mg/dL POC Glucose (mg/dL) 119 H 189 H 200 H (75-99) mg/dL Urine Blood (Negative) Urine RBC (0-5) /hpf Urine Bacteria (None) /hpf Hyaline Casts (0-2) /lpf Urine Mucus (None) /hpf 12/08/17 12/09/17 12/09/17 Range/Units 21:34 04:45 04:45 WBC 14.6 H (3.8-10.6) k/uL RDW 16.3 H (11.5-15.5) % Neutrophils # 11.8 H (1.3-7.7) k/uL Monocytes # 1.3 H (0-1.0) k/uL PT 16.2 H (9.0-12.0) sec INR 1.8 H (<1.2) Sodium (137-145) mmol/L BUN (7-17) mg/dL Creatinine (0.52-1.04) mg/dL Glucose (74-99) mg/dL POC Glucose (mg/dL) (75-99) mg/dL Urine Blood Large H (Negative) Urine RBC >182 H (0-5) /hpf Urine Bacteria Rare H (None) /hpf Hyaline Casts 57 H (0-2) /lpf Urine Mucus Occasional H (None) /hpf 12/09/17 Range/Units 04:45 WBC (3.8-10.6) k/uL RDW (11.5-15.5) % Neutrophils # (1.3-7.7) k/uL Monocytes # (0-1.0) k/uL PT (9.0-12.0) sec INR (<1.2) Sodium 135 L (137-145) mmol/L BUN 112 H* (7-17) mg/dL Creatinine 2.30 H (0.52-1.04) mg/dL Glucose 108 H (74-99) mg/dL POC Glucose (mg/dL) (75-99) mg/dL Urine Blood (Negative) Urine RBC (0-5) /hpf Urine Bacteria (None) /hpf Hyaline Casts (0-2) /lpf Urine Mucus (None) /hpf Assessment and Plan Plan: Assessment: 1. Nonoliguric acute kidney injury mostly prerenal secondary to diuresis. Creatinine peaked at 2.4 this admission and is 2.3 today. 2. Chronic kidney disease stage III secondary to cardiorenal syndrome with baseline creatinine in the range of 1.5-2. No proteinuria on UA. 3. Pulmonary edema/fluid overload. Improved with diuresis. 4. Systolic CHF with ejection fraction of less than 20%. 5. Diabetes mellitus. Plan: Continue Bumex 2 mg in the morning and 1 mg in the afternoon. Encouraged oral intake. Avoid nephrotoxic agents and hypotensive episodes. Continue to monitor renal function and urine output. Repeat electrolytes in the morning. D/c [facility]. F/u outpatient in 1-2 weeks; BMP in 2-3 days post-discharge.
[2017-12-09 11:53] LABS: Glucose,Whole Blood 91 mg/dL (75-99)
[2017-12-09] MEDS: hydrALAZINE HCL 25 MG TAB PO SCH ×2 (12:21→23:37)
--- NOTE | 2017-12-09 13:28 | PN ---
PROGRESS NOTE This patient has a history of ischemic cardiomyopathy. Patient remains stable. She had no respiratory distress during the night. She spends the night at 45 degree angle. Blood pressure is 110/53 mmHg. First and second heart sounds are normal. Lungs are clinically clear to auscultation and percussion. We will continue the patient's current medications. We will check her oxygen saturation with ambulation. If patient remains stable for the next 24 hours, we will discharge the patient tomorrow. MMFRANK / HOLGERN: [id number] /
[2017-12-09 20:31] LABS: Glucose,Whole Blood 185 mg/dL (75-99)
[2017-12-09] MEDS: ATORVASTATIN 20 MG TAB PO SCH (20:31)
[2017-12-09] MEDS: INSULIN DETEMIR 100 UNIT/ML 10 ML VIAL SQ SCH (20:32)
[2017-12-09] MEDS: MONTELUKAST 10 MG TAB PO SCH (20:33)
[2017-12-10 05:07] LABS: Anisocytosis Slight; Basophils % (A) 0 %; Eosinophils % (A) 0 %; HCT 36.4 % (34.0-46.0); HGB 11.9 gm/dL (11.4-16.0); Lymphocytes # (A) 1.1 k/uL (1.0-4.8); Lymphocytes % (A) 8 %; MCH 27.5 pg (25.0-35.0); MCHC 32.7 g/dL (31.0-37.0); MCV 84.1 fL (80.0-100.0); Mean Platelet Volume 9.1; Monocytes # (A) 1.2 k/uL (0-1.0); Monocytes % (A) 8 %; Neutrophils # (A) 11.9 k/uL (1.3-7.7); Neutrophils % (A) 81 %; Platelet Count 160 k/uL (150-450); RBC 4.33 m/uL (3.80-5.40); RDW 16.2 % (11.5-15.5); WBC 14.6 k/uL (3.8-10.6)
[2017-12-10 05:18] LABS: Calcium 8.8 mg/dL (8.4-10.2); Potassium 3.7 mmol/L (3.5-5.1)
--- NOTE | 2017-12-10 06:31 | P.PN ---
Subjective Progress Note Date: 12/10/17 Principal diagnosis: Shortness of breath Progress note dated 12/10/2017 66-year-old female with a history of acute hypoxemic respiratory failure secondary to flash pulmonary edema. She was initially intubated and then subsequently extubated from mechanical ventilation. Afterwards, she developed another episode of flash pulmonary edema but was able to be managed with BiPAP therapy. Currently, she's doing reasonably well. The patient has been weaned off of oxygen. She's not receiving any IV fluids. She might be able to be discharged to the floor and/or home later today. She denies any pain or difficulty breathing. She is not coughing or wheezing. There is no fever chills nausea vomiting or diarrhea. Denies any chest pain or palpitations. In addition, she is postop day #8 status post ICD generator change, she's had episodes of nonsustained ventricular tachycardia hypotension secondary to LV dysfunction nonischemic cardiomyopathy type 2 diabetes hypothyroidism chronic kidney disease, stage III obesity and long-term anticoagulation with Coumadin. Objective - Vital Signs Vital signs: Vital Signs Temp 97.7 F 12/10/17 00:00 Pulse 72 12/10/17 00:00 Resp 12 12/10/17 00:00 BP 118/58 12/10/17 00:00 Pulse Ox 92 L 12/10/17 00:00 Intake & Output 12/09/17 12/09/17 12/10/17 06:59 18:59 06:59 Intake Total 640 100 140 Output Total 800 750 400 Balance -160 -650 -260 Weight 122.9 kg 122.9 kg Intake: Oral 640 100 140 Output: Urine 800 750 400 Other: Voiding Method Indwelling Catheter Toilet Toilet # Voids 1 # Bowel Movements 1 ABP, PAP, CO, CI - Last Documented Arterial Blood Pressure 135/67 - Exam No acute distress, oriented 3. No supplemental oxygen noted. HEENT examination is grossly unremarkable. Mucous membranes are moist. No oral lesions. Neck supple. Full range of motion. No adenopathy thyromegaly or neck vein distention. Cardiovascular examination reveals regular rhythm rate. S1-S2 normal. No S3 or S4. 2/6 systolic murmur noted. Lungs reveal clear breath sounds. Her sounds are equal bilaterally. No adventitious lung sounds including wheezes rhonchi or crackles. Abdomen soft bowel sounds are heard. No masses or tenderness. Extremities are intact. Mild pitting edema of the lower extremities noted. No cyanosis or clubbing. Skin is without rash or lesion. Neurologic examination is brief but nonfocal. - Labs CBC & Chem 7: 12/10/17 04:40 12/10/17 04:40 Labs: Abnormal Lab Results - Last 24 Hours (Table) 12/09/17 12/10/17 12/10/17 Range/Units 20:24 04:40 04:40 WBC 14.6 H (3.8-10.6) k/uL RDW 16.2 H (11.5-15.5) % Neutrophils # 11.9 H (1.3-7.7) k/uL Monocytes # 1.2 H (0-1.0) k/uL Sodium 136 L (137-145) mmol/L BUN 106 H* (7-17) mg/dL Creatinine 2.00 H (0.52-1.04) mg/dL POC Glucose (mg/dL) 185 H (75-99) mg/dL Assessment and Plan Assessment: Assessment Acute hypoxemic respiratory failure secondary to flash pulmonary edema, initially requiring intubation and mechanical ventilation with subsequent extubation and subsequent to that, another episode of pulmonary edema managed with BiPAP therapy History of ICD generator change, postop day #8 Nonsustained ventricular tachycardia Hypotension, secondary to severe cardiomyopathy and LV dysfunction, resolved Nonischemic cardiopathy myopathy with ejection fraction of less than 20% Type 2 diabetes mellitus Hypothyroidism Stage III chronic kidney disease. Morbid obesity Plan: Plan dated 12/10/2017 The patient seemed be doing relatively well. The patient's currently been weaned off of oxygen. She'll need a resting room air saturation and also a saturation while she is ambulating. She may or may not need oxygen on discharge. From our perspective, the patient could be discharged to the floor and/or discharged home. We'll leave that up to the manager production in the hospital service. She's not getting any IV fluids at this time. She has no particular complaints. Her overall prognosis remains guarded. Additional recommendations and suggestions are forthcoming. White count 14.6 and hemoglobin 11.9, hematocrit 36.4 platelet count 160,000. Sodium 136 potassium chloride CO2 all normal. Anion gap normal. BUN 106 and creatinine 2. Chest x- ray is stable. Time with Patient: Less than 30
[2017-12-10] MEDS: BUDESONIDE 1 MG/2 ML NEBU INHALATION SCH (07:15)
[2017-12-10] MEDS: IPRATROPIUM-ALBUTEROL 3 ML NEB INHALATION SCH ×2 (07:15→10:44)
[2017-12-10 08:11] LABS: Glucose,Whole Blood 76 mg/dL (75-99)
[2017-12-10 08:45] VITALS: BP 119/66; RESP 18; TEMP 98.1
[2017-12-10] MEDS: BUMETANIDE 1 MG TAB PO SCH (08:45)
[2017-12-10] MEDS: cefTRIAXone IN SWFI 1,000 MG/10 ML SYRINGE IVP SCH (08:45)
[2017-12-10] MEDS: SPIRONOLACTONE 25 MG TAB PO SCH (08:45)
[2017-12-10] MEDS: METOPROLOL TARTRATE 25 MG TAB PO SCH (08:46)
[2017-12-10] MEDS: AMIODARONE 200 MG TAB PO SCH (08:46)
[2017-12-10] MEDS: LEVOTHYROXINE 25 MCG TAB PO SCH (08:46)
[2017-12-10] MEDS: FAMOTIDINE 20 MG TAB PO SCH (08:47)
[2017-12-10] MEDS: predniSONE 10 MG TAB PO SCH (08:47)
[2017-12-10] MEDS: NITROGLYCERIN OINT 1 INCH/GM PACKET TOPICAL SCH ×2 (08:47→13:35)
[2017-12-10] MEDS: INSULIN ASPART 100 UNIT/ML 1 ML 10 ML VIAL SQ SCH ×2 (08:48→13:35)
--- NOTE | 2017-12-10 09:54 | P.PN ---
Subjective patient is seen in follow-up for acute kidney injury on chronic kidney disease. Patient has chronic kidney disease stage III with baseline creatinine in the range of 1.5-2 secondary to cardiorenal syndrome. Creatinine peaked at 2.4 this admission and is down to 2.0 today. She is noted to have systolic CHF with ejection fraction of 20%. Dyspnea is improved. Oral intake is good. She is nonoliguric. Eager to go home. Vital signs are stable. General: The patient appeared well nourished and normally developed. HEENT: Head exam is unremarkable. Neck is without jugular venous distension. LUNGS: Lungs are clear to auscultation and percussion. Breath sounds decreased. HEART: Rate and Rhythm are regular. First and second heart sounds normal. No murmurs, rubs or gallops. ABDOMEN: Abdominal exam reveals normal bowel sounds. Non-tender and non- distended. No evidence of peritonitis. EXTREMITITES: No clubbing, cyanosis, or edema. Objective - Vital Signs Vital signs: Vital Signs Temp 98.1 F 12/10/17 08:38 Pulse 75 12/10/17 08:38 Resp 18 12/10/17 08:38 BP 119/66 12/10/17 08:38 Pulse Ox 95 12/10/17 08:38 Intake & Output 12/09/17 12/10/17 12/10/17 18:59 06:59 18:59 Intake Total 100 140 Output Total 750 400 Balance -650 -260 Weight 122.9 kg 122.2 kg Intake: Oral 100 140 Output: Urine 750 400 Other: Voiding Method Toilet Toilet # Voids 1 # Bowel Movements 1 ABP, PAP, CO, CI - Last Documented Arterial Blood Pressure 135/67 - Labs CBC & Chem 7: 12/10/17 04:40 12/10/17 04:40 Labs: Abnormal Lab Results - Last 24 Hours (Table) 12/09/17 12/10/17 12/10/17 Range/Units 20:24 04:40 04:40 WBC 14.6 H (3.8-10.6) k/uL RDW 16.2 H (11.5-15.5) % Neutrophils # 11.9 H (1.3-7.7) k/uL Monocytes # 1.2 H (0-1.0) k/uL Sodium 136 L (137-145) mmol/L BUN 106 H* (7-17) mg/dL Creatinine 2.00 H (0.52-1.04) mg/dL POC Glucose (mg/dL) 185 H (75-99) mg/dL Assessment and Plan Plan: Assessment: 1. Nonoliguric acute kidney injury mostly prerenal secondary to diuresis. Creatinine peaked at 2.4 this admission and is 2.0 today. 2. Chronic kidney disease stage III secondary to cardiorenal syndrome with baseline creatinine in the range of 1.5-2. No proteinuria on UA. 3. Pulmonary edema/fluid overload. Improved with diuresis. 4. Systolic CHF with ejection fraction of less than 20%. 5. Diabetes mellitus. Plan: Continue Bumex 2 mg in the morning and 1 mg in the afternoon. Encouraged oral intake. Avoid nephrotoxic agents and hypotensive episodes. Continue to monitor renal function and urine output. Repeat electrolytes in the morning. F/u outpatient in 1-2 weeks; BMP in 2-3 days post-discharge.
[2017-12-10 10:55] VITALS: PULSE 75
--- NOTE | 2017-12-10 12:26 | P.DS ---
Providers Date of admission: 12/02/17 16:30 Expected date of discharge: 12/10/17 Attending physician: Queta Adams Consults: 12/02/17 17:37 Consult Physician Stat Consulting Provider: Tennille Armenta Consult Reason/Comments: Intubated for acute respiratory failure/flash pulmonary edema Do you want consulting provider notified?: Yes 12/04/17 10:13 Consult Physician Stat Consulting Provider: Queta Adams Consult Reason/Comments: med management Do you want consulting provider notified?: Already Contacted Consult Physician Urgent Consulting Provider: [facility] Consult Reason/Comments: heart blockages Do you want consulting provider notified?: Already Contacted 12/07/17 10:40 Consult Physician Routine Consulting Provider: Mateus Goins Consult Reason/Comments: elevated creatinine Do you want consulting provider notified?: Yes Primary care physician: Nuria Jaimes Hospital Course: Discharge diagnosis 1 acute hypoxic respiratory failure requiring intubation and mechanical ventilation secondary to flash pulmonary edema secondary to severe cardiomyopathy and LV dysfunction. Patient has been extubated. Patient remains on Solu-Medrol, DuoNeb and pulmicort. Chest x-ray completed this morning showing interval extubation. Cardiomegaly and chronic emphysematous changes. Dr. Armenta for pulmonary services are following. Lasix drip has been discontinued patient is currently on bumex and Aldactone. Chest x-ray completed this a.m. showing stable chest. Patient has been cleared for discharge from pulmonary standpoint. Patient will go home on Ceftin antibiotic. Prednisone taper and DuoNeb nebulizers. Will follow-up outpatient 2 status post ICD generator change, postoperative day #7. 3 intermittent ventricular ectopy, being addressed by cardiology on the case. Patient remains on amiodarone. Cardiolgoy services are following. Possible transition to by mouth amiodarone today per cardiology. Patient currently on by mouth amiodarone 200 mg 3 times a day. Patient has been cleared for discharge from cardiology standpoint. patients hydralazine and Lopressor dose changed per cardiology recommendation. She also be discharged home on amiodarone 200 mg 3 times a day. Cozaar has been discontinued during stay per cardiology. Patient to follow-up outpatient with cardiology services 4 hypotension secondary to severe cardiomyopathy and LV dysfunction. patient currently off the Levophed drip. Resolved 5 nonischemic cardiomyopathy and LV dysfunction. Ejection fraction of less than 20%. 6 type 2 diabetes. Continue home Levemir dose of 41 units and sliding scale insulin. 7 hypothyroidism maintained on Synthroid 8 acute on chronic kidney failure with history of stage III chronic kidney disease. Bun 59, creatinine 1.90. Continue to monitor patient closely. BUN 111 and creatinine 2.40. Nephrology services are consulted. Bumex dose held last night per nephrology. Creatinine today 2.30 and bun 112. Intake 2.00 and bun 106. Patient has been cleared for discharge from nephrology standpoint. Continue home dose of Bumex 2 mg in a.m. and 1 mg in afternoon. Follow-up outpatient 1-2 weeks. BMP has been ordered 2-3 days post discharge per nephrology. 9 suspect some component of acute kidney injury and acute tubular necrosis. Secondary to hypotension. 10. Leukocytosis. White blood cell elevated at 20.3. Improved to 14.2. Patient remains on Rocephin for antibiotics. WBC 15.9 patient. Patient remains on Rocephin for antibiotics and prednisone 30 mg daily. Will be discharged home on Ceftin 500 twice a day for 7 days. Prednisone taper has been ordered 11. History of paroxysmal atrial fibrillation. Patient currently on Coumadin managed by cardiology. INR today 1.8. Cardiology managing. Continue current home Coumadin dose upon discharge. Hospital course This is a 66-year-old female, known history of severe cardiomyopathy, previous biventricular ICD placement. Patient has chronic severe congestive heart failure class III, patient was brought in yesterday by cardiology/Dr. Chavez for ICD generator change. While in the EP lab, left shoulder incision was made , partial capsulectomy was performed, device was removed, and a new device was connected. As the new device was being connected, patient started complaining of shortness of breath and difficulty breathing. Clinically the patient went into flash pulmonary edema with acute respiratory failure requiring intubation and mechanical ventilation. Patient was admitted to the intensive care unit On 12/04/2017 patient was extubated yesterday. Patient states she is feeling much improved. Patient is currently off the Levophed. Patient remains on amiodarone and Lasix drip. Patient denies chest pain or shortness breath at this time. Patient is being followed cardiology and Dr. Armenta. On 12/05/2017 patient currently resting comfortably in bed. Patient denies chest pain or shortness of breath at this time. Patient remains on amiodarone drip for possible transition to by mouth per cardiology today. Lasix drip has been discontinued and patient back on home dose of Bumex and Aldactone. Patient remains on Rocephin. Cardiology and pulmonary services are following. Patient denies chest pain or shortness of breath. On 12/06/2017 patient is alert and oriented 3 in no apparent distress, she is seen and examined in the intensive care unit, she is maintained on oxygen via nasal cannula and is tolerating well, she denies any chest pain or shortness of breath at this time, there is no cough no nausea or vomiting no abdominal pain and no urinary symptoms. She has chest wall pain at the site of recent pacemaker incision for battery change, otherwise she denies any symptoms at this time. On 12/07/2017 patient is alert and oriented 3 she is seen and examined in ICU complaining of chest wall pain site of incision otherwise she denies any complaints at this time there is no fever or chills no headache no dizziness no chest pain no shortness of breath no cough no nausea or vomiting no abdominal pain and no urinary symptoms On 12/08/2017 patient is alert and oriented 3 patient. Patient remains in the ICU. Patient denies shortness of breath or chest pain at this time. Patient's bun 111 today and creatinine 2.40. Nephrology services were consulted. Patient remains on 2 L of oxygen. On 12/09/2017 patient is alert and oriented 3 sitting in chair. Patient remains in intensive care unit but has been ordered to selective care per critical care team. Patient is eager to go home. Nephrology has been consulted. Creatinine today 2.30 and BUN 112. patient currently on room air. Patient denies chest pain or shortness of breath. Patient denies nausea vomiting or diarrhea. Patient denies any urinary symptoms at this time. On 12/10/2017 patient is alert and oriented 3 sitting in chair. Patient is eager to go home. Patient has been overflow in the intensive care unit for multiple days. Patient has been cleared for discharge from pulmonary, cardiology and nephrology standpoint. Patient will follow-up outpatient with consulting providers. Patient will be discharged home on amiodarone. And will follow-up PCP in 1-2 days Patient Condition at Discharge: Stable Plan - Discharge Summary Discharge Rx Participant: Yes New Discharge Prescriptions: New Amiodarone [Cordarone] 200 mg PO TID #90 tab Cefuroxime Axetil [Ceftin] 500 mg PO BID 7 Days #14 tab hydrALAZINE HCL [Apresoline] 25 mg PO 1200,0000 #60 tab Ipratropium-Albuterol Nebulize [Duoneb 0.5 mg-3 mg/3 ml Soln] 3 ml INHALATION QID #60 ampul.neb Ipratropium-Albuterol Nebulize [Duoneb 0.5 mg-3 mg/3 ml Soln] 3 ml INHALATION Q2H PRN #60 ampul.neb PRN Reason: Shortness Of Breath Or Wheezing Metoprolol Tartrate [Lopressor] 75 mg PO TID #120 tab predniSONE 10 mg PO DIRECTED #18 tab Continue Montelukast [Singulair] 10 mg PO HS Simvastatin [Zocor] 40 mg PO HS Warfarin Sodium [Coumadin] 6 mg PO SUTUTH Levothyroxine Sodium [Synthroid] 25 mcg PO DAILY@0630 #30 tab Warfarin Sodium [Coumadin] 3 mg PO MOWEFRSA Allopurinol [Zyloprim] 300 mg PO DAILY Spironolactone [Aldactone] 25 mg PO DAILY Albuterol Inhaler [Ventolin Hfa Inhaler] 1 - 2 puff INHALATION RT-Q6H PRN #1 inhaler PRN Reason: Wheezing Bumetanide [BUMEX] 2 mg PO AC-BRKFST Bumetanide [BUMEX] 1 mg PO HS Insulin Glargine,Hum.rec.anlog [Basaglar Lisaikpen U-100] 41 unit SQ HS Discontinued hydrALAZINE HCL [Apresoline] 25 mg PO TID Metoprolol Tartrate [Lopressor] 100 mg PO BID Losartan Potassium [Cozaar] 50 mg PO DAILY Discharge Medication List Montelukast [Singulair] 10 mg PO HS 09/23/13 [History] Simvastatin [Zocor] 40 mg PO HS 09/23/13 [History] Warfarin Sodium [Coumadin] 6 mg PO SUTUTH 09/23/13 [History] Levothyroxine Sodium [Synthroid] 25 mcg PO DAILY@0630 #30 tab 09/26/13 [Rx] Allopurinol [Zyloprim] 300 mg PO DAILY 12/20/15 [History] Spironolactone [Aldactone] 25 mg PO DAILY 12/20/15 [History] Warfarin Sodium [Coumadin] 3 mg PO MOWEFRSA 12/20/15 [History] Albuterol Inhaler [Ventolin Hfa Inhaler] 1 - 2 puff INHALATION RT-Q6H PRN #1 inhaler 12/21/15 [Rx] Bumetanide [BUMEX] 1 mg PO HS 11/24/17 [History] Bumetanide [BUMEX] 2 mg PO AC-BRKFST 11/24/17 [History] Insulin Glargine,Hum.rec.anlog [Basaglar Kwikpen U-100] 41 unit SQ HS 12/02/17 [ History] Amiodarone [Cordarone] 200 mg PO TID #90 tab 12/10/17 [Rx] Cefuroxime Axetil [Ceftin] 500 mg PO BID 7 Days #14 tab 12/10/17 [Rx] Ipratropium-Albuterol Nebulize [Duoneb 0.5 mg-3 mg/3 ml Soln] 3 ml INHALATION Q2H PRN #60 ampul.neb 12/10/17 [Rx] Ipratropium-Albuterol Nebulize [Duoneb 0.5 mg-3 mg/3 ml Soln] 3 ml INHALATION QID #60 ampul.neb 12/10/17 [Rx] Metoprolol Tartrate [Lopressor] 75 mg PO TID #120 tab 12/10/17 [Rx] hydrALAZINE HCL [Apresoline] 25 mg PO 1200,0000 #60 tab 12/10/17 [Rx] predniSONE 10 mg PO DIRECTED #18 tab 12/10/17 [Rx] Activity/Diet/Wound Care/Special Instructions: Diet heart healthy Activity as tolerated BMP ordered for 2-3 days per nephrology PT/ INR for 3 days per cardiology
[2017-12-10 13:40] VITALS: BMI 52.6
[2017-12-10 14:07] LABS: Glucose,Whole Blood 141 mg/dL (75-99)
--- NOTE | 2017-12-10 19:47 | PN ---
PROGRESS NOTE This patient has a nonischemic cardiomyopathy, status post generator change. The patient has remained comfortable without any respiratory distress. She has been ambulating in the intensive care unit. Oxygen saturations are well maintained. Blood pressure is 119/66 mmHg. First and second heart sounds are normal. Lungs are clinically clear to auscultation and percussion. The patient's creatinine is 2.0. Patient will be discharged home today. She is advised to take Bumex 2 mg in the morning and 1 mg in the evening. The patient will have BMP done in 1 week. I will see the patient in the office in 1-2 weeks. MMODL / IJN: [id number] /
== END 2017-12-10 15:46 | disposition home or self-care (01) | DRG 245 ==
LOC: CATHEP 13:42 → 6ICU 16:30 → CATHEP 17:51 → 6ICU 18:11
PROVIDERS: ADMIT Internal Medicine; ATTEND Internal Medicine
PROC: 5A1935Z Respiratory Ventilation, Less than 24 Consecutive Hours (ICD-10-PCS; 2017-12-02)
PROC: 0D9670Z Drainage of Stomach with Drainage Device, Via Natural or Artificial Opening (ICD-10-PCS; 2017-12-02)
PROC: 0BH17EZ Insertion of Endotracheal Airway into Trachea, Via Natural or Artificial Opening (ICD-10-PCS; 2017-12-02)
PROC: 0JPT0PZ Removal of Cardiac Rhythm Related Device from Trunk Subcutaneous Tissue and Fascia, Open Approach (ICD-10-PCS; principal; 2017-12-02 15:03)
PROC: 0JH609Z Insertion of Cardiac Resynchronization Defibrillator Pulse Generator into Chest Subcutaneous Tissue and Fascia, Open Approach (ICD-10-PCS; principal; 2017-12-02 15:03)
PROC: 5A09457 Assistance with Respiratory Ventilation, 24-96 Consecutive Hours, Continuous Positive Airway Pressure (ICD-10-PCS; 2017-12-05)
DX: I13.0 Hypertensive heart and chronic kidney disease with heart failure and stage 1 through stage 4 chronic kidney disease, or unspecified chronic kidney disease (principal); I50.23 Acute on chronic systolic (congestive) heart failure; J96.01 Acute respiratory failure with hypoxia; N17.0 Acute kidney failure with tubular necrosis; Z68.43 Body mass index [BMI] 50.0-59.9, adult; I47.2 Ventricular tachycardia; I95.9 Hypotension, unspecified; E11.22 Type 2 diabetes mellitus with diabetic chronic kidney disease; E66.01 Morbid (severe) obesity due to excess calories; N18.3 Chronic kidney disease, stage 3 (moderate); E83.42 Hypomagnesemia; I42.9 Cardiomyopathy, unspecified; J43.9 Emphysema, unspecified; I48.0 Paroxysmal atrial fibrillation; D72.829 Elevated white blood cell count, unspecified; I49.3 Ventricular premature depolarization; E03.9 Hypothyroidism, unspecified; E78.5 Hyperlipidemia, unspecified; I25.10 Atherosclerotic heart disease of native coronary artery without angina pectoris; T50.2X5A Adverse effect of carbonic-anhydrase inhibitors, benzothiadiazides and other diuretics, initial encounter; D64.9 Anemia, unspecified; N39.3 Stress incontinence (female) (male); M79.7 Fibromyalgia; I83.90 Asymptomatic varicose veins of unspecified lower extremity; M10.9 Gout, unspecified; Z71.3 Dietary counseling and surveillance; Z79.01 Long term (current) use of anticoagulants; Z79.890 Hormone replacement therapy; Z79.4 Long term (current) use of insulin; Z79.899 Other long term (current) drug therapy; Z87.01 Personal history of pneumonia (recurrent); Z87.19 Personal history of other diseases of the digestive system; Z98.51 Tubal ligation status; Z87.891 Personal history of nicotine dependence; Z88.8 Allergy status to other drugs, medicaments and biological substances; Z91.048 Other nonmedicinal substance allergy status; Z82.49 Family history of ischemic heart disease and other diseases of the circulatory system
CPT/HCPCS: 33264; 71045; 80048; 80053; 81001; 82805; 83036; 83735; 84100; 84132; 85025; 85027; 85610; 87070; 87205; 94002; 94003; 94640; 94660

== ENCOUNTER 2021-07-27 18:25 | Emergency (ER) | payer MEDICARE, OTHER ==
--- NOTE | 2021-07-27 18:40 | ED ---
General Adult HPI - General Stated complaint: Cardiac Arrest - History of Present Illness Initial comments: Dictation was produced using [email or web address] dictation software. please excuse any grammatical, word or spelling errors. Chief Complaint: 70-year-old female presents emergency department for cardiac arrest History of Present Illness: 70-year-old female she is brought in by EMS for cardiac arrest. Time of arrest was approximately 5:00 PM. Patient had CPR for approximately 50 minutes prior to arrival. History obtained from EMS. Initially EMS reports were patient had some respiratory distress followed by collapse. EMS reports that there was some bystander CPR. Upon their arrival patient had a paced rhythm. She denied a pulse. They started CPR she is given multiple rounds of epinephrine and amiodarone. EMS reports that she did have ventricular fibrillation and different ablation attempts were made. At no point did EMS have return of spontaneous circulation. Chart review shows that patient has a history of coronary artery disease, severe cardiomyopathy, AICD. Unable to obtain ROS second her to mental status PHYSICAL EXAM: General Impression: Obtunded, fixed dilated pupils, adrian HEENT: Normocephalic atraumatic, intubated Cardiovascular: Pulseless Chest: Easy to bag, positive breath sounds bilaterally with Abdomen: abdomen soft, non-distended, no organomegaly Musculoskeletal: Pulseless Motor: no focal deficits noted Neurological: Fixed and dilated pupils ED course: 70-year-old female with significant cardiac history presents to the emergency department after cardiac arrest. Given her bradycardia had 50 minutes of CPR with no return of spontaneous circulation. Patient is receiving trauma bay #2. CPR was continued for 3 more rounds. After the third round in our emergency department echocardiogram performed at bedside showed cardiac standstill. Resuscitative measures were discussed and continued. Time of was 1829. More history was obtained from daughter and and family meeting [facility]. The report that at approximately 5:30 PM patient was having respiratory distress. She's had similar symptoms like this in the past secondary to her cardiomyopathy though not this severe. Daughter states that she was there when patient became unresponsive and began performing CPR. Daughter reports that she called 911 multiple times [place] She checked her phone and states that it was at approximately 5:30 PM when she called. They report that patient has extensive history of coronary artery disease and cardiac history. They were notified of patient's passing. - Related Data Home Medications Medication Instructions Recorded Confirmed Montelukast [Kehindeulair] 10 mg PO HS 09/23/13 12/02/17 Simvastatin [Zocor] 40 mg PO HS 09/23/13 12/02/17 Warfarin Sodium [Coumadin] 6 mg PO SUTUTH 09/23/13 12/02/17 Spironolactone [Aldactone] 25 mg PO DAILY 12/20/15 12/02/17 Warfarin Sodium [Coumadin] 3 mg PO MOWEFRSA 12/20/15 12/02/17 allopurinoL [Zyloprim] 300 mg PO DAILY 12/20/15 12/02/17 Bumetanide [BUMEX] 1 mg PO HS 11/24/17 12/02/17 Bumetanide [BUMEX] 2 mg PO AC-BRKFST 11/24/17 12/02/17 Insulin Glargine,Hum.rec.anlog 41 unit SQ HS 12/02/17 12/02/17 [Vida Wiley U-100] Previous Rx's Medication Instructions Recorded Levothyroxine Sodium [Synthroid] 25 mcg PO DAILY@0630 #30 tab 09/26/13 Albuterol Inhaler (Mhu) [Ventolin 1 - 2 puff INHALATION RT-Q6H PRN 12/21/15 Hfa Inhaler (Mhu)] #1 inhaler Amiodarone [Cordarone] 200 mg PO TID #90 tab 12/10/17 Cefuroxime Axetil [Ceftin] 500 mg PO BID 7 Days #14 tab 12/10/17 Ipratropium-Albuterol Nebulize 3 ml INHALATION Q2H PRN #60 12/10/17 [Duoneb 0.5 mg-3 mg/3 ml Soln] ampul.neb Ipratropium-Albuterol Nebulize 3 ml INHALATION QID #60 ampul.neb 12/10/17 [Duoneb 0.5 mg-3 mg/3 ml Soln] Metoprolol Tartrate [Lopressor] 75 mg PO TID #120 tab 12/10/17 hydrALAZINE HCL [Apresoline] 25 mg PO 1200,0000 #60 tab 12/10/17 predniSONE 10 mg PO DIRECTED #18 tab 12/10/17 Allergies Allergy/AdvReac Type Severity Reaction Status Date / Time sotalol Allergy Rapid Verified 12/02/17 19:11 Heart Rate ADHESIVE TAPE Allergy Itching Uncoded 12/02/17 14:00 Review of Systems ROS Statement: Those systems with pertinent positive or pertinent negative responses have been documented in the HPI. ROS Other: All systems not noted in ROS Statement are negative. Past Medical History Past Medical History: Asthma, Coronary Artery Disease (CAD), Heart Failure, COPD, Diabetes Mellitus, Fibromyalgia, Hyperlipidemia, Hypertension, Renal Disease, Thyroid Disorder Additional Past Medical History / Comment(s): RENAL INSUFFICENCY,GOUT,ARRYTHMIA, CARDIOMYOPATHY,VARICOSE VEINS,HX PNEUMONIA & BRONCHITIS, HEMMRROIDS, STRESS INCONT OF URINE, ANEMIA; See DR IGNACIO'S H&P History of Any Multi-Drug Resistant Organisms: None Reported Past Surgical History: Heart Catheterization, Tubal Ligation Additional Past Surgical History / Comment(s): 3 LEAD PACEMAKER AND DEFIB, RT BREAST LUMPECTOMY(BENIGN) HEART CATH 1996, BRONCHOSCOPY , Past Anesthesia/Blood Transfusion Reactions: No Reported Reaction Type of Cardiac Device: Permanent Pacemaker Device Placement Date:: Past Psychological History: No Psychological Hx Reported Past Alcohol Use History: None Reported Additional Past Alcohol Use History / Comment(s): smoked 1ppd from teens until 1985 Past Drug Use History: None Reported - Past Family History Father Family Medical History: Congestive Heart Failure (CHF), Coronary Artery Disease (CAD) Medical Decision Making - Lab Data Lab Results 07/27/21 Range/Units 18:31 POC Glucose (mg/dL) 194 H (75-99) mg/dL POC Glu Stud Driver ID Serina Dumont Disposition Clinical Impression: Cardiac arrest Disposition: Referrals: Nuria Jaimes MD [Primary Care Provider] - 1-2 days Preliminary Cause of : cardiac arrest
[2021-07-27 18:41] LABS: Glucose,Whole Blood 194 mg/dL (75-99)
== END 2021-07-27 21:30 | disposition expired ==
LOC: EC 18:25
DX: I46.9 Cardiac arrest, cause unspecified (principal); I11.0 Hypertensive heart disease with heart failure; I50.9 Heart failure, unspecified; I25.10 Atherosclerotic heart disease of native coronary artery without angina pectoris; E11.9 Type 2 diabetes mellitus without complications; J44.9 Chronic obstructive pulmonary disease, unspecified; E78.5 Hyperlipidemia, unspecified; M10.9 Gout, unspecified; M79.7 Fibromyalgia; Z79.01 Long term (current) use of anticoagulants; Z79.4 Long term (current) use of insulin; Z79.890 Hormone replacement therapy; Z79.51 Long term (current) use of inhaled steroids; Z79.899 Other long term (current) drug therapy
CPT/HCPCS: 36415; 99285